=== PATIENT | male | born 1950 | race African-American/Black ===

== ENCOUNTER 2020-09-11 13:51 | Inpatient (IN) | payer MEDICARE ==
[~2020-09-11] VITALS: Ht 175.3 cm; Wt 77.4 kg
[2020-09-11] MEDS ORDERED: MORPHINE SULFATE 10 MG/ML VIAL. IV ONE (17:45)
[2020-09-11] MEDS ORDERED: IV NORMAL SALINE 1000ML BAG 1,000 ML IV ONE (17:45)
[2020-09-11 17:52] LABS: BASO # 0.1 x10^3/uL (0.0-0.2); BASO % 1 % (0-3); EOS % 0 % (0-3); HEMATOCRIT 29.8 % (39.0-53.0); HEMOGLOBIN 9.4 g/dL (13.0-17.5); LYMPH # 1.5 x10^3/uL (1.0-4.8); LYMPH % 16 % (24-48); MEAN CORPUSCULAR HEMOGLOBIN 24 pg (25-35); MEAN CORPUSCULAR HGB CONC 32 g/dL (31-37); MEAN CORPUSCULAR VOLUME 76 fL (79-100); MONO # 0.4 x10^3/uL (0.0-1.1); MONO % 4 % (0-9); NEUT # 7.2 x10^3/uL (1.8-7.7); NEUT % 78 % (31-73); PLATELET COUNT 435 x10^3/uL (140-400); RED BLOOD COUNT 3.93 x10^6/uL (4.30-5.70); RED CELL DISTRIBUTION WIDTH 16.1 % (11.5-14.5); WHITE BLOOD COUNT 9.2 x10^3/uL (4.0-11.0)
--- NOTE | 2020-09-11 18:28 | ED.ADGEN ---
Past Medical History Past Medical History: Diabetes-Type II Past Surgical History: Other Additional Past Surgical Histo: leg sx Smoking Status: Former Smoker Alcohol Use: Occasionally General Adult EDM: Chief Complaint: ABDOMINAL PAIN HPI: HPI: Patient 69-year-old male presents to the emergency room complaining of diffuse abdominal pain that has been ongoing for the last 5 months. He describes it as a gnawing pain that has progressively gotten worse. He states that he cannot eat or drink much. He intermittently has diarrhea and constipation. He has nausea without vomiting. He has lost over 30 pounds in the last 5 months. He states that the pain has become unbearable which is why he is coming to the emergency room today. He denies any cough, shortness of breath, URI symptoms, fevers, chills, sweats. Review of Systems: Review of Systems: Complete ROS is negative unless otherwise documented in HPI Constitutional: Denies fever or chills but has had weight loss Eyes: Denies change in visual acuity HENT: Denies sore throat Respiratory: Denies cough or shortness of breath Cardiovascular: Denies chest pain or edema GI: Complains of abdominal pain with fullness : Denies dysuria Musculoskeletal: Denies back pain or joint pain Integument: Denies rash Neurologic: Denies headache or focal weakness Psychiatric: Denies depression or anxiety Current Medications: Current Medications Medications (Trade) Dose Ordered Sig/Syeda Start Time Stop Time Status Last Admin Dose Admin Info (CONTRAST GIVEN -- Rx MONITORING) 1 each PRN DAILY PRN 09/11/20 19:00 09/13/20 18:59 Iohexol (Omnipaque 240 Mg/ml) 30 ml 1X ONCE 09/11/20 19:00 09/11/20 19:01 DC Morphine Sulfate (Morphine Sulfate) 2 mg PRN Q2HR PRN 09/11/20 20:15 09/12/20 20:14 Ondansetron HCl (Zofran) 4 mg PRN Q8HRS PRN 09/11/20 20:15 09/12/20 20:14 Sodium Chloride 1,000 ml @ 1,000 mls/hr 1X ONCE 09/11/20 17:45 09/11/20 18:44 DC 09/11/20 17:47 1,000 MLS/HR Allergies: Allergies: Allergies Coded Allergies Type Severity Reaction Last Updated Verified No Known Drug Allergies 09/11/20 No Physical Exam: PE: General: Awake, alert, NAD. Well Nourished, well hydrated. Cooperative HEENT: Atraumatic, EOMI, PERRL, airway patent, moist oral mucosa Neck: Supple, trachea midline Respiratory: CTA bilaterally, normal effort, no wheezing/crackles CV: RRR, no murmur, cap refill <2 GI: Soft, nondistended, nontender, no masses MSK: No obvious deformities Skin: Warm, dry, intact Neuro: A&O x3, speech NL, sensory and motor grossly intact, no focal deficits Psych: Normal affect, normal mood, not suicidal or homicidal Current Patient Data: Labs: Laboratory Tests Test 09/11/20 17:45 09/11/20 18:24 White Blood Count 9.2 x10^3/uL (4.0-11.0) Red Blood Count 3.93 x10^6/uL (4.30-5.70) L Hemoglobin 9.4 g/dL (13.0-17.5) L Hematocrit 29.8 % (39.0-53.0) L Mean Corpuscular Volume 76 fL (79-100) L Mean Corpuscular Hemoglobin 24 pg (25-35) L Mean Corpuscular Hemoglobin Concent 32 g/dL (31-37) Red Cell Distribution Width 16.1 % (11.5-14.5) H Platelet Count 435 x10^3/uL (140-400) H Neutrophils (%) (Auto) 78 % (31-73) H Lymphocytes (%) (Auto) 16 % (24-48) L Monocytes (%) (Auto) 4 % (0-9) Eosinophils (%) (Auto) 0 % (0-3) Basophils (%) (Auto) 1 % (0-3) Neutrophils # (Auto) 7.2 x10^3/uL (1.8-7.7) Lymphocytes # (Auto) 1.5 x10^3/uL (1.0-4.8) Monocytes # (Auto) 0.4 x10^3/uL (0.0-1.1) Eosinophils # (Auto) 0.0 x10^3/uL (0.0-0.7) Basophils # (Auto) 0.1 x10^3/uL (0.0-0.2) Sodium Level 141 mmol/L (136-145) Potassium Level 4.7 mmol/L (3.5-5.1) Chloride Level 106 mmol/L (98-107) Carbon Dioxide Level 27 mmol/L (21-32) Anion Gap 8 (6-14) Blood Urea Nitrogen 23 mg/dL (8-26) Creatinine 2.2 mg/dL (0.7-1.3) H Estimated GFR (Cockcroft-Gault) 36.1 BUN/Creatinine Ratio 10 (6-20) Glucose Level 234 mg/dL (70-99) H Calcium Level 8.2 mg/dL (8.5-10.1) L Total Bilirubin 0.3 mg/dL (0.2-1.0) Aspartate Amino Transferase (AST) 34 U/L (15-37) Alanine Aminotransferase (ALT) 15 U/L (16-63) L Alkaline Phosphatase 104 U/L (46-116) Total Protein 5.6 g/dL (6.4-8.2) L Albumin 2.1 g/dL (3.4-5.0) L Albumin/Globulin Ratio 0.6 (1.0-1.7) L Lipase 62 U/L (73-393) L Laboratory Tests 09/11/20 17:45 Laboratory Tests 09/11/20 18:24 Vital Signs: Vital Signs Date Time Temp Pulse Resp B/P (MAP) Pulse Ox O2 Delivery O2 Flow Rate FiO2 09/11/20 20:00 87 16 110/61 (77) 98 Room Air 09/11/20 15:50 98.6 98.6 EKG: EKG: [] Heart Score: Risk Factors: Risk Factors: DM, Current or recent (<one month) smoker, HTN, HLP, family history of CAD, obesity. Risk Scores: Score 0 - 3: 2.5% MACE over next 6 weeks - Discharge Home Score 4 - 6: 20.3% MACE over next 6 weeks - Admit for Clinical Observation Score 7 - 10: 72.7% MACE over next 6 weeks - Early Invasive Strategies Radiology/Procedures: Radiology/Procedures: [][facility] [address] [place] [address] IMAGING REPORT Signed PATIENT: REMI ROLLINS Michael ACCOUNT: [id number] : 1950 LOCATION: ER AGE: 69 SEX: M EXAM STATUS: REG ER ORD. PHYSICIAN: KARYN MAURICIO MD REASON: abdominal pain, elderly, drink @1750 scan at 1850, omni 240 30 ml po PROCEDURE: CT ABD PEL W/ORAL CONTRST ONLY Exam: CT of abdomen and pelvis with contrast INDICATION: Abdominal pain, TECHNIQUE: Sequential axial images through the abdomen and pelvis obtained without IV contrast. Sagittal and coronal reformatted images were reconstructed from the axial data and reviewed. Comparisons: None FINDINGS: Heart size is normal. No pericardial effusion. There are numerous pulmonary nodules in the lungs, largest is a spiculated nodule right middle lobe which measures 1.2 cm. Evaluation of solid organs limited secondary to noncontrast technique. There are numerous vague hypoattenuating masses noted throughout the liver, for example in the right anterior hepatic lobe measuring approximately 3.3 cm series 3 image 27. Spleen, pancreas, gallbladder and adrenals are unremarkable. No perinephric inflammation or hydronephrosis. No renal or ureteral calculi are identified. Bladder is decompressed not well evaluated. Prostate is not enlarged. Diverticulosis noted in the sigmoid colon without evidence of acute diverticulitis. There is masslike appearance at the hepatic flexure of the colon. The cecum is mildly dilated. There is adjacent fat stranding. Small amount of free fluid. No free intra-abdominal air. Abdominal aorta has a normal course and caliber. No enlarged intra-abdominal lymph nodes are identified. Numerous sclerotic lesions are noted in the pelvis. IMPRESSION: 1. Findings concerning for malignancy at the hepatic flexure of the colon. The more proximal ascending colon is dilated with adjacent fat stranding which may relate to colitis. Mass may also be causing obstruction at this site. 2. Numerous vague hypoattenuating masses in the liver concerning for metastatic disease. 3. Numerous pulmonary nodules again concerning for metastatic disease. Exposure: One or more of the following in the visualized dose reduction techniques were utilized for this examination: 1. Automated exposure control 2. Adjustment of the MA and/or KV according to patient size 3. Use of iterative of reconstructive technique Electronically signed by: Aleah Berrios MD (09/11/2020 7:27 PM) [facility] DICTATED and SIGNED BY: ALEAH BERRIOS MD DATE: 09/11/20 [id number] 0 Course & Med Decision Making: Course & Med Decision Making Pertinent Labs and Imaging studies reviewed. (See chart for details) Patient is a 69 year-old male who presents to the Emergency Room complaining of abdominal pain and weight loss. On exam, has diffuse mild tenderness. Due to patients history, age, and exam work up will need to be done to evaluate for intra-abdominal pathology. Work up ordered includes CBC, CMP, lipase, UA, CT abdomen and pelvis. Patient's pain is not epigastric and a cardiac evaluation does not be needed for atypical pain. Ddx includes gastritis, colitis, malignancy. Patient is discussed with oncoming physician who will assume care. Patient initially seen by Dr. Mauricio and care endorsed to me. Patient had weigh t loss and unfortunately CT is concerning for colon cancer. Patient also has a plus obstructing mass in the colon. Discussed case with Dr. Vallejo will admit. I will place consult with GI, surgery as well as heme-onc. Discussed with patient the results and need for admission. Dragon Disclaimer: Dragon Disclaimer: This electronic medical record was generated, in whole or in part, using a voice recognition dictation system. Departure Departure Impression: Primary Impression: Abdominal pain Additional Impression: Cancer of ascending colon metastatic to intra-abdominal lymph node Disposition: 09 ADMITTED INPT THIS HOSP Admitting Physician: NICA (DENISE) Condition: STABLE Referrals: JUAN BLAKE DO (PCP) Problem Qualifiers KARYN MAURICIO MD Sep 11, 2020 18:28 JOAQUÍN NICOLE MD Sep 11, 2020 19:46
[2020-09-11 18:36] LABS: CALCIUM 8.2 mg/dL (8.5-10.1); CREATININE 2.2 mg/dL (0.7-1.3); GFR 36.1; POTASSIUM 4.7 mmol/L (3.5-5.1)
[2020-09-11 18:41] LABS: ALBUMIN 2.1 g/dL (3.4-5.0); ALBUMIN/GLOBULIN RATIO 0.6 (1.0-1.7); TOTAL BILIRUBIN 0.3 mg/dL (0.2-1.0); TOTAL PROTEIN 5.6 g/dL (6.4-8.2)
[2020-09-11] MEDS ORDERED: IOHEXOL 240 MG/ML 50ML VIAL. PO ONE (19:00)
[2020-09-11] MEDS ORDERED: CONTRAST GIVEN. MC PRN (19:00)
--- NOTE | 2020-09-11 19:30 | RAD ---
Exam: CT of abdomen and pelvis with contrast INDICATION: Abdominal pain, TECHNIQUE: Sequential axial images through the abdomen and pelvis obtained without IV contrast. Sagit edgar and coronal reformatted images were reconstructed from the axial data and reviewed. Comparisons: None FINDINGS: Heart size is normal. No pericardial effusion. There are numerous pulmonary nodules in the lungs, lar gest is a spiculated nodule right middle lobe which measures 1.2 cm. Evaluation of solid organs limited secondary to noncontrast technique. There are numerous vague hypoattenuating masses noted throughout the liver, for example in the right anterior hepatic lobe measuring approximately 3.3 cm series 3 image 27. Spleen, pancreas, gallbladder and adrenals are unremarkable. No perinephric inflammation or hydronephrosis. No renal or ureteral calculi are identified. Bladder is decompressed not well evaluated. Prostate is not enlarged. Diverticulosis noted in the sigmoid colon without evidence of acute diverticulitis. There is masslike appearance at the hepatic flexure of the colon. The cecum is mildly dilated. There is adjacent fat s tranding. Small amount of free fluid. No free intra-abdominal air. Abdominal aorta has a normal course and caliber. No enlarged intra-abdominal lymph nodes are identified. Numerous sclerotic lesions are noted in the pelvis. IMPRESSION: 1. Findings concerning for malignancy at the hepatic flexure of the colon. The more proximal ascendi ng colon is dilated with adjacent fat stranding which may relate to colitis. Mass may also be causing obstruction at this site. 2. Numerous vague hypoattenuating masses in the liver concerning for metastatic disease. 3. Numerous pulmonary nodules again concerning for metastatic disease. Exposure: One or more of the following in the visualized dose reduction techniques were utilized for this examination: 1. Automated exposure control 2. Adjustment of the MA and/or KV according to patient size 3. Use of iterative of reconstructive technique Electronically signed by: Aleah Munson MD (09/11/2020 7:27 PM) [facility]
[2020-09-11] MEDS ORDERED: MORPHINE SULFATE 2 MG/ML VIAL. IV PRN (20:15)
[2020-09-11] MEDS ORDERED: ONDANSETRON PF 4 MG/2 ML VIAL. IV PRN (20:15)
[2020-09-11 21:30] VITALS: BP 129/74
--- NOTE | 2020-09-11 22:00 | NUR ---
ADMIT NOTE The patient, REMI ROLLINS, 69 y/o, M admitted by JAZMÍN WALKER MD, was given written information regarding hospital policies, unit procedures and contact persons. Patient orientated to room, plan of care discussed, and admit packet reviewed. Patient's belongings checked and allergies/home medications verified. Patient now in bed, bed in lowest/locked position, and call light within reach; no other needs voiced at this time.
[2020-09-11] MEDS ORDERED: GLIP5TAB10 PO (22:19)
[2020-09-11] MEDS ORDERED: LISI-517 PO (22:19)
[2020-09-11 23:34] VITALS: BP 118/64
[2020-09-12 03:00] VITALS: BP 110/59
[2020-09-12 07:00] VITALS: BP 112/60
--- NOTE | 2020-09-12 07:12 | PDOC1 ---
History and Physical Date of Admission Date of Admission DATE: 09/12/20 TIME: 06:49 Identification/Chief Complaint Chief Complaint Abdominal pain Source Source: Chart review, Patient History of Present Illness History of Present Illness Patient is 69-year-old male with past medical history DM2, who presents to the ER with complaints of worsening diffuse abdominal pain for the past 5 months. He reports aching/gnawing pain, 8/10. He has associated decreased appetite, intermittent constipation, and intermittent diarrhea. He notes roughly 30 pound unintentional weight loss over this time. He denies any specific aggravating or alleviating symptoms. He did have an appointment earlier this month for CT abdomen that he missed, and was rescheduled for September. He came to the ED due to worsening of his symptoms. CT abdomen pelvis obtained on admission showed findings concerning for malignancy of the colon. Will admit patient for further medical management. Past Medical History Past Medical History DM2 Past Surgical History Past Surgical History: Other (Leg surgery) Social History Smoke: Quit ALCOHOL: occassional Drugs: None Current Problem List Problem List Problems Medical Problems: (1) Abdominal pain Status: Acute (2) Cancer of ascending colon metastatic to intra-abdominal lymph node Status: Acute Current Medications Current Medications Current Medications Sodium Chloride 1,000 ml @ 1,000 mls/hr 1X ONCE IV Last administered on 09/11/20at 17:47; Start 09/11/20 at 17:45; Stop 09/11/20 at 18:44; Status DC Morphine Sulfate (Morphine Sulfate) 5 mg 1X ONCE IV Last administered on 09/11/20at 17:48; Start 09/11/20 at 17:45; Stop 09/11/20 at 17:46; Status DC Iohexol (Omnipaque 240 Mg/ml) 30 ml 1X ONCE PO Last administered on 09/11/20at 17:50; Start 09/11/20 at 19:00; Stop 09/11/20 at 19:01; Status DC Info (CONTRAST GIVEN -- Rx MONITORING) 1 each PRN DAILY PRN MC SEE COMMENTS; Start 09/11/20 at 19:00; Stop 09/13/20 at 18:59 Ondansetron HCl (Zofran) 4 mg PRN Q8HRS PRN IV NAUSEA/VOMITING; Start 09/11/20 at 20:15; Stop 12/27/20 at 20:14 Morphine Sulfate (Morphine Sulfate) 2 mg PRN Q2HR PRN IV PAIN Last administered on 09/11/20at 22:03; Start 09/11/20 at 20:15; Stop 09/12/20 at 20:14 Active Scripts Active Reported Glipizide 5 Mg Tablet 1 Tab PO BID Lisinopril 5 Mg Tablet 5 Mg PO BID Allergies Allergies: Coded Allergies: No Known Drug Allergies (Unverified , 09/11/20) ROS Review of System GENERAL: No history of weight change, weakness or fevers. SKIN: No bruising, hair changes or rashes. EYES: No blurred, double or loss of vision. NOSE AND THROAT: No history of nosebleeds, hoarseness or sore throat. HEART: Denies chest pain, denies palpitations. LUNGS: Denies cough, hemoptysis, wheezing or shortness of breath. GASTROINTESTINAL: Abdominal pain, diarrhea, constipation, decreased appetite GENITOURINARY: Denies dysuria, frequency, urgency, hematuria. NEUROLOGIC: Denies history of numbness, tingling, tremor or weakness. PSYCHIATRIC: Denies anxiety, denies depression. ENDOCRINE: No history of heat or cold intolerance, polyuria or polydipsia. EXTREMITIES: Denies muscle weakness, joint pain, pain on walking or stiffness. Physical Exam Physical Exam General: Alert, Oriented X3, Cooperative, mild distress HEENT: PERRLA, EOMI Lungs: Clear to auscultation, Normal air movement Heart: RRR, no murmurs Cardiovascular: S1, S2 Abdomen: Normal bowel sounds, Soft, No tenderness Extremities: No clubbing, No cyanosis Skin: No rashes, No significant lesion Neuro: Normal speech, Normal tone, Sensation intact Psych/Mental Status: Mental status NL, Mood NL Vitals Vitals Vital Signs Date Time Temp Pulse Resp B/P (MAP) Pulse Ox O2 Delivery O2 Flow Rate FiO2 09/12/20 03:00 99.0 90 18 110/59 (76) 100 Room Air 99.0 Labs Labs Laboratory Tests Test 09/11/20 17:45 09/11/20 18:24 White Blood Count 9.2 x10^3/uL (4.0-11.0) Red Blood Count 3.93 x10^6/uL (4.30-5.70) Hemoglobin 9.4 g/dL (13.0-17.5) Hematocrit 29.8 % (39.0-53.0) Mean Corpuscular Volume 76 fL (79-100) Mean Corpuscular Hemoglobin 24 pg (25-35) Mean Corpuscular Hemoglobin Concent 32 g/dL (31-37) Red Cell Distribution Width 16.1 % (11.5-14.5) Platelet Count 435 x10^3/uL (140-400) Neutrophils (%) (Auto) 78 % (31-73) Lymphocytes (%) (Auto) 16 % (24-48) Monocytes (%) (Auto) 4 % (0-9) Eosinophils (%) (Auto) 0 % (0-3) Basophils (%) (Auto) 1 % (0-3) Neutrophils # (Auto) 7.2 x10^3/uL (1.8-7.7) Lymphocytes # (Auto) 1.5 x10^3/uL (1.0-4.8) Monocytes # (Auto) 0.4 x10^3/uL (0.0-1.1) Eosinophils # (Auto) 0.0 x10^3/uL (0.0-0.7) Basophils # (Auto) 0.1 x10^3/uL (0.0-0.2) Sodium Level 141 mmol/L (136-145) Potassium Level 4.7 mmol/L (3.5-5.1) Chloride Level 106 mmol/L (98-107) Carbon Dioxide Level 27 mmol/L (21-32) Anion Gap 8 (6-14) Blood Urea Nitrogen 23 mg/dL (8-26) Creatinine 2.2 mg/dL (0.7-1.3) Estimated GFR (Cockcroft-Gault) 36.1 BUN/Creatinine Ratio 10 (6-20) Glucose Level 234 mg/dL (70-99) Calcium Level 8.2 mg/dL (8.5-10.1) Total Bilirubin 0.3 mg/dL (0.2-1.0) Aspartate Amino Transf (AST/SGOT) 34 U/L (15-37) Alanine Aminotransferase (ALT/SGPT) 15 U/L (16-63) Alkaline Phosphatase 104 U/L (46-116) Total Protein 5.6 g/dL (6.4-8.2) Albumin 2.1 g/dL (3.4-5.0) Albumin/Globulin Ratio 0.6 (1.0-1.7) Lipase 62 U/L (73-393) Laboratory Tests Test 09/11/20 17:45 09/11/20 18:24 White Blood Count 9.2 x10^3/uL (4.0-11.0) Red Blood Count 3.93 x10^6/uL (4.30-5.70) Hemoglobin 9.4 g/dL (13.0-17.5) Hematocrit 29.8 % (39.0-53.0) Mean Corpuscular Volume 76 fL (79-100) Mean Corpuscular Hemoglobin 24 pg (25-35) Mean Corpuscular Hemoglobin Concent 32 g/dL (31-37) Red Cell Distribution Width 16.1 % (11.5-14.5) Platelet Count 435 x10^3/uL (140-400) Neutrophils (%) (Auto) 78 % (31-73) Lymphocytes (%) (Auto) 16 % (24-48) Monocytes (%) (Auto) 4 % (0-9) Eosinophils (%) (Auto) 0 % (0-3) Basophils (%) (Auto) 1 % (0-3) Neutrophils # (Auto) 7.2 x10^3/uL (1.8-7.7) Lymphocytes # (Auto) 1.5 x10^3/uL (1.0-4.8) Monocytes # (Auto) 0.4 x10^3/uL (0.0-1.1) Eosinophils # (Auto) 0.0 x10^3/uL (0.0-0.7) Basophils # (Auto) 0.1 x10^3/uL (0.0-0.2) Sodium Level 141 mmol/L (136-145) Potassium Level 4.7 mmol/L (3.5-5.1) Chloride Level 106 mmol/L (98-107) Carbon Dioxide Level 27 mmol/L (21-32) Anion Gap 8 (6-14) Blood Urea Nitrogen 23 mg/dL (8-26) Creatinine 2.2 mg/dL (0.7-1.3) Estimated GFR (Cockcroft-Gault) 36.1 BUN/Creatinine Ratio 10 (6-20) Glucose Level 234 mg/dL (70-99) Calcium Level 8.2 mg/dL (8.5-10.1) Total Bilirubin 0.3 mg/dL (0.2-1.0) Aspartate Amino Transf (AST/SGOT) 34 U/L (15-37) Alanine Aminotransferase (ALT/SGPT) 15 U/L (16-63) Alkaline Phosphatase 104 U/L (46-116) Total Protein 5.6 g/dL (6.4-8.2) Albumin 2.1 g/dL (3.4-5.0) Albumin/Globulin Ratio 0.6 (1.0-1.7) Lipase 62 U/L (73-393) Images Images Signed PATIENT: REMI ROLLINS ACCOUNT: [id number] : 1950 LOCATION: ER AGE: 69 SEX: M EXAM STATUS: REG ER ORD. PHYSICIAN: KARYN MAURICIO MD REASON: abdominal pain, elderly, drink @1750 scan at 1850, omni 240 30 ml po PROCEDURE: CT ABD PEL W/ORAL CONTRST ONLY Exam: CT of abdomen and pelvis with contrast INDICATION: Abdominal pain, TECHNIQUE: Sequential axial images through the abdomen and pelvis obtained without IV contrast. Sagittal and coronal reformatted images were reconstructed from the axial data and reviewed. Comparisons: None FINDINGS: Heart size is normal. No pericardial effusion. There are numerous pulmonary no dules in the lungs, largest is a spiculated nodule right middle lobe which measures 1.2 cm. Evaluation of solid organs limited secondary to noncontrast technique. There are numerous vague hypoattenuating masses noted throughout the liver, for example in the right anterior hepatic lobe measuring approximately 3.3 cm series 3 image 27. Spleen, pancreas, gallbladder and adrenals are unremarkable. No perinephric inflammation or hydronephrosis. No renal or ureteral calculi are identified. Bladder is decompressed not well evaluated. Prostate is not enlarged. Diverticulosis noted in the sigmoid colon without evidence of acute diverti culitis. There is masslike appearance at the hepatic flexure of the colon. The cecum is mildly dilated. There is adjacent fat stranding. Small amount of free fluid. No free intra-abdominal air. Abdominal aorta has a normal course and caliber. No enlarged intra-abdominal lymph nodes are identified. Numerous sclerotic lesions are noted in the pelvis. IMPRESSION: 1. Findings concerning for malignancy at the hepatic flexure of the colon. The more proximal ascending colon is dilated with adjacent fat stranding which may relate to colitis. Mass may also be causing obstruction at this site. 2. Numerous vague hypoattenuating masses in the liver concerning for metastatic disease. 3. Numerous pulmonary nodules again concerning for metastatic disease. VTE Prophylaxis Ordered VTE Prophylaxis Devices: No VTE Pharmacological Prophylaxi: Yes Assessment/Plan Assessment/Plan Colon cancer Anemia NITESH Vasomotor nephropathy DM2 with hyperglycemia Severe malnutrition Plan: CT abdomen/pelvis findings concerning for malignancy at the hepatic flexure of the colon Will admit patient and consult general surgery, and GI Consult placed to Hematology/Oncology Pain management, antiemetics Basal insulin, MDSS insulin Anemia likely secondary to GI malignancy Unsure of baseline kidney function; IV fluids FEN - ADA diet PPX - Lovenox FULL CODE Dispo - inpatient for above Patient does not name a surrogate decision-maker at this time Justifications for Admission Other Justification CARLINE GONZALEZ MD Sep 12, 2020 07:11
[2020-09-12] MEDS ORDERED: ZOLPIDEM 5 MG TABLET. PO PRN (07:15)
[2020-09-12] MEDS ORDERED: MAGNESIUM HYDROXIDE 2,400 MG/30 ML ORAL.SUSP. PO PRN (07:15)
[2020-09-12] MEDS ORDERED: CALCIUM CARBONATE 500 MG TAB.CHEW PO PRN (07:15)
[2020-09-12] MEDS ORDERED: traMADol 50 MG TABLET PO PRN (07:15)
[2020-09-12] MEDS ORDERED: BISACODYL 10 MG SUPP.RECT. PR PRN (07:15)
[2020-09-12] MEDS ORDERED: ACETAMINOPHEN 325 MG TABLET. PO PRN (07:15)
[2020-09-12] MEDS ORDERED: ONDANSETRON PF 4 MG/2 ML VIAL. IVP PRN (07:15)
[2020-09-12] MEDS ORDERED: IBUPROFEN 400 MG TABLET. PO PRN (07:15)
[2020-09-12] MEDS ORDERED: MAG HYDROX/ALUMINUM HYD/SIMETH 30 ML ORAL.SUSP PO PRN (07:15)
[2020-09-12] MEDS ORDERED: fentaNYL PF VIAL 100 MCG/2 ML VIAL IVP PRN (07:15)
[2020-09-12] MEDS ORDERED: DEXTROSE 50% 25 GM / 50ML DISP.SYRIN. IV PRN (07:15)
[2020-09-12] MEDS ORDERED: HYDROcodone/APAP 5/325MG 1 TAB TABLET PO PRN (07:15)
[2020-09-12] MEDS: ENOXAPARIN 40 MG/0.4 ML SYRINGE. SQ SCH (08:57)
[2020-09-12] MEDS: INSULIN LISPRO 300 UNITS/3 ML VIAL. SQ SCH ×3 (09:01→16:42)
--- NOTE | 2020-09-12 10:19 | PDOC2 ---
CONSULT Date of Consult Date of Consult DATE: 09/12/20 TIME: 10:16 History of Present Illness Reason for Visit: The patient is a 69 year old male who was admitted due to abdominal pain. He has been having worsening pain for the last 5 months. He saw his PCP a month ago and had plans for a CT scan earlier in August, but missed the appointment. The pain became unbearable prompting him to report to the ER. The pain is located in the mid abdomen and is worse after eating. He states he has lost 50 lbs over the last several months. He denies noticing blood in the stool. Past Medical History Past Medical History Diabetes, hypertension Past Surgical History Past Surgical History R leg fracture repair Past Surgical History: Other (Leg surgery) Social History Quit ALCOHOL: occassional Drugs: None Current Problem List Problem List Problems Medical Problems: (1) Abdominal pain Status: Acute (2) Cancer of ascending colon metastatic to intra-abdominal lymph node Status: Acute Current Medications Current Medications Current Medications Sodium Chloride 1,000 ml @ 1,000 mls/hr 1X ONCE IV Last administered on 09/11/20at 17:47; Start 09/11/20 at 17:45; Stop 09/11/20 at 18:44; Status DC Morphine Sulfate (Morphine Sulfate) 5 mg 1X ONCE IV Last administered on 09/11/20at 17:48; Start 09/11/20 at 17:45; Stop 09/11/20 at 17:46; Status DC Iohexol (Omnipaque 240 Mg/ml) 30 ml 1X ONCE PO Last administered on 09/11/20at 17:50; Start 09/11/20 at 19:00; Stop 09/11/20 at 19:01; Status DC Info (CONTRAST GIVEN -- Rx MONITORING) 1 each PRN DAILY PRN MC SEE COMMENTS; Start 09/11/20 at 19:00; Stop 09/13/20 at 18:59 Ondansetron HCl (Zofran) 4 mg PRN Q8HRS PRN IV NAUSEA/VOMITING; Start 09/11/20 at 20:15; Stop 09/12/20 at 20:14 Morphine Sulfate (Morphine Sulfate) 2 mg PRN Q2HR PRN IV PAIN Last administered on 09/11/20at 22:03; Start 09/11/20 at 20:15; Stop 09/12/20 at 20:14 Insulin Glargine (Lantus Syringe) 10 unit QHS SQ ; Start 09/12/20 at 21:00 Insulin Human Lispro (HumaLOG) 0-9 UNITS TIDWMEALS SQ Last administered on 09/12/20at 09:01; Start 09/12/20 at 08:00 Dextrose (Dextrose 50%-Water Syringe) 12.5 gm PRN Q15MIN PRN IV SEE COMMENTS; Start 09/12/20 at 07:15 Tramadol HCl (Ultram) 50 mg PRN Q6HRS PRN PO PAIN MILD 2ND CHOICE; Start 09/12/20 at 07:15 Fentanyl Citrate (Fentanyl 2ml Vial) 50 mcg PRN Q2HR PRN IVP PAIN SEVERE; Start 09/12/20 at 07:15 Ondansetron HCl (Zofran) 4 mg PRN Q6HRS PRN IVP NAUSEA/VOMITING; Start 09/12/20 at 07:15 Al Hydroxide/Mg Hydroxide (Mylanta Plus Xs) 30 ml PRN Q3HRS PRN PO HEARTBURN / GAS; Start 09/12/20 at 07:15 Calcium Carbonate/ Glycine (Tums) 500 mg PRN Q3HRS PRN PO UPSET STOMACH; Start 09/12/20 at 07:15 Zolpidem Tartrate (Ambien) 5 mg PRN QHS PRN PO INSOMNIA, MAY REPEAT IN 1HR; Start 09/12/20 at 07:15 Acetaminophen/ Hydrocodone Bitart (Lortab 5/325) 1 tab PRN Q4HRS PRN PO MILD PAIN 1-3 1ST CHOICE; Start 09/12/20 at 07:15 Acetaminophen/ Hydrocodone Bitart (Lortab 5/325) 2 tab PRN Q4HRS PRN PO MODERATE PAIN, SEVERE PAIN; Start 09/12/20 at 07:15 Acetaminophen (Tylenol) 650 mg PRN Q6HRS PRN PO Headaches, Temp > 101.5F; Start 09/12/20 at 07:15 Ibuprofen (Motrin) 400 mg PRN Q6HRS PRN PO INFLAMMATION; Start 09/12/20 at 07:15 Magnesium Hydroxide (Milk Of Magnesia) 2,400 mg PRN Q12HR PRN PO CONSTIPATION; Start 09/12/20 at 07:15 Bisacodyl (Dulcolax Supp) 10 mg PRN DAILY PRN [place] CONSTIPATION; Start 09/12/20 at 07:15 Enoxaparin Sodium (Lovenox 40mg Syringe) 40 mg Q24H SQ Last administered on 09/12/20at 08:57; Start 09/12/20 at 09:00 Active Scripts Active Reported Glipizide 5 Mg Tablet 1 Tab PO BID Lisinopril 5 Mg Tablet 5 Mg PO BID Allergies Allergies: Coded Allergies: No Known Drug Allergies (Unverified , 09/11/20) ROS General: YES: Other (weight loss) PSYCHOLOGICAL ROS: No: Anxiety, Behavioral Disorder, Concentration difficultie, Decreased libido, Depression, Disorientation, Hallucinations, Hostility, Irritablity, Memory difficulties, Mood Swings, Obsessive thoughts, Physical abuse, Sexual abuse, Sleep disturbances, Suicidal ideation, Other Eyes: No Blurry vision, No Decreased vision, No Double vision, No Dry eyes, No Excessive tearing, No Eye Pain, No Itchy Eyes, No Loss of vision, No Photophobia, No Scotomata, No Uses contacts, No Uses glasses, No Other HEENT: No: Heacaches, Visual Changes, Hearing change, Nasal congestion, Nasal discharge, Oral lesions, Sinus pain, Sore Throat, Epistaxis, Sneezing, Snoring, Tinnitus, Vertigo, Vocal changes, Other Hematological and Lymphatic: No: Bleeding Problems, Blood Clots, Blood Transfusions, Brusing, Night Sweats, Pallor, Swollen Lymph Nodes, Other ENDOCRINE: No: Breast Changes, Galactorrhea, Hair Pattern Changes, Hot Flashes, Malaise/lethargy, Mood Swings, Palpitations, Polydipsia/polyuria, Skin Changes, Temperature Intolerance, Unexpected Weight Changes, Other Cardiovascular: No Chest Pain, No Palpitations, No Orthopnea, No Paroxysmal Noc. Dyspnea, No Edema, No Lt Headedness, No Other Gastrointestinal: Yes Abdominal Pain Genitourinary: No Dysuria, No Frequency, No Incontinence, No Hematuria, No Retention, No Discharge, No Urgency, No Pain, No Flank Pain, No Other, No , No , No , No , No , No , No Musculoskeletal: No Gait Disturbance, No Joint Pain, No Joint Stiffness, No Joint Swelling, No Muscle Pain, No Muscular Weakness, No Pain In:, No Swelling In:, No Other Skin: No Dry Skin, No Eczema, No Hair Changes, No Lumps, No Mole Changes, No Mottling, No Nail Changes, No Pruritus, No Rash, No Skin Lesion Changes, No Other, No Acne Physical Exam General: Alert, Oriented X3, Cooperative HEENT: Atraumatic Lungs: Clear to auscultation Abdomen: Soft (mildly tender with palpation, no guarding or peritoneal signs) Extremities: No clubbing, No cyanosis Skin: No rashes Neuro: Normal speech Psych/Mental Status: Mental status NL MUSCULOSKELETAL: No joint tenderness, No deformity Vitals VITALS Vital Signs Date Time Temp Pulse Resp B/P (MAP) Pulse Ox O2 Delivery O2 Flow Rate FiO2 09/12/20 07:00 98.3 81 18 112/60 (77) 100 Room Air 98.3 Labs Labs Laboratory Tests Test 09/11/20 17:45 09/11/20 18:24 09/12/20 08:50 White Blood Count 9.2 x10^3/uL (4.0-11.0) Red Blood Count 3.93 x10^6/uL (4.30-5.70) Hemoglobin 9.4 g/dL (13.0-17.5) Hematocrit 29.8 % (39.0-53.0) Mean Corpuscular Volume 76 fL (79-100) Mean Corpuscular Hemoglobin 24 pg (25-35) Mean Corpuscular Hemoglobin Concent 32 g/dL (31-37) Red Cell Distribution Width 16.1 % (11.5-14.5) Platelet Count 435 x10^3/uL (140-400) Neutrophils (%) (Auto) 78 % (31-73) Lymphocytes (%) (Auto) 16 % (24-48) Monocytes (%) (Auto) 4 % (0-9) Eosinophils (%) (Auto) 0 % (0-3) Basophils (%) (Auto) 1 % (0-3) Neutrophils # (Auto) 7.2 x10^3/uL (1.8-7.7) Lymphocytes # (Auto) 1.5 x10^3/uL (1.0-4.8) Monocytes # (Auto) 0.4 x10^3/uL (0.0-1.1) Eosinophils # (Auto) 0.0 x10^3/uL (0.0-0.7) Basophils # (Auto) 0.1 x10^3/uL (0.0-0.2) Sodium Level 141 mmol/L (136-145) Potassium Level 4.7 mmol/L (3.5-5.1) Chloride Level 106 mmol/L (98-107) Carbon Dioxide Level 27 mmol/L (21-32) Anion Gap 8 (6-14) Blood Urea Nitrogen 23 mg/dL (8-26) Creatinine 2.2 mg/dL (0.7-1.3) Estimated GFR (Cockcroft-Gault) 36.1 BUN/Creatinine Ratio 10 (6-20) Glucose Level 234 mg/dL (70-99) Calcium Level 8.2 mg/dL (8.5-10.1) Total Bilirubin 0.3 mg/dL (0.2-1.0) Aspartate Amino Transf (AST/SGOT) 34 U/L (15-37) Alanine Aminotransferase (ALT/SGPT) 15 U/L (16-63) Alkaline Phosphatase 104 U/L (46-116) Total Protein 5.6 g/dL (6.4-8.2) Albumin 2.1 g/dL (3.4-5.0) Albumin/Globulin Ratio 0.6 (1.0-1.7) Lipase 62 U/L (73-393) Glucose (Fingerstick) 168 mg/dL (70-99) Laboratory Tests Test 09/11/20 17:45 09/11/20 18:24 09/12/20 08:50 White Blood Count 9.2 x10^3/uL (4.0-11.0) Red Blood Count 3.93 x10^6/uL (4.30-5.70) Hemoglobin 9.4 g/dL (13.0-17.5) Hematocrit 29.8 % (39.0-53.0) Mean Corpuscular Volume 76 fL (79-100) Mean Corpuscular Hemoglobin 24 pg (25-35) Mean Corpuscular Hemoglobin Concent 32 g/dL (31-37) Red Cell Distribution Width 16.1 % (11.5-14.5) Platelet Count 435 x10^3/uL (140-400) Neutrophils (%) (Auto) 78 % (31-73) Lymphocytes (%) (Auto) 16 % (24-48) Monocytes (%) (Auto) 4 % (0-9) Eosinophils (%) (Auto) 0 % (0-3) Basophils (%) (Auto) 1 % (0-3) Neutrophils # (Auto) 7.2 x10^3/uL (1.8-7.7) Lymphocytes # (Auto) 1.5 x10^3/uL (1.0-4.8) Monocytes # (Auto) 0.4 x10^3/uL (0.0-1.1) Eosinophils # (Auto) 0.0 x10^3/uL (0.0-0.7) Basophils # (Auto) 0.1 x10^3/uL (0.0-0.2) Sodium Level 141 mmol/L (136-145) Potassium Level 4.7 mmol/L (3.5-5.1) Chloride Level 106 mmol/L (98-107) Carbon Dioxide Level 27 mmol/L (21-32) Anion Gap 8 (6-14) Blood Urea Nitrogen 23 mg/dL (8-26) Creatinine 2.2 mg/dL (0.7-1.3) Estimated GFR (Cockcroft-Gault) 36.1 BUN/Creatinine Ratio 10 (6-20) Glucose Level 234 mg/dL (70-99) Calcium Level 8.2 mg/dL (8.5-10.1) Total Bilirubin 0.3 mg/dL (0.2-1.0) Aspartate Amino Transf (AST/SGOT) 34 U/L (15-37) Alanine Aminotransferase (ALT/SGPT) 15 U/L (16-63) Alkaline Phosphatase 104 U/L (46-116) Total Protein 5.6 g/dL (6.4-8.2) Albumin 2.1 g/dL (3.4-5.0) Albumin/Globulin Ratio 0.6 (1.0-1.7) Lipase 62 U/L (73-393) Glucose (Fingerstick) 168 mg/dL (70-99) Images Images CT abdomen/pelvis IMPRESSION: 1. Findings concerning for malignancy at the hepatic flexure of the colon. The more proximal ascending colon is dilated with adjacent fat stranding which may relate to colitis. Mass may also be causing obstruction at this site. 2. Numerous vague hypoattenuating masses in the liver concerning for metastatic disease. 3. Numerous pulmonary nodules again concerning for metastatic disease. Assessment/Plan Assessment/Plan Abdominal pain, weight loss, anemia; CT worrisome for colon tumor with liver/pulmonary mets. GI consulted, expect colonoscopy with biopsy soon, Oncology consulted as well. We will follow. JOAQUÍN ZAMBRANO MD Sep 12, 2020 10:19
[2020-09-12 11:00] VITALS: BP 109/63
--- NOTE | 2020-09-12 12:54 | PDOC2 ---
GI CONSULT Date of Service: DATE: 09/12/20 TIME: 12:43 Reason For Consult: Anemia/abnormal CT HPI: HPI: 69 y/o male with 5-month h/o abdominal pain "all over", maybe worse mid-abdomen. No N, V. Presented to ER where CT done revealing likely hepatic flexure mass obstructing (at least partially) ascending colon and possible liver lesions. We were asked to see. Has noted generally softer, narrower stools. No overt blood in stool nor melena. Eating may worsen his symptoms, so eating much less and meaningful weight loss. No prior endoscopy. Denies heartburn, dysphagia, PUD, GB, liver or pancreatic history. No tobacco use. Rare alcohol. Also noted with microcytic anemia c/w iron deficiency. PMH: PMH: DM2, HTN. No surgeries. Social History: Smoke: No ALCOHOL: rare Drugs: None ROS: GEN: Denies fevers, chills, sweats HEENT: Denies blurred vision, sore throat CV: Denies chest pain RESP: Denies shortness of air, cough GI: Per HPI : Denies hematuria, dysuria ENDO: Weight loss NEURO: Denies confusion, dizziness MSK: Denies weakness, joint pain/swelling SKIN: Denies jaundice, pruritus Vitals: Vitals: Vital Signs Date Time Temp Pulse Resp B/P (MAP) Pulse Ox O2 Delivery O2 Flow Rate FiO2 09/12/20 11:00 98.1 86 19 109/63 (78) 100 Room Air 98.1 Labs: Labs: Laboratory Tests Test 09/11/20 17:45 09/11/20 18:24 09/12/20 08:50 09/12/20 11:17 White Blood Count 9.2 x10^3/uL (4.0-11.0) Red Blood Count 3.93 x10^6/uL (4.30-5.70) Hemoglobin 9.4 g/dL (13.0-17.5) Hematocrit 29.8 % (39.0-53.0) Mean Corpuscular Volume 76 fL (79-100) Mean Corpuscular Hemoglobin 24 pg (25-35) Mean Corpuscular Hemoglobin Concent 32 g/dL (31-37) Red Cell Distribution Width 16.1 % (11.5-14.5) Platelet Count 435 x10^3/uL (140-400) Neutrophils (%) (Auto) 78 % (31-73) Lymphocytes (%) (Auto) 16 % (24-48) Monocytes (%) (Auto) 4 % (0-9) Eosinophils (%) (Auto) 0 % (0-3) Basophils (%) (Auto) 1 % (0-3) Neutrophils # (Auto) 7.2 x10^3/uL (1.8-7.7) Lymphocytes # (Auto) 1.5 x10^3/uL (1.0-4.8) Monocytes # (Auto) 0.4 x10^3/uL (0.0-1.1) Eosinophils # (Auto) 0.0 x10^3/uL (0.0-0.7) Basophils # (Auto) 0.1 x10^3/uL (0.0-0.2) Sodium Level 141 mmol/L (136-145) Potassium Level 4.7 mmol/L (3.5-5.1) Chloride Level 106 mmol/L (98-107) Carbon Dioxide Level 27 mmol/L (21-32) Anion Gap 8 (6-14) Blood Urea Nitrogen 23 mg/dL (8-26) Creatinine 2.2 mg/dL (0.7-1.3) Estimated GFR (Cockcroft-Gault) 36.1 BUN/Creatinine Ratio 10 (6-20) Glucose Level 234 mg/dL (70-99) Calcium Level 8.2 mg/dL (8.5-10.1) Total Bilirubin 0.3 mg/dL (0.2-1.0) Aspartate Amino Transf (AST/SGOT) 34 U/L (15-37) Alanine Aminotransferase (ALT/SGPT) 15 U/L (16-63) Alkaline Phosphatase 104 U/L (46-116) Total Protein 5.6 g/dL (6.4-8.2) Albumin 2.1 g/dL (3.4-5.0) Albumin/Globulin Ratio 0.6 (1.0-1.7) Lipase 62 U/L (73-393) Glucose (Fingerstick) 168 mg/dL (70-99) 128 mg/dL (70-99) LFT's normal. Allergies: Coded Allergies: No Known Drug Allergies (Unverified , 09/11/20) Medications: Current Medications Medications (Trade) Dose Ordered Sig/Syeda Route PRN Reason Start Time Stop Time Status Last Admin Dose Admin Sodium Chloride 1,000 ml @ 1,000 mls/hr 1X ONCE IV 09/11/20 17:45 09/11/20 18:44 DC 09/11/20 17:47 Morphine Sulfate (Morphine Sulfate) 5 mg 1X ONCE IV 09/11/20 17:45 09/11/20 17:46 DC 09/11/20 17:48 Iohexol (Omnipaque 240 Mg/ml) 30 ml 1X ONCE PO 09/11/20 19:00 09/11/20 19:01 DC 09/11/20 17:50 Morphine Sulfate (Morphine Sulfate) 2 mg PRN Q2HR PRN IV PAIN 09/11/20 20:15 09/12/20 20:14 09/11/20 22:03 Insulin Human Lispro (HumaLOG) 0-9 UNITS TIDWMEALS SQ 09/12/20 08:00 09/12/20 09:01 Enoxaparin Sodium (Lovenox 40mg Syringe) 40 mg Q24H SQ 09/12/20 09:00 09/12/20 08:57 Imaging: Imaging: On CT: IMPRESSION: 1. Findings concerning for malignancy at the hepatic flexure of the colon. The more proximal ascending colon is dilated with adjacent fat stranding which may relate to colitis. Mass may also be causing obstruction at this site. 2. Numerous vague hypoattenuating masses in the liver concerning for metastatic disease. 3. Numerous pulmonary nodules again concerning for metastatic disease. PE: GEN: NAD HEENT: Atraumatic, PERRLA LUNGS: CTAB HEART: RRR, no murmurs ABD: NABS, S/ND/vaguely tender, no masses EXTREMITY: No edema SKIN: No rashes, no jaundice NEURO/PSYCH: A & O 3 A/P: A/P: IMP: Presentation, imaging c/w tumor at hepatic flexure, perhaps with liver mets, likely partially obstructing. Likely adenoCa. REC: Since may be obstructed to a degree, SLOW prep. Colonoscopy pending response to prep. Check iron studies, CEA if not done. --other pending. Thanks. ANDREW MORA MD Sep 12, 2020 12:54
[2020-09-12] MEDS ORDERED: MAGNESIUM HYDROXIDE 2,400 MG/30 ML ORAL.SUSP. PO ONE (13:00)
--- NOTE | 2020-09-12 13:08 | PDOC ---
FOLLOW UP Oncology Note: Patient is a 69 year old male who has been admitted with weakness and abdominal pain. Lab evaluation has shown microcytic anemia and elevated creatinine(?NITESH/CKD). CT imaging has shown a colonic mass with multiple liver lesions. Pulmonary nodules were also noted on CT. Assessment: Suspected metastatic colon cancer Microcytic anemia, suspect iron deficiency anemia NITESH/CKD Recommendations: -Recommend IR consult for CT guided bx of pulmonary or hepatic metastatic disease -Will request CT chest to evaluate pulmonary nodules -Check iron studies, B12 -Check baseline CEA -Will likely require port placement given likely diagnosis of colon cancer -Full consult to follow. Please call [phone] with any questions. ANGELIKA COTE MD Sep 12, 2020 13:08
[2020-09-12 15:00] VITALS: BP 122/66
[2020-09-12 19:00] VITALS: BP 104/62
[2020-09-12] MEDS: HYDROcodone/APAP 5/325MG 1 TAB TABLET PO PRN (20:07)
[2020-09-12] MEDS: INSULIN GLARGINE SYRINGE. SQ SCH (20:07)
[2020-09-12 23:15] VITALS: BP 114/62
--- NOTE | 2020-09-13 00:31 | RAD ---
PQRS Compliance Statement: One or more of the following individualized dose reduction techniques were utilized for this examinat ion: 1. Automated exposure control 2. Adjustment of the mA and/or kV according to patient size 3. Use of iterative reconstruction technique CT THORAX WO 09/12/2020 3:10 PM Indication: Colon cancer staging COMPARISON: None available. TECHNIQUE: Multiple axial CT images of the chest were obtained with intravenous contrast. Coronal and sagittal reformats are provided. FINDINGS: Thyroid gland is normal in appearance. Partly calcified right paratracheal lymph node identified serjio uring 6 mm. Right hilar lymph node measures 11 mm (series 3, image 35). Evaluation of hilar lymphaden opathy is limited by lack of intravenous contrast. Heart size within normal limits. There is no peric ardial effusion. Thoracic aorta is normal in course and caliber. There is a lipoma along the anterior right chest wall measuring 6.2 x 1.6 (series 3, image 38). There are scattered solid noncalcified pulmonary nodules throughout the lungs suspicious for pulmonar y metastatic disease. In the right lower lobe there is a 10 mm solid noncalcified pulmonary nodule (s eries 3, image 41). In the right lower lobe there is a 12 mm solid noncalcified pulmonary masses 47). In the superior segment right lower lobe there is a spiculated mass measuring 2.1 x 1.2 cm (series 3 , image 32). Bandlike opacity in the left lingula may represent subsegmental atelectasis or scarring. There are additional areas of bandlike thickening. Tree-in-bud nodular airspace disease in the left upper lobe and lingula which may represent pneumonitis of infectious/inflammatory etiology. Subpleura l solid noncalcified pulmonary nodule in the left upper lobe measures 9 mm (series 3, image 17). No p leural effusions, pulmonary vascular congestion. Multifocal hypoattenuating lesions within the hepatic parenchyma favor hepatic metastatic disease, in completely characterized on this examination. Small volume abdominal ascites. Limited evaluation of t he upper abdomen (contrast. No lytic lesions are identified involving the thorax. Sclerotic density i s identified involving the central T3 vertebral level measuring 9 mm, indeterminate. IMPRESSION: 1. Multifocal solid noncalcified pulmonary nodules within the lung parenchyma suspicious for pulmonar y metastatic disease. 2. Bandlike thickening with tree-in-bud nodular airspace disease identified in the left upper lobe an d lingula which may represent a bronchiolitis of infectious/inflammatory etiology. 3 month follow-up chest CT could be of benefit to ensure resolution. 3. Right hilar lymph node is borderline enlarged, suspicious for rachel metastatic disease. Further ch aracterization with PET/CT could be of benefit. 4. Multifocal hypoattenuating lesions within the hepatic parenchyma. Hepatic metastatic disease. Smal l volume abdominal ascites. 5. 9 mm indeterminate sclerotic density involving T3 vertebral level. No destructive osseous componen t is identified. Electronically signed by: Maria Ines Rich MD (09/13/2020 12:28 AM) [facility]
[2020-09-13 03:00] VITALS: BP 128/63
[2020-09-13 07:00] VITALS: BP 120/66
[2020-09-13] MEDS: INSULIN LISPRO 300 UNITS/3 ML VIAL. SQ SCH ×3 (08:00→17:00)
[2020-09-13] MEDS: ENOXAPARIN 40 MG/0.4 ML SYRINGE. SQ SCH (09:00)
--- NOTE | 2020-09-13 09:34 | PDOC ---
Date of Service: DATE: 09/13/20 TIME: : Subjective: Subjective: No stools since 09/09. Abdomen feels uneasy but pain has improved since admission. Tolerating clears. Passing flatus. Says he's waiting to have a colonoscopy. Objective: Vital Signs: Vital Signs Date Time Temp Pulse Resp B/P (MAP) Pulse Ox O2 Delivery O2 Flow Rate FiO2 09/13/20 07:00 98.2 74 16 120/66 (84) 96 Room Air 98.2 Labs: Laboratory Tests Test 09/12/20 11:17 09/12/20 14:00 09/12/20 16:29 09/12/20 20:05 Glucose (Fingerstick) 128 mg/dL 96 mg/dL 72 mg/dL Iron Level 7 ug/dL Total Iron Binding Capacity 150 ug/dL Iron Saturation 5 % Ferritin 63 ng/mL Test 09/13/20 07:11 Glucose (Fingerstick) 74 mg/dL PE: GEN: NAD LUNGS: CTAB HEART: RRR ABD: quiet BS - more to left, soft, non-tender NEURO/PSYCH: A & O 3 A/P: Abd pain - improved PUJA/ACD, ?NITESH/CKD Abnormal CT - concern for malignancy at hepatic flexure, ?liver mets -- D/w Dr. Villagomez - will attempt prep for colonoscopy tomorrow. D/w pt and nurse - stop prep if any pain, n/v. R/o COVID per protocol. CEA pending. Justicifation of Admission Dx: Justifications for Admission: Justification of Admission Dx: Yes JEISON CONNOR Sep 13, 2020 09:34
--- NOTE | 2020-09-13 10:12 | PDOC ---
[facility] 09/13/20 1012: SURGICAL PROGRESS NOTE DATE: 09/13/20 TIME: 10:10 Subjective taking some clears some nausea Vital Signs Vital Signs Date Time Temp Pulse Resp B/P (MAP) Pulse Ox O2 Delivery O2 Flow Rate FiO2 09/13/20 07:00 98.2 74 16 120/66 (84) 96 Room Air 98.2 I&O Intake and Output 09/13/20 07:00 Intake Total 940 ml Balance 940 ml Intake Oral 940 ml # Voids 5 General: Alert, Oriented X3, Cooperative Abdomen: Soft, No tenderness Labs Laboratory Tests Test 09/11/20 17:45 09/11/20 18:24 09/12/20 08:50 09/12/20 11:17 White Blood Count 9.2 x10^3/uL (4.0-11.0) Red Blood Count 3.93 x10^6/uL (4.30-5.70) Hemoglobin 9.4 g/dL (13.0-17.5) Hematocrit 29.8 % (39.0-53.0) Mean Corpuscular Volume 76 fL (79-100) Mean Corpuscular Hemoglobin 24 pg (25-35) Mean Corpuscular Hemoglobin Concent 32 g/dL (31-37) Red Cell Distribution Width 16.1 % (11.5-14.5) Platelet Count 435 x10^3/uL (140-400) Neutrophils (%) (Auto) 78 % (31-73) Lymphocytes (%) (Auto) 16 % (24-48) Monocytes (%) (Auto) 4 % (0-9) Eosinophils (%) (Auto) 0 % (0-3) Basophils (%) (Auto) 1 % (0-3) Neutrophils # (Auto) 7.2 x10^3/uL (1.8-7.7) Lymphocytes # (Auto) 1.5 x10^3/uL (1.0-4.8) Monocytes # (Auto) 0.4 x10^3/uL (0.0-1.1) Eosinophils # (Auto) 0.0 x10^3/uL (0.0-0.7) Basophils # (Auto) 0.1 x10^3/uL (0.0-0.2) Sodium Level 141 mmol/L (136-145) Potassium Level 4.7 mmol/L (3.5-5.1) Chloride Level 106 mmol/L (98-107) Carbon Dioxide Level 27 mmol/L (21-32) Anion Gap 8 (6-14) Blood Urea Nitrogen 23 mg/dL (8-26) Creatinine 2.2 mg/dL (0.7-1.3) Estimated GFR (Cockcroft-Gault) 36.1 BUN/Creatinine Ratio 10 (6-20) Glucose Level 234 mg/dL (70-99) Calcium Level 8.2 mg/dL (8.5-10.1) Total Bilirubin 0.3 mg/dL (0.2-1.0) Aspartate Amino Transf (AST/SGOT) 34 U/L (15-37) Alanine Aminotransferase (ALT/SGPT) 15 U/L (16-63) Alkaline Phosphatase 104 U/L (46-116) Total Protein 5.6 g/dL (6.4-8.2) Albumin 2.1 g/dL (3.4-5.0) Albumin/Globulin Ratio 0.6 (1.0-1.7) Lipase 62 U/L (73-393) Glucose (Fingerstick) 168 mg/dL (70-99) 128 mg/dL (70-99) Test 09/12/20 14:00 09/12/20 16:29 09/12/20 20:05 09/13/20 07:11 Iron Level 7 ug/dL (65-175) Total Iron Binding Capacity 150 ug/dL (250-450) Iron Saturation 5 % (15-34) Ferritin 63 ng/mL (26-388) Glucose (Fingerstick) 96 mg/dL (70-99) 72 mg/dL (70-99) 74 mg/dL (70-99) Laboratory Tests Test 09/12/20 11:17 09/12/20 14:00 09/12/20 16:29 09/12/20 20:05 Glucose (Fingerstick) 128 mg/dL (70-99) 96 mg/dL (70-99) 72 mg/dL (70-99) Iron Level 7 ug/dL (65-175) Total Iron Binding Capacity 150 ug/dL (250-450) Iron Saturation 5 % (15-34) Ferritin 63 ng/mL (26-388) Test 09/13/20 07:11 Glucose (Fingerstick) 74 mg/dL (70-99) Problem List Problems Medical Problems: (1) Abdominal pain Status: Acute (2) Cancer of ascending colon metastatic to intra-abdominal lymph node Status: Acute Assessment/Plan plans for colonoscopy tomorrow will follow Justicifation of Admission Dx: Justifications for Admission: Justification of Admission Dx: Yes JOAQUÍN ZAMBRANO MD 09/13/20 1359: SURGICAL PROGRESS NOTE Assessment/Plan Agree with above [facility] Sep 13, 2020 10:12 JOAQUÍN ZAMBRANO MD Sep 13, 2020 13:59
[2020-09-13] MEDS ORDERED: PEG 3350/NA SULF,BICARB,CL/KCL 4,000 ML SOLUTION. PO ONE (11:00)
--- NOTE | 2020-09-13 11:05 | PDOC ---
[employer] PROGRESS NOTE Date of Service DOS: DATE: 09/13/20 TIME: 11:04 Chief Complaint Chief Complaint Colon cancer Anemia NITESH Vasomotor nephropathy DM2 with hyperglycemia Severe malnutrition History of Present Illness History of Present Illness Patient is 69-year-old male with past medical history DM2, who presents to the ER with complaints of worsening diffuse abdominal pain for the past 5 months. He reports aching/gnawing pain, 8/10. He has associated decreased appetite, intermittent constipation, and intermittent diarrhea. He notes roughly 30 pound unintentional weight loss over this time. He denies any specific aggravating or alleviating symptoms. He did have an appointment earlier this month for CT abdomen that he missed, and was rescheduled for September. He came to the ED due to worsening of his symptoms. CT abdomen pelvis obtained on admission showed findings concerning for malignancy of the colon. Will admit patient for further medical management. 09/13 Patient seen and examined Discussed with RN Discussed with case management Patient is comfortable and was resting when we seen him Vitals/I&O Vitals/I&O: Vital Signs Date Time Temp Pulse Resp B/P (MAP) Pulse Ox O2 Delivery O2 Flow Rate FiO2 09/13/20 07:00 98.2 74 16 120/66 (84) 96 Room Air 98.2 I & O 09/12/20 09/12/20 09/13/20 15:00 23:00 07:00 Intake Total 200 ml 740 ml Balance 200 ml 740 ml Physical Exam General: Alert, Oriented X3, Cooperative Heart: Regular rate, No murmurs Lungs: Clear Abdomen: Soft, No tenderness Extremities: No clubbing, No cyanosis Skin: No rashes, No breakdown Labs Labs: Laboratory Tests Test 09/12/20 11:17 09/12/20 14:00 09/12/20 16:29 09/12/20 20:05 Glucose (Fingerstick) 128 mg/dL (70-99) 96 mg/dL (70-99) 72 mg/dL (70-99) Iron Level 7 ug/dL (65-175) Total Iron Binding Capacity 150 ug/dL (250-450) Iron Saturation 5 % (15-34) Ferritin 63 ng/mL (26-388) Test 09/13/20 07:11 Glucose (Fingerstick) 74 mg/dL (70-99) Review of Systems Review of Systems: Denies rashes or itching Denies headache, numbness or changes in vision Assessment and Plan Assessmemt and Plan Problems Medical Problems: (1) Abdominal pain Status: Acute (2) Cancer of ascending colon metastatic to intra-abdominal lymph node Status: Acute Assessment: Colon cancer Anemia NITESH Vasomotor nephropathy DM2 with hyperglycemia Severe malnutrition Plan: Colonoscopy at 1:00 PM tomorrow NPO after midnight Start procalamine 75 cc/hr Full code Home meds DVT prophylaxis Trend labs Comment Review of Relevant I have reviewed the following items neil (where applicable) has been applied. Medications: Current Medications Medications (Trade) Dose Ordered Sig/Syeda Route PRN Reason Start Time Stop Time Status Last Admin Dose Admin Magnesium Hydroxide (Milk Of Magnesia) 2,400 mg 1X ONCE PO 09/12/20 13:00 09/12/20 13:01 DC 09/12/20 13:03 Justifications for Admission Other Justification GI malignancy, anemia JOON LEBRON K III DO Sep 13, 2020 11:05
[2020-09-13 11:17] VITALS: BP 116/68
--- NOTE | 2020-09-13 13:06 | NUR ---
SW following. Discussed with RN, pt from home alone (reports having no friends or family), room air, clear liquid diet, ad cintia. Pt scheduled for colonoscopy tomorrow (09/14/2020). SW will continue to follow.
--- NOTE | 2020-09-13 13:11 | PDOC2 ---
CONSULT Date of Consult Date of Consult DATE: 09/13/20 TIME: 13:04 Reason for Consult Reason for Consult: Suspected metastatic colon cancer Referring Physician Referring Physician: Dr. Guerrero Identification/Chief Complaint Chief Complaint Abdominal pain Source Source: Chart review, Patient History of Present Illness Reason for Visit: Juan Daniel Harris is a 69-year-old -Citizen Of [place] male who has been admitted to the hospital for further evaluation and management of abdominal pain. The patient reports worsening pain in the lower abdomen for the past 3 to 4 months. He reported associated decreased appetite and constipation as well as a 30 pound weight loss for the past 5 months he was seen in [facility] emergency room on 09/05. CT imaging was obtained of the abdomen and showed hepatic flexure mass in the colon as well as multiple hypodense nodules in the liver and pulmonary nodules indicative of metastatic colonic malignancy. He has been seen by GI service and colonoscopy is planned for today. Oncology consultation has been sought due to suspected metastatic colon cancer. Patient reports no additional concerns at this time. Past Surgical History Past Surgical History: Other (Leg surgery) Social History No ALCOHOL: rare Drugs: None Current Problem List Problem List Problems Medical Problems: (1) Abdominal pain Status: Acute (2) Cancer of ascending colon metastatic to intra-abdominal lymph node Status: Acute Current Medications Current Medications Current Medications Sodium Chloride 1,000 ml @ 1,000 mls/hr 1X ONCE IV Last administered on 09/11/20at 17:47; Start 09/11/20 at 17:45; Stop 09/11/20 at 18:44; Status DC Morphine Sulfate (Morphine Sulfate) 5 mg 1X ONCE IV Last administered on 09/11/20at 17:48; Start 09/11/20 at 17:45; Stop 09/11/20 at 17:46; Status DC Iohexol (Omnipaque 240 Mg/ml) 30 ml 1X ONCE PO Last administered on 09/11/20at 17:50; Start 09/11/20 at 19:00; Stop 09/11/20 at 19:01; Status DC Info (CONTRAST GIVEN -- Rx MONITORING) 1 each PRN DAILY PRN MC SEE COMMENTS; Start 09/11/20 at 19:00; Stop 09/13/20 at 18:59 Ondansetron HCl (Zofran) 4 mg PRN Q8HRS PRN IV NAUSEA/VOMITING; Start 09/11/20 at 20:15; Stop 09/12/20 at 15:38; Status DC Morphine Sulfate (Morphine Sulfate) 2 mg PRN Q2HR PRN IV PAIN Last administered on 09/11/20at 22:03; Start 09/11/20 at 20:15; Stop 09/12/20 at 20:14; Status DC Insulin Glargine (Lantus Syringe) 10 unit QHS SQ ; Start 09/12/20 at 21:00 Insulin Human Lispro (HumaLOG) 0-9 UNITS TIDWMEALS SQ Last administered on 09/12/20at 09:01; Start 09/12/20 at 08:00 Dextrose (Dextrose 50%-Water Syringe) 12.5 gm PRN Q15MIN PRN IV SEE COMMENTS; Start 09/12/20 at 07:15 Tramadol HCl (Ultram) 50 mg PRN Q6HRS PRN PO PAIN MILD 2ND CHOICE; Start 09/12/20 at 07:15 Fentanyl Citrate (Fentanyl 2ml Vial) 50 mcg PRN Q2HR PRN IVP PAIN SEVERE; Start 09/12/20 at 07:15 Ondansetron HCl (Zofran) 4 mg PRN Q6HRS PRN IVP NAUSEA/VOMITING; Start 09/12/20 at 07:15 Al Hydroxide/Mg Hydroxide (Mylanta Plus Xs) 30 ml PRN Q3HRS PRN PO HEARTBURN / GAS; Start 09/12/20 at 07:15 Calcium Carbonate/ Glycine (Tums) 500 mg PRN Q3HRS PRN PO UPSET STOMACH; Start 09/12/20 at 07:15 Zolpidem Tartrate (Ambien) 5 mg PRN QHS PRN PO INSOMNIA, MAY REPEAT IN 1HR; Start 09/12/20 at 07:15 Acetaminophen/ Hydrocodone Bitart (Lortab 5/325) 1 tab PRN Q4HRS PRN PO MILD PAIN 1-3 1ST CHOICE; Start 09/12/20 at 07:15 Acetaminophen/ Hydrocodone Bitart (Lortab 5/325) 2 tab PRN Q4HRS PRN PO MODERATE PAIN, SEVERE PAIN Last administered on 09/12/20at 20:07; Start 09/12/20 at 07:15 Acetaminophen (Tylenol) 650 mg PRN Q6HRS PRN PO Headaches, Temp > 101.5F; Start 09/12/20 at 07:15 Ibuprofen (Motrin) 400 mg PRN Q6HRS PRN PO INFLAMMATION; Start 09/12/20 at 07:15 Magnesium Hydroxide (Milk Of Magnesia) 2,400 mg PRN Q12HR PRN PO CONSTIPATION; Start 09/12/20 at 07:15 Bisacodyl (Dulcolax Supp) 10 mg PRN DAILY PRN RI CONSTIPATION; Start 09/12/20 at 07:15 Enoxaparin Sodium (Lovenox 40mg Syringe) 40 mg Q24H SQ Last administered on 09/12/20at 08:57; Start 09/12/20 at 09:00 Magnesium Hydroxide (Milk Of Magnesia) 2,400 mg 1X ONCE PO Last administered on 09/12/20at 13:03; Start 09/12/20 at 13:00; Stop 09/12/20 at 13:01; Status DC Sodium Cl/Sod Bicarb/Potass Cl/ PEG (Golytely) 4,000 ml 1X ONCE PO ; Start 09/13/20 at 11:00; Stop 09/13/20 at 11:01; Status DC Amino Acids/ Glycerin/ Electrolytes 1,000 ml @ 75 mls/hr [id number] IV ; Start 09/13/20 at 11:15 Active Scripts Active Reported Glipizide 5 Mg Tablet 1 Tab PO BID Lisinopril 5 Mg Tablet 5 Mg PO BID Allergies Allergies: Coded Allergies: No Known Drug Allergies (Unverified , 09/11/20) ROS General: YES: Fatigue, Malaise PSYCHOLOGICAL ROS: No: Hallucinations, Hostility Eyes: No Eye Pain, No Itchy Eyes HEENT: No: Oral lesions, Sinus pain ALLERGY AND IMMUNOLOGY: No: Nasal Congestion, Post Nasal Drip Hematological and Lymphatic: No: Brusing, Night Sweats ENDOCRINE: YES: Malaise/lethargy; No: Mood Swings Respiratory: No: Cough, Hemoptysis Cardiovascular: No Chest Pain, No Palpitations Gastrointestinal: Yes Nausea, Yes Abdominal Pain, Yes Diarrhea, Yes Constipation, Yes Hematochezia; No Vomiting Genitourinary: No Dysuria, No Frequency Musculoskeletal: No Gait Disturbance, No Joint Pain Neurological: No Behavorial Changes, No Bowel/Bladder ControlChng Skin: No Dry Skin, No Eczema Physical Exam General: Alert, Oriented X3 HEENT: Atraumatic Lungs: Clear to auscultation Heart: Regular rate, Normal S1 Abdomen: Normal bowel sounds, Soft Extremities: No clubbing Skin: No rashes Neuro: Normal speech Psych/Mental Status: Mental status NL MUSCULOSKELETAL: No swelling Vitals VITALS Vital Signs Date Time Temp Pulse Resp B/P (MAP) Pulse Ox O2 Delivery O2 Flow Rate FiO2 09/13/20 11:17 98.8 75 16 116/68 (84) 100 Room Air 98.8 Labs Labs Laboratory Tests Test 09/11/20 17:45 09/11/20 18:24 09/12/20 08:50 09/12/20 11:17 White Blood Count 9.2 x10^3/uL (4.0-11.0) Red Blood Count 3.93 x10^6/uL (4.30-5.70) Hemoglobin 9.4 g/dL (13.0-17.5) Hematocrit 29.8 % (39.0-53.0) Mean Corpuscular Volume 76 fL (79-100) Mean Corpuscular Hemoglobin 24 pg (25-35) Mean Corpuscular Hemoglobin Concent 32 g/dL (31-37) Red Cell Distribution Width 16.1 % (11.5-14.5) Platelet Count 435 x10^3/uL (140-400) Neutrophils (%) (Auto) 78 % (31-73) Lymphocytes (%) (Auto) 16 % (24-48) Monocytes (%) (Auto) 4 % (0-9) Eosinophils (%) (Auto) 0 % (0-3) Basophils (%) (Auto) 1 % (0-3) Neutrophils # (Auto) 7.2 x10^3/uL (1.8-7.7) Lymphocytes # (Auto) 1.5 x10^3/uL (1.0-4.8) Monocytes # (Auto) 0.4 x10^3/uL (0.0-1.1) Eosinophils # (Auto) 0.0 x10^3/uL (0.0-0.7) Basophils # (Auto) 0.1 x10^3/uL (0.0-0.2) Sodium Level 141 mmol/L (136-145) Potassium Level 4.7 mmol/L (3.5-5.1) Chloride Level 106 mmol/L (98-107) Carbon Dioxide Level 27 mmol/L (21-32) Anion Gap 8 (6-14) Blood Urea Nitrogen 23 mg/dL (8-26) Creatinine 2.2 mg/dL (0.7-1.3) Estimated GFR (Cockcroft-Gault) 36.1 BUN/Creatinine Ratio 10 (6-20) Glucose Level 234 mg/dL (70-99) Calcium Level 8.2 mg/dL (8.5-10.1) Total Bilirubin 0.3 mg/dL (0.2-1.0) Aspartate Amino Transf (AST/SGOT) 34 U/L (15-37) Alanine Aminotransferase (ALT/SGPT) 15 U/L (16-63) Alkaline Phosphatase 104 U/L (46-116) Total Protein 5.6 g/dL (6.4-8.2) Albumin 2.1 g/dL (3.4-5.0) Albumin/Globulin Ratio 0.6 (1.0-1.7) Lipase 62 U/L (73-393) Glucose (Fingerstick) 168 mg/dL (70-99) 128 mg/dL (70-99) Test 09/12/20 14:00 09/12/20 16:29 09/12/20 20:05 09/13/20 07:11 Iron Level 7 ug/dL (65-175) Total Iron Binding Capacity 150 ug/dL (250-450) Iron Saturation 5 % (15-34) Ferritin 63 ng/mL (26-388) Vitamin B12 Level 916 pg/mL (247-911) Glucose (Fingerstick) 96 mg/dL (70-99) 72 mg/dL (70-99) 74 mg/dL (70-99) Test 09/13/20 10:34 09/13/20 11:46 Glucose (Fingerstick) 80 mg/dL (70-99) SARS-CoV-2 Antigen (Rapid) Negative (NEGATIVE) Laboratory Tests Test 09/12/20 14:00 09/12/20 16:29 09/12/20 20:05 09/13/20 07:11 Iron Level 7 ug/dL (65-175) Total Iron Binding Capacity 150 ug/dL (250-450) Iron Saturation 5 % (15-34) Ferritin 63 ng/mL (26-388) Vitamin B12 Level 916 pg/mL (247-911) Glucose (Fingerstick) 96 mg/dL (70-99) 72 mg/dL (70-99) 74 mg/dL (70-99) Test 09/13/20 10:34 09/13/20 11:46 Glucose (Fingerstick) 80 mg/dL (70-99) SARS-CoV-2 Antigen (Rapid) Negative (NEGATIVE) Assessment/Plan Assessment/Plan Assessment: Suspected metastatic colon cancer Iron deficiency anemia Abdominal pain, secondary to colonic malignancy Elevated creatinine-NITESH/CKD Recommendations: -Recommended and requested CT chest. These results were reviewed with the patient today. -Agree with colonoscopy and biopsy. Can plan CT-guided biopsy of pulmonary or liver metastases if colonoscopy biopsy is inconclusive -I discussed the evaluation and management of newly diagnosed metastatic colon cancer with the patient. -We discussed the goal of therapy in this setting is disease control, palliation of symptoms and prolonging life. We discussed that any therapy is unlikely to be curative in the setting -Plan on obtaining BRAF, JALEN, and MSI testing to plan systemic therapy -Follow-up in 1 week in oncology clinic to start chemotherapy. -Rest per Dr. Cesar Cote MD Medical Oncology/Hematology Ph: [phone] ANGELIKA COTE MD Sep 13, 2020 13:11
[2020-09-13 14:44] VITALS: BP 143/78
--- NOTE | 2020-09-13 16:58 | NUR ---
Patient has a low blood sugar of 56 but patient is alert and oriented at this time so two apple juices was given and patient is having clear liquid dinner. Will continue monitor and recheck patient blood sugar.
[2020-09-13] MEDS: AMINO AC 3%/ELECTROLYTE/GLYCER 1,000 ML IV SCH (18:58)
[2020-09-13 19:00] VITALS: BP 143/80
[2020-09-13] MEDS: HYDROcodone/APAP 5/325MG 1 TAB TABLET PO PRN (19:49)
[2020-09-13] MEDS: INSULIN GLARGINE SYRINGE. SQ SCH (19:50)
[2020-09-13 22:08] LABS: HEMOGLOBIN A1C 7.9 % (4.8-5.6)
[2020-09-13 23:00] VITALS: BP 143/81
--- NOTE | 2020-09-14 | NUR ---
Patient unable to finish GoLYTELY prep. Patient reports clear stools with approximately 2 liters of solution consumed. Patient now NPO.
[2020-09-14] MEDS: AMINO AC 3%/ELECTROLYTE/GLYCER 1,000 ML IV SCH ×2 (00:35→08:09)
[2020-09-14 03:00] VITALS: BP 127/69
[2020-09-14 07:00] VITALS: BP 139/68
[2020-09-14] MEDS: INSULIN LISPRO 300 UNITS/3 ML VIAL. SQ SCH ×3 (07:59→17:00)
[2020-09-14] MEDS: ENOXAPARIN 40 MG/0.4 ML SYRINGE. SQ SCH (08:09)
[2020-09-14 08:15] LABS: BASO % 0 % (0-3); EOS # 0.1 x10^3/uL (0.0-0.7); EOS % 2 % (0-3); HEMATOCRIT 26.5 % (39.0-53.0); HEMOGLOBIN 8.3 g/dL (13.0-17.5); LYMPH # 1.7 x10^3/uL (1.0-4.8); LYMPH % 29 % (24-48); MEAN CORPUSCULAR HEMOGLOBIN 24 pg (25-35); MEAN CORPUSCULAR HGB CONC 31 g/dL (31-37); MEAN CORPUSCULAR VOLUME 76 fL (79-100); MONO # 0.4 x10^3/uL (0.0-1.1); MONO % 8 % (0-9); NEUT # 3.7 x10^3/uL (1.8-7.7); NEUT % 61 % (31-73); PLATELET COUNT 299 x10^3/uL (140-400)
[2020-09-14 08:28] LABS: CALCIUM 7.9 mg/dL (8.5-10.1); CREATININE 1.4 mg/dL (0.7-1.3); GFR 60.8; POTASSIUM 4.4 mmol/L (3.5-5.1)
--- NOTE | 2020-09-14 09:27 | NUR ---
SW following. Discussed with RN, pt from home alone, room air, NPO, ad cintia, rapid COVID-19 negative. Pt having a colonoscopy today at 1300. RN unsure of whether pt will be getting a port placed as well. SW will continue to follow.
--- NOTE | 2020-09-14 09:52 | PDOC ---
[employer] PROGRESS NOTE Date of Service DOS: DATE: 09/14/20 TIME: 09:47 Chief Complaint Chief Complaint Colon cancer Anemia NITESH Vasomotor nephropathy DM2 with hyperglycemia Severe malnutrition History of Present Illness History of Present Illness Patient is 69-year-old male with past medical history DM2, who presents to the ER with complaints of worsening diffuse abdominal pain for the past 5 months. He reports aching/gnawing pain, 8/10. He has associated decreased appetite, intermittent constipation, and intermittent diarrhea. He notes roughly 30 pound unintentional weight loss over this time. He denies any specific aggravating or alleviating symptoms. He did have an appointment earlier this month for CT abdomen that he missed, and was rescheduled for September. He came to the ED due to worsening of his symptoms. CT abdomen pelvis obtained on admission showed findings concerning for malignancy of the colon. Will admit patient for further medical management. 09/13 Patient seen and examined Discussed with RN Discussed with case management Patient is comfortable and was resting when we seen him 09/14 Patient seen and examined Chart reviewed Discussed with RN Discussed with case management Patient is comfortable Vitals/I&O Vitals/I&O: Vital Signs Date Time Temp Pulse Resp B/P (MAP) Pulse Ox O2 Delivery O2 Flow Rate FiO2 09/14/20 07:00 98.7 72 18 139/68 (91) 100 Room Air 98.7 I & O 09/13/20 09/13/20 09/14/20 15:00 23:00 07:00 Intake Total 200 ml 900 ml Balance 200 ml 900 ml Physical Exam General: Alert, Oriented X3 Heart: Regular rate, Normal S1 Lungs: Clear Abdomen: Normal bowel sounds, Soft Extremities: No clubbing, No cyanosis Skin: No rashes, Other (no itching) Labs Labs: Laboratory Tests Test 09/13/20 10:34 09/13/20 11:46 09/13/20 16:46 09/13/20 17:56 Glucose (Fingerstick) 80 mg/dL (70-99) 56 mg/dL (70-99) 132 mg/dL (70-99) SARS-CoV-2 Antigen (Rapid) Negative (NEGATIVE) Test 09/13/20 19:48 09/14/20 07:10 09/14/20 07:23 Glucose (Fingerstick) 138 mg/dL (70-99) 105 mg/dL (70-99) White Blood Count 6.0 x10^3/uL (4.0-11.0) Red Blood Count 3.50 x10^6/uL (4.30-5.70) Hemoglobin 8.3 g/dL (13.0-17.5) Hematocrit 26.5 % (39.0-53.0) Mean Corpuscular Volume 76 fL (79-100) Mean Corpuscular Hemoglobin 24 pg (25-35) Mean Corpuscular Hemoglobin Concent 31 g/dL (31-37) Red Cell Distribution Width 16.0 % (11.5-14.5) Platelet Count 299 x10^3/uL (140-400) Neutrophils (%) (Auto) 61 % (31-73) Lymphocytes (%) (Auto) 29 % (24-48) Monocytes (%) (Auto) 8 % (0-9) Eosinophils (%) (Auto) 2 % (0-3) Basophils (%) (Auto) 0 % (0-3) Neutrophils # (Auto) 3.7 x10^3/uL (1.8-7.7) Lymphocytes # (Auto) 1.7 x10^3/uL (1.0-4.8) Monocytes # (Auto) 0.4 x10^3/uL (0.0-1.1) Eosinophils # (Auto) 0.1 x10^3/uL (0.0-0.7) Basophils # (Auto) 0.0 x10^3/uL (0.0-0.2) Sodium Level 142 mmol/L (136-145) Potassium Level 4.4 mmol/L (3.5-5.1) Chloride Level 107 mmol/L (98-107) Carbon Dioxide Level 29 mmol/L (21-32) Anion Gap 6 (6-14) Blood Urea Nitrogen 19 mg/dL (8-26) Creatinine 1.4 mg/dL (0.7-1.3) Estimated GFR (Cockcroft-Gault) 60.8 Glucose Level 101 mg/dL (70-99) Calcium Level 7.9 mg/dL (8.5-10.1) Review of Systems Review of Systems: Denies rashes or itching Denies headache,changes in vision, or numbness. Assessment and Plan Assessmemt and Plan Problems Medical Problems: (1) Abdominal pain Status: Acute (2) Cancer of ascending colon metastatic to intra-abdominal lymph node Status: Acute Assessment: Colon cancer Anemia NITESH Vasomotor nephropathy DM2 with hyperglycemia Severe malnutrition Plan: Colonoscopy today DVT prophylaxis Full code Home meds Trend labs PT/OT Comment Review of Relevant I have reviewed the following items neil (where applicable) has been applied. Medications: Current Medications Medications (Trade) Dose Ordered Sig/Syeda Route PRN Reason Start Time Stop Time Status Last Admin Dose Admin Sodium Cl/Sod Bicarb/Potass Cl/ PEG (Golytely) 4,000 ml 1X ONCE PO 09/13/20 11:00 09/13/20 11:01 DC 09/13/20 14:49 Amino Acids/ Glycerin/ Electrolytes 1,000 ml @ 75 mls/hr [id number] IV 09/13/20 11:15 09/14/20 08:09 Justifications for Admission Other Justification GI malignancy, anemia CASTLE,NIAL K III DO Sep 14, 2020 09:52
[2020-09-14 11:00] VITALS: BP 173/62
[2020-09-14] MEDS ORDERED: PROPOFOL 10 MG/ML (20ML) VIAL. IV ONE (12:26)
[2020-09-14] MEDS: IV RINGERS,LACTATED 1000ML 1,000 ML IV SCH (12:36)
--- NOTE | 2020-09-14 13:12 | PDOC4 ---
PROCEDURE Procedure Colonoscopy with biopsies Indication: Imaging suggesting hepatic flexure tumor/PUJA Meds: per anesthesia Findings: ZULMA normal. --'Scope advanced to ~hepatic flexure. Obstructing tumor at this point; could not pass. Biopsied. Placed tattoo in proximal transverse, incorporating couple of polyps distal to tumor. Mucosa otherwise normal. Diverticulosis from sigmoid to transverse. 3 mm rectal polyp, biopsied off. Internal hemorrhoids on retroflex. Emmanuelle. well. 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 Diverticulosis. Colon polyps. Internal hemorrhoids. REC: Await path. Stay at clears for now. Await other pending data. ANDREW MORA MD Sep 14, 2020 13:11
--- NOTE | 2020-09-14 14:24 | PDOC ---
BÁRBARA COLEY DERRICK BOAT LEVERMAN 09/14/20 1424: SURGICAL PROGRESS NOTE DATE: 09/14/20 TIME: 14:23 Subjective not back from scope yet note reviewed--obstructing mass will review with Dr Mon Vital Signs Vital Signs Date Time Temp Pulse Resp B/P (MAP) Pulse Ox O2 Delivery O2 Flow Rate FiO2 09/14/20 13:50 97.8 77 20 169/81 99 Room Air 97.8 09/14/20 13:05 2 I&O Intake and Output 09/14/20 07:00 Intake Total 1100 ml Balance 1100 ml Intake Oral 1100 ml # Voids 4 # Bowel Movements 5 Labs Laboratory Tests Test 09/12/20 16:29 09/12/20 20:05 09/13/20 07:11 09/13/20 07:15 Glucose (Fingerstick) 96 mg/dL (70-99) 72 mg/dL (70-99) 74 mg/dL (70-99) Hemoglobin A1c 7.9 % (4.8-5.6) Test 09/13/20 10:34 09/13/20 11:46 09/13/20 16:46 09/13/20 17:56 Glucose (Fingerstick) 80 mg/dL (70-99) 56 mg/dL (70-99) 132 mg/dL (70-99) SARS-CoV-2 Antigen (Rapid) Negative (NEGATIVE) Test 09/13/20 19:48 09/14/20 07:10 09/14/20 07:23 09/14/20 10:36 Glucose (Fingerstick) 138 mg/dL (70-99) 105 mg/dL (70-99) 97 mg/dL (70-99) White Blood Count 6.0 x10^3/uL (4.0-11.0) Red Blood Count 3.50 x10^6/uL (4.30-5.70) Hemoglobin 8.3 g/dL (13.0-17.5) Hematocrit 26.5 % (39.0-53.0) Mean Corpuscular Volume 76 fL (79-100) Mean Corpuscular Hemoglobin 24 pg (25-35) Mean Corpuscular Hemoglobin Concent 31 g/dL (31-37) Red Cell Distribution Width 16.0 % (11.5-14.5) Platelet Count 299 x10^3/uL (140-400) Neutrophils (%) (Auto) 61 % (31-73) Lymphocytes (%) (Auto) 29 % (24-48) Monocytes (%) (Auto) 8 % (0-9) Eosinophils (%) (Auto) 2 % (0-3) Basophils (%) (Auto) 0 % (0-3) Neutrophils # (Auto) 3.7 x10^3/uL (1.8-7.7) Lymphocytes # (Auto) 1.7 x10^3/uL (1.0-4.8) Monocytes # (Auto) 0.4 x10^3/uL (0.0-1.1) Eosinophils # (Auto) 0.1 x10^3/uL (0.0-0.7) Basophils # (Auto) 0.0 x10^3/uL (0.0-0.2) Sodium Level 142 mmol/L (136-145) Potassium Level 4.4 mmol/L (3.5-5.1) Chloride Level 107 mmol/L (98-107) Carbon Dioxide Level 29 mmol/L (21-32) Anion Gap 6 (6-14) Blood Urea Nitrogen 19 mg/dL (8-26) Creatinine 1.4 mg/dL (0.7-1.3) Estimated GFR (Cockcroft-Gault) 60.8 Glucose Level 101 mg/dL (70-99) Calcium Level 7.9 mg/dL (8.5-10.1) Laboratory Tests Test 09/13/20 16:46 09/13/20 17:56 09/13/20 19:48 09/14/20 07:10 Glucose (Fingerstick) 56 mg/dL (70-99) 132 mg/dL (70-99) 138 mg/dL (70-99) White Blood Count 6.0 x10^3/uL (4.0-11.0) Red Blood Count 3.50 x10^6/uL (4.30-5.70) Hemoglobin 8.3 g/dL (13.0-17.5) Hematocrit 26.5 % (39.0-53.0) Mean Corpuscular Volume 76 fL (79-100) Mean Corpuscular Hemoglobin 24 pg (25-35) Mean Corpuscular Hemoglobin Concent 31 g/dL (31-37) Red Cell Distribution Width 16.0 % (11.5-14.5) Platelet Count 299 x10^3/uL (140-400) Neutrophils (%) (Auto) 61 % (31-73) Lymphocytes (%) (Auto) 29 % (24-48) Monocytes (%) (Auto) 8 % (0-9) Eosinophils (%) (Auto) 2 % (0-3) Basophils (%) (Auto) 0 % (0-3) Neutrophils # (Auto) 3.7 x10^3/uL (1.8-7.7) Lymphocytes # (Auto) 1.7 x10^3/uL (1.0-4.8) Monocytes # (Auto) 0.4 x10^3/uL (0.0-1.1) Eosinophils # (Auto) 0.1 x10^3/uL (0.0-0.7) Basophils # (Auto) 0.0 x10^3/uL (0.0-0.2) Sodium Level 142 mmol/L (136-145) Potassium Level 4.4 mmol/L (3.5-5.1) Chloride Level 107 mmol/L (98-107) Carbon Dioxide Level 29 mmol/L (21-32) Anion Gap 6 (6-14) Blood Urea Nitrogen 19 mg/dL (8-26) Creatinine 1.4 mg/dL (0.7-1.3) Estimated GFR (Cockcroft-Gault) 60.8 Glucose Level 101 mg/dL (70-99) Calcium Level 7.9 mg/dL (8.5-10.1) Test 09/14/20 07:23 09/14/20 10:36 Glucose (Fingerstick) 105 mg/dL (70-99) 97 mg/dL (70-99) Problem List Problems Medical Problems: (1) Abdominal pain Status: Acute (2) Cancer of ascending colon metastatic to intra-abdominal lymph node Status: Acute Justicifation of Admission Dx: Justifications for Admission: Justification of Admission Dx: Yes JOAQUÍN MON MD 09/15/20 1455: SURGICAL PROGRESS NOTE Assessment/Plan Agree with above BÁRBARA COLEY DERRICK BOAT LEVERMAN Sep 14, 2020 14:24 JOAQUÍN MON MD Sep 15, 2020 14:55
[2020-09-14 15:00] VITALS: BP 154/89
[2020-09-14] MEDS: HYDROcodone/APAP 5/325MG 1 TAB TABLET PO PRN (18:29)
[2020-09-14 19:20] VITALS: BP 147/75
[2020-09-14] MEDS: INSULIN GLARGINE SYRINGE. SQ SCH (21:00)
[2020-09-14 23:05] VITALS: BP 122/64
[2020-09-15] MEDS: IV RINGERS,LACTATED 1000ML 1,000 ML IV SCH ×2 (02:20→12:12)
[2020-09-15 03:06] VITALS: BP 132/70
[2020-09-15] MEDS: AMINO AC 3%/ELECTROLYTE/GLYCER 1,000 ML IV SCH ×2 (03:07→15:53)
[2020-09-15 07:00] VITALS: BP 139/69
[2020-09-15] MEDS: ENOXAPARIN 40 MG/0.4 ML SYRINGE. SQ SCH ×2 (07:12→08:10)
[2020-09-15] MEDS: INSULIN LISPRO 300 UNITS/3 ML VIAL. SQ SCH ×3 (07:31→16:13)
[2020-09-15 08:15] LABS: BASO % 1 % (0-3); EOS # 0.2 x10^3/uL (0.0-0.7); EOS % 3 % (0-3); HEMATOCRIT 25.9 % (39.0-53.0); HEMOGLOBIN 8.1 g/dL (13.0-17.5); LYMPH # 1.4 x10^3/uL (1.0-4.8); LYMPH % 24 % (24-48); MEAN CORPUSCULAR HEMOGLOBIN 24 pg (25-35); MEAN CORPUSCULAR HGB CONC 31 g/dL (31-37); MEAN CORPUSCULAR VOLUME 76 fL (79-100); MONO # 0.4 x10^3/uL (0.0-1.1); MONO % 6 % (0-9); NEUT % 66 % (31-73); PLATELET COUNT 286 x10^3/uL (140-400); RED BLOOD COUNT 3.41 x10^6/uL (4.30-5.70); RED CELL DISTRIBUTION WIDTH 15.8 % (11.5-14.5)
[2020-09-15 08:25] LABS: CALCIUM 7.7 mg/dL (8.5-10.1); CREATININE 1.2 mg/dL (0.7-1.3); GFR 72.6; POTASSIUM 4.8 mmol/L (3.5-5.1)
--- NOTE | 2020-09-15 08:44 | PDOC ---
[employer] PROGRESS NOTE Date of Service DOS: DATE: 09/15/20 TIME: 08:41 Chief Complaint Chief Complaint Colon cancer Anemia NITESH Vasomotor nephropathy DM2 with hyperglycemia Severe malnutrition History of Present Illness History of Present Illness Patient is 69-year-old male with past medical history DM2, who presents to the ER with complaints of worsening diffuse abdominal pain for the past 5 months. He reports aching/gnawing pain, 8/10. He has associated decreased appetite, intermittent constipation, and intermittent diarrhea. He notes roughly 30 pound unintentional weight loss over this time. He denies any specific aggravating or alleviating symptoms. He did have an appointment earlier this month for CT abdomen that he missed, and was rescheduled for September. He came to the ED due to worsening of his symptoms. CT abdomen pelvis obtained on admission showed findings concerning for malignancy of the colon. Will admit patient for further medical management. 09/13 Patient seen and examined Discussed with RN Discussed with case management Patient is comfortable and was resting when we seen him 09/14 Patient seen and examined Chart reviewed Discussed with RN Discussed with case management Patient is comfortable 09/15 Patient seen and examined Chart reviewed Discussed with RN Discussed with case management Patient is comfortable Vitals/I&O Vitals/I&O: Vital Signs Date Time Temp Pulse Resp B/P (MAP) Pulse Ox O2 Delivery O2 Flow Rate FiO2 09/15/20 07:00 98.3 68 19 139/69 (92) 98 Room Air 98.3 09/14/20 13:05 2 I & O 09/14/20 09/14/20 09/15/20 15:00 23:00 07:00 Intake Total 500 ml 60 ml 480 ml Balance 500 ml 60 ml 480 ml Physical Exam General: Alert, Oriented X3 Heart: Regular rate, Normal S1 Lungs: Clear Abdomen: Normal bowel sounds, Soft Extremities: No clubbing, No cyanosis Skin: No rashes, Other (no itching) Labs Labs: Laboratory Tests Test 09/14/20 10:36 09/14/20 17:13 09/14/20 20:59 09/15/20 07:00 Glucose (Fingerstick) 97 mg/dL (70-99) 114 mg/dL (70-99) 269 mg/dL (70-99) White Blood Count 6.0 x10^3/uL (4.0-11.0) Red Blood Count 3.41 x10^6/uL (4.30-5.70) Hemoglobin 8.1 g/dL (13.0-17.5) Hematocrit 25.9 % (39.0-53.0) Mean Corpuscular Volume 76 fL (79-100) Mean Corpuscular Hemoglobin 24 pg (25-35) Mean Corpuscular Hemoglobin Concent 31 g/dL (31-37) Red Cell Distribution Width 15.8 % (11.5-14.5) Platelet Count 286 x10^3/uL (140-400) Neutrophils (%) (Auto) 66 % (31-73) Lymphocytes (%) (Auto) 24 % (24-48) Monocytes (%) (Auto) 6 % (0-9) Eosinophils (%) (Auto) 3 % (0-3) Basophils (%) (Auto) 1 % (0-3) Neutrophils # (Auto) 4.0 x10^3/uL (1.8-7.7) Lymphocytes # (Auto) 1.4 x10^3/uL (1.0-4.8) Monocytes # (Auto) 0.4 x10^3/uL (0.0-1.1) Eosinophils # (Auto) 0.2 x10^3/uL (0.0-0.7) Basophils # (Auto) 0.0 x10^3/uL (0.0-0.2) Sodium Level 140 mmol/L (136-145) Potassium Level 4.8 mmol/L (3.5-5.1) Chloride Level 106 mmol/L (98-107) Carbon Dioxide Level 25 mmol/L (21-32) Anion Gap 9 (6-14) Blood Urea Nitrogen 18 mg/dL (8-26) Creatinine 1.2 mg/dL (0.7-1.3) Estimated GFR (Cockcroft-Gault) 72.6 Glucose Level 153 mg/dL (70-99) Calcium Level 7.7 mg/dL (8.5-10.1) Test 09/15/20 07:17 Glucose (Fingerstick) 148 mg/dL (70-99) Review of Systems Review of Systems: Denies headache, changes in vision or numbness Denies itching or rashes Assessment and Plan Assessmemt and Plan Problems Medical Problems: (1) Abdominal pain Status: Acute (2) Cancer of ascending colon metastatic to intra-abdominal lymph node Status: Acute Assessment: Colon cancer Anemia NITESH Vasomotor nephropathy DM2 with hyperglycemia Severe malnutrition Plan: Awaiting biopsy report Continue ppn Full code DVT prophylaxis Home meds Trend labs Comment Review of Relevant I have reviewed the following items neil (where applicable) has been applied. Medications: Current Medications Medications (Trade) Dose Ordered Sig/Syeda Route PRN Reason Start Time Stop Time Status Last Admin Dose Admin Ringer's Solution 1,000 ml @ 75 mls/hr [id number] IV 09/14/20 13:00 09/14/20 12:36 Justifications for Admission Other Justification GI malignancy, anemia CASTLE,NIAL K III DO Sep 15, 2020 08:44
--- NOTE | 2020-09-15 09:48 | NUR ---
SW following. Discussed with RN, pt from home alone, room air, clear liquid diet, PPN. Awaiting biopsy results - RN determining whether pt is needing a port placed for chemo or not. SW will continue to follow.
--- NOTE | 2020-09-15 10:57 | PDOC ---
Date of Service: DATE: 09/15/20 TIME: 10:54 Subjective: Subjective: Feels the same. Doesn't know which doctors he's seen and which he hasn't. Taking clears. Says more than that will cause pain. Objective: Vital Signs: Vital Signs Date Time Temp Pulse Resp B/P (MAP) Pulse Ox O2 Delivery O2 Flow Rate FiO2 09/15/20 08:00 Room Air 09/15/20 07:00 98.3 68 19 139/69 (92) 98 98.3 09/14/20 13:05 2 Labs: Laboratory Tests Test 09/14/20 17:13 09/14/20 20:59 09/15/20 07:00 09/15/20 07:17 Glucose (Fingerstick) 114 mg/dL 269 mg/dL 148 mg/dL White Blood Count 6.0 x10^3/uL Red Blood Count 3.41 x10^6/uL Hemoglobin 8.1 g/dL Hematocrit 25.9 % Mean Corpuscular Volume 76 fL Mean Corpuscular Hemoglobin 24 pg Mean Corpuscular Hemoglobin Concent 31 g/dL Red Cell Distribution Width 15.8 % Platelet Count 286 x10^3/uL Neutrophils (%) (Auto) 66 % Lymphocytes (%) (Auto) 24 % Monocytes (%) (Auto) 6 % Eosinophils (%) (Auto) 3 % Basophils (%) (Auto) 1 % Neutrophils # (Auto) 4.0 x10^3/uL Lymphocytes # (Auto) 1.4 x10^3/uL Monocytes # (Auto) 0.4 x10^3/uL Eosinophils # (Auto) 0.2 x10^3/uL Basophils # (Auto) 0.0 x10^3/uL Sodium Level 140 mmol/L Potassium Level 4.8 mmol/L Chloride Level 106 mmol/L Carbon Dioxide Level 25 mmol/L Anion Gap 9 Blood Urea Nitrogen 18 mg/dL Creatinine 1.2 mg/dL Estimated GFR (Cockcroft-Gault) 72.6 Glucose Level 153 mg/dL Calcium Level 7.7 mg/dL Imaging: Colonoscopy with biopsies Indication: Imaging suggesting hepatic flexure tumor/PUJA Findings: ZULMA normal. --'Scope advanced to ~hepatic flexure. Obstructing tumor at this point; could not pass. Biopsied. Placed tattoo in proximal transverse, incorporating couple of polyps distal to tumor. Mucosa otherwise normal. Diverticulosis from sigmoid to transverse. 3 mm rectal polyp, biopsied off. Internal hemorrhoids on retroflex. 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 Diverticulosis. Colon polyps. Internal hemorrhoids. REC: Await path. Stay at clears for now. Await other pending data. PE: GEN: NAD - sitting on edge of bed LUNGS: CTAB HEART: RRR ABD: soft NEURO/PSYCH: A & O 3, quiet A/P: Hepatic flexure tumor - obstructing, path pending PUJA/ACD -- Continue per oncology and surgery. Justicifation of Admission Dx: Justifications for Admission: Justification of Admission Dx: Yes JEISON CONNOR Sep 15, 2020 10:57
[2020-09-15 11:00] VITALS: BP 148/72
--- NOTE | 2020-09-15 14:57 | PDOC ---
PROGRESS NOTES Date of Service DATE: 09/15/20 TIME: 14:55 Subjective Subjective doing "ok" Objective Objective Vital Signs Date Time Temp Pulse Resp B/P (MAP) Pulse Ox O2 Delivery O2 Flow Rate FiO2 09/15/20 11:00 98.4 78 18 148/72 (97) 97 Room Air 98.4 09/14/20 13:05 2 Intake and Output 09/15/20 07:00 Intake Total 1040 ml Balance 1040 ml Intake Oral 540 ml IV Total 500 ml # Voids 3 Physical Exam Abdomen: Soft (nontender at this time) Heart: Regular rate Extremities: No clubbing, No cyanosis General: Alert, Oriented X3 Lungs: Clear to auscultation Neuro: Normal speech Assessment Assessment Problems Medical Problems: (1) Abdominal pain Status: Acute (2) Cancer of ascending colon metastatic to intra-abdominal lymph node Status: Acute Plan Plan of Care Discussed with Oncology; recommend palliative R colectomy given impending obstruction; will then need adjuvant chemotherapy. Details/risks of surgery discussed with the patient. He understands and would like to proceed. Comment Review of Relevant I have reviewed the following items neil (where applicable) has been applied. Labs Laboratory Tests Test 09/13/20 16:46 09/13/20 17:56 09/13/20 19:48 09/14/20 07:10 Glucose (Fingerstick) 56 mg/dL (70-99) 132 mg/dL (70-99) 138 mg/dL (70-99) White Blood Count 6.0 x10^3/uL (4.0-11.0) Red Blood Count 3.50 x10^6/uL (4.30-5.70) Hemoglobin 8.3 g/dL (13.0-17.5) Hematocrit 26.5 % (39.0-53.0) Mean Corpuscular Volume 76 fL (79-100) Mean Corpuscular Hemoglobin 24 pg (25-35) Mean Corpuscular Hemoglobin Concent 31 g/dL (31-37) Red Cell Distribution Width 16.0 % (11.5-14.5) Platelet Count 299 x10^3/uL (140-400) Neutrophils (%) (Auto) 61 % (31-73) Lymphocytes (%) (Auto) 29 % (24-48) Monocytes (%) (Auto) 8 % (0-9) Eosinophils (%) (Auto) 2 % (0-3) Basophils (%) (Auto) 0 % (0-3) Neutrophils # (Auto) 3.7 x10^3/uL (1.8-7.7) Lymphocytes # (Auto) 1.7 x10^3/uL (1.0-4.8) Monocytes # (Auto) 0.4 x10^3/uL (0.0-1.1) Eosinophils # (Auto) 0.1 x10^3/uL (0.0-0.7) Basophils # (Auto) 0.0 x10^3/uL (0.0-0.2) Sodium Level 142 mmol/L (136-145) Potassium Level 4.4 mmol/L (3.5-5.1) Chloride Level 107 mmol/L (98-107) Carbon Dioxide Level 29 mmol/L (21-32) Anion Gap 6 (6-14) Blood Urea Nitrogen 19 mg/dL (8-26) Creatinine 1.4 mg/dL (0.7-1.3) Estimated GFR (Cockcroft-Gault) 60.8 Glucose Level 101 mg/dL (70-99) Calcium Level 7.9 mg/dL (8.5-10.1) Test 09/14/20 07:23 09/14/20 10:36 09/14/20 17:13 09/14/20 20:59 Glucose (Fingerstick) 105 mg/dL (70-99) 97 mg/dL (70-99) 114 mg/dL (70-99) 269 mg/dL (70-99) Test 09/15/20 07:00 09/15/20 07:17 09/15/20 11:08 White Blood Count 6.0 x10^3/uL (4.0-11.0) Red Blood Count 3.41 x10^6/uL (4.30-5.70) Hemoglobin 8.1 g/dL (13.0-17.5) Hematocrit 25.9 % (39.0-53.0) Mean Corpuscular Volume 76 fL (79-100) Mean Corpuscular Hemoglobin 24 pg (25-35) Mean Corpuscular Hemoglobin Concent 31 g/dL (31-37) Red Cell Distribution Width 15.8 % (11.5-14.5) Platelet Count 286 x10^3/uL (140-400) Neutrophils (%) (Auto) 66 % (31-73) Lymphocytes (%) (Auto) 24 % (24-48) Monocytes (%) (Auto) 6 % (0-9) Eosinophils (%) (Auto) 3 % (0-3) Basophils (%) (Auto) 1 % (0-3) Neutrophils # (Auto) 4.0 x10^3/uL (1.8-7.7) Lymphocytes # (Auto) 1.4 x10^3/uL (1.0-4.8) Monocytes # (Auto) 0.4 x10^3/uL (0.0-1.1) Eosinophils # (Auto) 0.2 x10^3/uL (0.0-0.7) Basophils # (Auto) 0.0 x10^3/uL (0.0-0.2) Sodium Level 140 mmol/L (136-145) Potassium Level 4.8 mmol/L (3.5-5.1) Chloride Level 106 mmol/L (98-107) Carbon Dioxide Level 25 mmol/L (21-32) Anion Gap 9 (6-14) Blood Urea Nitrogen 18 mg/dL (8-26) Creatinine 1.2 mg/dL (0.7-1.3) Estimated GFR (Cockcroft-Gault) 72.6 Glucose Level 153 mg/dL (70-99) Calcium Level 7.7 mg/dL (8.5-10.1) Glucose (Fingerstick) 148 mg/dL (70-99) 279 mg/dL (70-99) Laboratory Tests Test 09/14/20 17:13 09/14/20 20:59 09/15/20 07:00 09/15/20 07:17 Glucose (Fingerstick) 114 mg/dL (70-99) 269 mg/dL (70-99) 148 mg/dL (70-99) White Blood Count 6.0 x10^3/uL (4.0-11.0) Red Blood Count 3.41 x10^6/uL (4.30-5.70) Hemoglobin 8.1 g/dL (13.0-17.5) Hematocrit 25.9 % (39.0-53.0) Mean Corpuscular Volume 76 fL (79-100) Mean Corpuscular Hemoglobin 24 pg (25-35) Mean Corpuscular Hemoglobin Concent 31 g/dL (31-37) Red Cell Distribution Width 15.8 % (11.5-14.5) Platelet Count 286 x10^3/uL (140-400) Neutrophils (%) (Auto) 66 % (31-73) Lymphocytes (%) (Auto) 24 % (24-48) Monocytes (%) (Auto) 6 % (0-9) Eosinophils (%) (Auto) 3 % (0-3) Basophils (%) (Auto) 1 % (0-3) Neutrophils # (Auto) 4.0 x10^3/uL (1.8-7.7) Lymphocytes # (Auto) 1.4 x10^3/uL (1.0-4.8) Monocytes # (Auto) 0.4 x10^3/uL (0.0-1.1) Eosinophils # (Auto) 0.2 x10^3/uL (0.0-0.7) Basophils # (Auto) 0.0 x10^3/uL (0.0-0.2) Sodium Level 140 mmol/L (136-145) Potassium Level 4.8 mmol/L (3.5-5.1) Chloride Level 106 mmol/L (98-107) Carbon Dioxide Level 25 mmol/L (21-32) Anion Gap 9 (6-14) Blood Urea Nitrogen 18 mg/dL (8-26) Creatinine 1.2 mg/dL (0.7-1.3) Estimated GFR (Cockcroft-Gault) 72.6 Glucose Level 153 mg/dL (70-99) Calcium Level 7.7 mg/dL (8.5-10.1) Test 09/15/20 11:08 Glucose (Fingerstick) 279 mg/dL (70-99) Medications Current Medications Sodium Chloride 1,000 ml @ 1,000 mls/hr 1X ONCE IV Last administered on 09/11/20at 17:47; Start 09/11/20 at 17:45; Stop 09/11/20 at 18:44; Status DC Morphine Sulfate (Morphine Sulfate) 5 mg 1X ONCE IV Last administered on 09/11/20at 17:48; Start 09/11/20 at 17:45; Stop 09/11/20 at 17:46; Status DC Iohexol (Omnipaque 240 Mg/ml) 30 ml 1X ONCE PO Last administered on 09/11/20at 17:50; Start 09/11/20 at 19:00; Stop 09/11/20 at 19:01; Status DC Info (CONTRAST GIVEN -- Rx MONITORING) 1 each PRN DAILY PRN MC SEE COMMENTS; Start 09/11/20 at 19:00; Stop 09/13/20 at 18:59; Status DC Ondansetron HCl (Zofran) 4 mg PRN Q8HRS PRN IV NAUSEA/VOMITING; Start 09/11/20 at 20:15; Stop 09/12/20 at 15:38; Status DC Morphine Sulfate (Morphine Sulfate) 2 mg PRN Q2HR PRN IV PAIN Last administered on 09/11/20at 22:03; Start 09/11/20 at 20:15; Stop 09/12/20 at 20:14; Status DC Insulin Glargine (Lantus Syringe) 10 unit QHS SQ ; Start 09/12/20 at 21:00 Insulin Human Lispro (HumaLOG) 0-9 UNITS TIDWMEALS SQ Last administered on 09/15/20at 11:41; Start 09/12/20 at 08:00 Dextrose (Dextrose 50%-Water Syringe) 12.5 gm PRN Q15MIN PRN IV SEE COMMENTS; Start 09/12/20 at 07:15 Tramadol HCl (Ultram) 50 mg PRN Q6HRS PRN PO PAIN MILD 2ND CHOICE; Start 09/12/20 at 07:15 Fentanyl Citrate (Fentanyl 2ml Vial) 50 mcg PRN Q2HR PRN IVP PAIN SEVERE; Start 09/12/20 at 07:15 Ondansetron HCl (Zofran) 4 mg PRN Q6HRS PRN IVP NAUSEA/VOMITING; Start 09/12/20 at 07:15 Al Hydroxide/Mg Hydroxide (Mylanta Plus Xs) 30 ml PRN Q3HRS PRN PO HEARTBURN / GAS; Start 09/12/20 at 07:15 Calcium Carbonate/ Glycine (Tums) 500 mg PRN Q3HRS PRN PO UPSET STOMACH; Start 09/12/20 at 07:15 Zolpidem Tartrate (Ambien) 5 mg PRN QHS PRN PO INSOMNIA, MAY REPEAT IN 1HR; Start 09/12/20 at 07:15 Acetaminophen/ Hydrocodone Bitart (Lortab 5/325) 1 tab PRN Q4HRS PRN PO MILD PAIN 1-3 1ST CHOICE; Start 09/12/20 at 07:15 Acetaminophen/ Hydrocodone Bitart (Lortab 5/325) 2 tab PRN Q4HRS PRN PO MODERATE PAIN, SEVERE PAIN Last administered on 09/14/20at 18:29; Start 09/12/20 at 07:15 Acetaminophen (Tylenol) 650 mg PRN Q6HRS PRN PO Headaches, Temp > 101.5F; Start 09/12/20 at 07:15 Ibuprofen (Motrin) 400 mg PRN Q6HRS PRN PO INFLAMMATION; Start 09/12/20 at 07:15 Magnesium Hydroxide (Milk Of Magnesia) 2,400 mg PRN Q12HR PRN PO CONSTIPATION; Start 09/12/20 at 07:15 Bisacodyl (Dulcolax Supp) 10 mg PRN DAILY PRN [place] CONSTIPATION; Start 09/12/20 at 07:15 Enoxaparin Sodium (Lovenox 40mg Syringe) 40 mg Q24H SQ Last administered on 09/15/20at 08:10; Start 09/12/20 at 09:00 Magnesium Hydroxide (Milk Of Magnesia) 2,400 mg 1X ONCE PO Last administered on 09/12/20at 13:03; Start 09/12/20 at 13:00; Stop 09/12/20 at 13:01; Status DC Sodium Cl/Sod Bicarb/Potass Cl/ PEG (Golytely) 4,000 ml 1X ONCE PO Last administered on 09/13/20at 14:49; Start 09/13/20 at 11:00; Stop 09/13/20 at 11:01; Status DC Amino Acids/ Glycerin/ Electrolytes 1,000 ml @ 75 mls/hr [id number] IV Last administered on 09/15/20at 03:07; Start 09/13/20 at 11:15 Ringer's Solution 1,000 ml @ 75 mls/hr [id number] IV Last administered on 09/14/20at 12:36; Start 09/14/20 at 13:00 Propofol (Diprivan) 200 mg STK-MED ONCE IV ; Start 09/14/20 at 12:26; Stop 09/14/20 at 12:26; Status DC Fentanyl Citrate (Fentanyl 2ml Vial) 25 mcg PRN Q5MIN PRN IV MILD PAIN 1-3; Start 09/16/20 at 07:00; Stop 09/17/20 at 06:59 Fentanyl Citrate (Fentanyl 2ml Vial) 50 mcg PRN Q5MIN PRN IV MODERATE TO SEVERE PAIN; Start 09/16/20 at 07:00; Stop 09/17/20 at 06:59 Morphine Sulfate (Morphine Sulfate) 1 mg PRN Q10MIN PRN IV SEVERE PAIN 7-10; Start 09/16/20 at 07:00; Stop 09/17/20 at 06:59 Ringer's Solution 1,000 ml @ 30 mls/hr Q24H IV ; Start 09/16/20 at 07:00; Stop 09/16/20 at 18:59 Hydromorphone HCl (Dilaudid) 0.5 mg PRN Q10MIN PRN IV SEV PAIN, Second choice; Start 09/16/20 at 07:00; Stop 09/17/20 at 06:59 Prochlorperazine Edisylate (Compazine) 5 mg PACU PRN PRN IV NAUSEA, MRX1; Start 09/16/20 at 07:00; Stop 09/17/20 at 06:59 Active Scripts Active Reported Glipizide 5 Mg Tablet 1 Tab PO BID Lisinopril 5 Mg Tablet 5 Mg PO BID Vitals/I & O Vital Sign - Last 24 Hours 09/14/20 09/14/20 09/14/20 09/14/20 15:00 18:29 19:20 19:30 Temp 98.5 98.8 98.5 98.8 Pulse 82 82 Resp 16 16 18 B/P (MAP) 154/89 (110) 147/75 (99) Pulse Ox 100 99 O2 Delivery Room Air Room Air Room Air Room Air 09/14/20 09/14/20 09/15/20 09/15/20 19:40 23:05 03:06 07:00 Temp 98.7 98.6 98.3 98.7 98.6 98.3 Pulse 73 75 68 Resp 18 18 19 B/P (MAP) 122/64 (83) 132/70 (90) 139/69 (92) Pulse Ox 97 92 98 O2 Delivery Room Air Room Air Room Air Room Air 09/15/20 09/15/20 08:00 11:00 Temp 98.4 98.4 Pulse 78 Resp 18 B/P (MAP) 148/72 (97) Pulse Ox 97 O2 Delivery Room Air Room Air Intake and Output 09/14/20 09/14/20 09/15/20 15:00 23:00 07:00 Intake Total 500 ml 60 ml 480 ml Balance 500 ml 60 ml 480 ml Justifications for Admission Other Justification GI malignancy, anemia Nutrition Consultation Dietary Evaluation: Recommendations by RD: Dietary education by RD, Increase Calorie Intake, Protein supplementation, PPN/TPN Comments: sending ensure clear while on clear liquid diet REC ADA diet when able to advance with glucerna supplements Continue PPN until pt tolerates >50% of meals Expected Outcomes/Goals: to meet >75% est nutr needs via po intake Interpretation of weight loss: >10% in 6 months Malnutrition Findings: Food and Nutrition Intake (Sev: <50% est energy req 5days Body Fat Depletion (Non Severe: Mild Depletion Weight Status: Appropriate JOAQUÍN ZAMBRANO MD Sep 15, 2020 14:57
--- NOTE | 2020-09-15 14:59 | PDOC ---
PROGRESS NOTES Date of Service DATE: 09/15/20 TIME: 14:56 Subjective Subjective Received EGD showing colonic mass with impending obstruction. Discussed with Dr. Mon regarding timing of surgery related to initiation of systemic therapy. No additional interval events Objective Objective Vital Signs Date Time Temp Pulse Resp B/P (MAP) Pulse Ox O2 Delivery O2 Flow Rate FiO2 09/15/20 11:00 98.4 78 18 148/72 (97) 97 Room Air 98.4 09/14/20 13:05 2 Intake and Output 09/15/20 07:00 Intake Total 1040 ml Balance 1040 ml Intake Oral 540 ml IV Total 500 ml # Voids 3 Physical Exam Abdomen: Normal bowel sounds, Soft Heart: Regular rate, Normal S1, Normal S2 Extremities: No clubbing, No cyanosis General: Alert, Oriented X3 HEENT: Atraumatic, PERRLA Lungs: Clear to auscultation MUSCULOSKELETAL: No swelling Neck: Supple Neuro: Normal speech Psych/Mental Status: Mental status NL Skin: No rashes Assessment Assessment Suspected metastatic colon cancer Iron deficiency anemia Abdominal pain, secondary to colonic malignancy Elevated creatinine-NITESH/CKD Plan Plan of Care -Reviewed results of CT of the chest, abdomen and pelvis with the patient. These show a right colonic mass with multifocal liver and pulmonary metastasis -Reviewed results of colonoscopy report. Awaiting pathology. Plan on obtaining BRAF, JALEN, and MSI testing to plan systemic therapy -Discussed with Dr. Mon. Given impending obstruction from colonic mass, would favor palliative resection prior to initiation of systemic therapy -We will plan on seeing outpatient next week and starting chemotherapy 3 to 4 weeks after surgery -I previously discussed with the patient the goal of therapy in this setting is disease control, palliation of symptoms and prolonging life. We discussed that any therapy is unlikely to be curative in the setting -Rest per Dr. Cesar Velazquez MD Medical Oncology/Hematology Ph: [phone] Comment Review of Relevant I have reviewed the following items neil (where applicable) has been applied. Labs Laboratory Tests Test 09/13/20 16:46 09/13/20 17:56 09/13/20 19:48 09/14/20 07:10 Glucose (Fingerstick) 56 mg/dL (70-99) 132 mg/dL (70-99) 138 mg/dL (70-99) White Blood Count 6.0 x10^3/uL (4.0-11.0) Red Blood Count 3.50 x10^6/uL (4.30-5.70) Hemoglobin 8.3 g/dL (13.0-17.5) Hematocrit 26.5 % (39.0-53.0) Mean Corpuscular Volume 76 fL (79-100) Mean Corpuscular Hemoglobin 24 pg (25-35) Mean Corpuscular Hemoglobin Concent 31 g/dL (31-37) Red Cell Distribution Width 16.0 % (11.5-14.5) Platelet Count 299 x10^3/uL (140-400) Neutrophils (%) (Auto) 61 % (31-73) Lymphocytes (%) (Auto) 29 % (24-48) Monocytes (%) (Auto) 8 % (0-9) Eosinophils (%) (Auto) 2 % (0-3) Basophils (%) (Auto) 0 % (0-3) Neutrophils # (Auto) 3.7 x10^3/uL (1.8-7.7) Lymphocytes # (Auto) 1.7 x10^3/uL (1.0-4.8) Monocytes # (Auto) 0.4 x10^3/uL (0.0-1.1) Eosinophils # (Auto) 0.1 x10^3/uL (0.0-0.7) Basophils # (Auto) 0.0 x10^3/uL (0.0-0.2) Sodium Level 142 mmol/L (136-145) Potassium Level 4.4 mmol/L (3.5-5.1) Chloride Level 107 mmol/L (98-107) Carbon Dioxide Level 29 mmol/L (21-32) Anion Gap 6 (6-14) Blood Urea Nitrogen 19 mg/dL (8-26) Creatinine 1.4 mg/dL (0.7-1.3) Estimated GFR (Cockcroft-Gault) 60.8 Glucose Level 101 mg/dL (70-99) Calcium Level 7.9 mg/dL (8.5-10.1) Test 09/14/20 07:23 09/14/20 10:36 09/14/20 17:13 09/14/20 20:59 Glucose (Fingerstick) 105 mg/dL (70-99) 97 mg/dL (70-99) 114 mg/dL (70-99) 269 mg/dL (70-99) Test 09/15/20 07:00 09/15/20 07:17 09/15/20 11:08 White Blood Count 6.0 x10^3/uL (4.0-11.0) Red Blood Count 3.41 x10^6/uL (4.30-5.70) Hemoglobin 8.1 g/dL (13.0-17.5) Hematocrit 25.9 % (39.0-53.0) Mean Corpuscular Volume 76 fL (79-100) Mean Corpuscular Hemoglobin 24 pg (25-35) Mean Corpuscular Hemoglobin Concent 31 g/dL (31-37) Red Cell Distribution Width 15.8 % (11.5-14.5) Platelet Count 286 x10^3/uL (140-400) Neutrophils (%) (Auto) 66 % (31-73) Lymphocytes (%) (Auto) 24 % (24-48) Monocytes (%) (Auto) 6 % (0-9) Eosinophils (%) (Auto) 3 % (0-3) Basophils (%) (Auto) 1 % (0-3) Neutrophils # (Auto) 4.0 x10^3/uL (1.8-7.7) Lymphocytes # (Auto) 1.4 x10^3/uL (1.0-4.8) Monocytes # (Auto) 0.4 x10^3/uL (0.0-1.1) Eosinophils # (Auto) 0.2 x10^3/uL (0.0-0.7) Basophils # (Auto) 0.0 x10^3/uL (0.0-0.2) Sodium Level 140 mmol/L (136-145) Potassium Level 4.8 mmol/L (3.5-5.1) Chloride Level 106 mmol/L (98-107) Carbon Dioxide Level 25 mmol/L (21-32) Anion Gap 9 (6-14) Blood Urea Nitrogen 18 mg/dL (8-26) Creatinine 1.2 mg/dL (0.7-1.3) Estimated GFR (Cockcroft-Gault) 72.6 Glucose Level 153 mg/dL (70-99) Calcium Level 7.7 mg/dL (8.5-10.1) Glucose (Fingerstick) 148 mg/dL (70-99) 279 mg/dL (70-99) Laboratory Tests Test 09/14/20 17:13 09/14/20 20:59 09/15/20 07:00 09/15/20 07:17 Glucose (Fingerstick) 114 mg/dL (70-99) 269 mg/dL (70-99) 148 mg/dL (70-99) White Blood Count 6.0 x10^3/uL (4.0-11.0) Red Blood Count 3.41 x10^6/uL (4.30-5.70) Hemoglobin 8.1 g/dL (13.0-17.5) Hematocrit 25.9 % (39.0-53.0) Mean Corpuscular Volume 76 fL (79-100) Mean Corpuscular Hemoglobin 24 pg (25-35) Mean Corpuscular Hemoglobin Concent 31 g/dL (31-37) Red Cell Distribution Width 15.8 % (11.5-14.5) Platelet Count 286 x10^3/uL (140-400) Neutrophils (%) (Auto) 66 % (31-73) Lymphocytes (%) (Auto) 24 % (24-48) Monocytes (%) (Auto) 6 % (0-9) Eosinophils (%) (Auto) 3 % (0-3) Basophils (%) (Auto) 1 % (0-3) Neutrophils # (Auto) 4.0 x10^3/uL (1.8-7.7) Lymphocytes # (Auto) 1.4 x10^3/uL (1.0-4.8) Monocytes # (Auto) 0.4 x10^3/uL (0.0-1.1) Eosinophils # (Auto) 0.2 x10^3/uL (0.0-0.7) Basophils # (Auto) 0.0 x10^3/uL (0.0-0.2) Sodium Level 140 mmol/L (136-145) Potassium Level 4.8 mmol/L (3.5-5.1) Chloride Level 106 mmol/L (98-107) Carbon Dioxide Level 25 mmol/L (21-32) Anion Gap 9 (6-14) Blood Urea Nitrogen 18 mg/dL (8-26) Creatinine 1.2 mg/dL (0.7-1.3) Estimated GFR (Cockcroft-Gault) 72.6 Glucose Level 153 mg/dL (70-99) Calcium Level 7.7 mg/dL (8.5-10.1) Test 09/15/20 11:08 Glucose (Fingerstick) 279 mg/dL (70-99) Medications Current Medications Sodium Chloride 1,000 ml @ 1,000 mls/hr 1X ONCE IV Last administered on 09/11/20at 17:47; Start 09/11/20 at 17:45; Stop 09/11/20 at 18:44; Status DC Morphine Sulfate (Morphine Sulfate) 5 mg 1X ONCE IV Last administered on at 17:48; Start 09/11/20 at 17:45; Stop 09/11/20 at 17:46; Status DC Iohexol (Omnipaque 240 Mg/ml) 30 ml 1X ONCE PO Last administered on 09/11/20at 17:50; Start 09/11/20 at 19:00; Stop 09/11/20 at 19:01; Status DC Info (CONTRAST GIVEN -- Rx MONITORING) 1 each PRN DAILY PRN MC SEE COMMENTS; Start 09/11/20 at 19:00; Stop 09/13/20 at 18:59; Status DC Ondansetron HCl (Zofran) 4 mg PRN Q8HRS PRN IV NAUSEA/VOMITING; Start 09/11/20 at 20:15; Stop 09/12/20 at 15:38; Status DC Morphine Sulfate (Morphine Sulfate) 2 mg PRN Q2HR PRN IV PAIN Last administered on 09/11/20at 22:03; Start 09/11/20 at 20:15; Stop 09/12/20 at 20:14; Status DC Insulin Glargine (Lantus Syringe) 10 unit QHS SQ ; Start 09/12/20 at 21:00 Insulin Human Lispro (HumaLOG) 0-9 UNITS TIDWMEALS SQ Last administered on 09/15/20at 11:41; Start 09/12/20 at 08:00 Dextrose (Dextrose 50%-Water Syringe) 12.5 gm PRN Q15MIN PRN IV SEE COMMENTS; Start 09/12/20 at 07:15 Tramadol HCl (Ultram) 50 mg PRN Q6HRS PRN PO PAIN MILD 2ND CHOICE; Start 09/12/20 at 07:15 Fentanyl Citrate (Fentanyl 2ml Vial) 50 mcg PRN Q2HR PRN IVP PAIN SEVERE; Start 09/12/20 at 07:15 Ondansetron HCl (Zofran) 4 mg PRN Q6HRS PRN IVP NAUSEA/VOMITING; Start 09/12/20 at 07:15 Al Hydroxide/Mg Hydroxide (Mylanta Plus Xs) 30 ml PRN Q3HRS PRN PO HEARTBURN / GAS; Start 09/12/20 at 07:15 Calcium Carbonate/ Glycine (Tums) 500 mg PRN Q3HRS PRN PO UPSET STOMACH; Start 09/12/20 at 07:15 Zolpidem Tartrate (Ambien) 5 mg PRN QHS PRN PO INSOMNIA, MAY REPEAT IN 1HR; Start 09/12/20 at 07:15 Acetaminophen/ Hydrocodone Bitart (Lortab 5/325) 1 tab PRN Q4HRS PRN PO MILD PAIN 1-3 1ST CHOICE; Start 09/12/20 at 07:15 Acetaminophen/ Hydrocodone Bitart (Lortab 5/325) 2 tab PRN Q4HRS PRN PO MODERATE PAIN, SEVERE PAIN Last administered on 09/14/20at 18:29; Start 09/12/20 at 07:15 Acetaminophen (Tylenol) 650 mg PRN Q6HRS PRN PO Headaches, Temp > 101.5F; Star t 09/12/20 at 07:15 Ibuprofen (Motrin) 400 mg PRN Q6HRS PRN PO INFLAMMATION; Start 09/12/20 at 07:15 Magnesium Hydroxide (Milk Of Magnesia) 2,400 mg PRN Q12HR PRN PO CONSTIPATION; Start 09/12/20 at 07:15 Bisacodyl (Dulcolax Supp) 10 mg PRN DAILY PRN SC CONSTIPATION; Start 09/12/20 at 07:15 Enoxaparin Sodium (Lovenox 40mg Syringe) 40 mg Q24H SQ Last administered on 09/15/20at 08:10; Start 09/12/20 at 09:00 Magnesium Hydroxide (Milk Of Magnesia) 2,400 mg 1X ONCE PO Last administered on 09/12/20at 13:03; Start 09/12/20 at 13:00; Stop 09/12/20 at 13:01; Status DC Sodium Cl/Sod Bicarb/Potass Cl/ PEG (Golytely) 4,000 ml 1X ONCE PO Last administered on 09/13/20at 14:49; Start 09/13/20 at 11:00; Stop 09/13/20 at 11:01; Status DC Amino Acids/ Glycerin/ Electrolytes 1,000 ml @ 75 mls/hr [id number] IV Last administered on 09/15/20at 03:07; Start 09/13/20 at 11:15 Ringer's Solution 1,000 ml @ 75 mls/hr [id number] IV Last administered on 09/14/20at 12:36; Start 09/14/20 at 13:00 Propofol (Diprivan) 200 mg STK-MED ONCE IV ; Start 09/14/20 at 12:26; Stop 09/14/20 at 12:26; Status DC Fentanyl Citrate (Fentanyl 2ml Vial) 25 mcg PRN Q5MIN PRN IV MILD PAIN 1-3; Start 09/16/20 at 07:00; Stop 09/17/20 at 06:59 Fentanyl Citrate (Fentanyl 2ml Vial) 50 mcg PRN Q5MIN PRN IV MODERATE TO SEVERE PAIN; Start 09/16/20 at 07:00; Stop 09/17/20 at 06:59 Morphine Sulfate (Morphine Sulfate) 1 mg PRN Q10MIN PRN IV SEVERE PAIN 7-10; Start 09/16/20 at 07:00; Stop 09/17/20 at 06:59 Ringer's Solution 1,000 ml @ 30 mls/hr Q24H IV ; Start 09/16/20 at 07:00; Stop 09/16/20 at 18:59 Hydromorphone HCl (Dilaudid) 0.5 mg PRN Q10MIN PRN IV SEV PAIN, Second choice; Start 09/16/20 at 07:00; Stop 09/17/20 at 06:59 Prochlorperazine Edisylate (Compazine) 5 mg PACU PRN PRN IV NAUSEA, MRX1; Start 09/16/20 at 07:00; Stop 09/17/20 at 06:59 Active Scripts Active Reported Glipizide 5 Mg Tablet 1 Tab PO BID Lisinopril 5 Mg Tablet 5 Mg PO BID Vitals/I & O Vital Sign - Last 24 Hours 09/14/20 09/14/20 09/14/20 09/14/20 15:00 18:29 19:20 19:30 Temp 98.5 98.8 98.5 98.8 Pulse 82 82 Resp 16 16 18 B/P (MAP) 154/89 (110) 147/75 (99) Pulse Ox 100 99 O2 Delivery Room Air Room Air Room Air Room Air 09/14/20 09/14/20 09/15/20 09/15/20 19:40 23:05 03:06 07:00 Temp 98.7 98.6 98.3 98.7 98.6 98.3 Pulse 73 75 68 Resp 18 18 19 B/P (MAP) 122/64 (83) 132/70 (90) 139/69 (92) Pulse Ox 97 92 98 O2 Delivery Room Air Room Air Room Air Room Air 09/15/20 09/15/20 08:00 11:00 Temp 98.4 98.4 Pulse 78 Resp 18 B/P (MAP) 148/72 (97) Pulse Ox 97 O2 Delivery Room Air Room Air Intake and Output 09/14/20 09/14/20 09/15/20 15:00 23:00 07:00 Intake Total 500 ml 60 ml 480 ml Balance 500 ml 60 ml 480 ml Justifications for Admission Other Justification GI malignancy, anemia Nutrition Consultation Dietary Evaluation: Recommendations by RD: Dietary education by RD, Increase Calorie Intake, Prote in supplementation, PPN/TPN Comments: sending ensure clear while on clear liquid diet REC ADA diet when able to advance with glucerna supplements Continue PPN until pt tolerates >50% of meals Expected Outcomes/Goals: to meet >75% est nutr needs via po intake Interpretation of weight loss: >10% in 6 months Malnutrition Findings: Food and Nutrition Intake (Sev: <50% est energy req 5days Body Fat Depletion (Non Severe: Mild Depletion Weight Status: Appropriate ANGELIKA VELAZQUEZ MD Sep 15, 2020 14:59
[2020-09-15 15:00] VITALS: BP 136/68
[2020-09-15 19:22] VITALS: BP 156/83
[2020-09-15] MEDS: HYDROcodone/APAP 5/325MG 1 TAB TABLET PO PRN (20:16)
[2020-09-15] MEDS: INSULIN GLARGINE SYRINGE. SQ SCH (21:00)
[2020-09-15 22:55] VITALS: BP 141/76
[2020-09-16] VITALS (12 sets, daily range): BP systolic 104–134; BP diastolic 63–76
[2020-09-16] MEDS ORDERED: INSULIN LISPRO 100 UNIT/ML 3ML VIAL for OP,RR ONLY. SQ PRN (03:30)
[2020-09-16] MEDS ORDERED: HYDROmorphone 2 MG/ML VIAL IV PRN ×2 (03:30→07:00)
[2020-09-16] MEDS ORDERED: fentaNYL PF VIAL 100 MCG/2 ML VIAL IV PRN ×4 (03:30→07:00)
[2020-09-16] MEDS ORDERED: IV RINGERS,LACTATED 1000ML 1,000 ML IV SCH ×2 (03:30→07:00)
[2020-09-16] MEDS ORDERED: MORPHINE SULFATE 2 MG/ML VIAL. IV PRN ×2 (03:30→07:00)
[2020-09-16] MEDS: IV RINGERS,LACTATED 1000ML 1,000 ML IV SCH ×2 (05:00→18:20)
[2020-09-16] MEDS: AMINO AC 3%/ELECTROLYTE/GLYCER 1,000 ML IV SCH ×2 (05:32→19:49)
[2020-09-16] MEDS ORDERED: DEXAMETHASONE SOD PHOS 4 MG/ML VIAL ONE (06:36)
[2020-09-16] MEDS ORDERED: LIDOCAINE 2% PF 5 ML VIAL. ONE (06:36)
[2020-09-16] MEDS ORDERED: PROPOFOL 10 MG/ML (20ML) VIAL. IV ONE (06:36)
[2020-09-16] MEDS ORDERED: ONDANSETRON PF 4 MG/2 ML VIAL. ONE (06:36)
[2020-09-16] MEDS ORDERED: ROCURONIUM 50 MG/5 ML VIAL. ONE ×2 (06:37→08:44)
[2020-09-16] MEDS ORDERED: fentaNYL PF VIAL 100 MCG/2 ML VIAL ONE (06:38)
[2020-09-16] MEDS ORDERED: PROCHLORPERAZINE 10 MG/2 ML VIAL. IV PRN (07:00)
[2020-09-16] MEDS: INSULIN LISPRO 300 UNITS/3 ML VIAL. SQ SCH ×3 (08:00→16:40)
[2020-09-16 08:10] LABS: BASO % 1 % (0-3); EOS # 0.2 x10^3/uL (0.0-0.7); EOS % 3 % (0-3); HEMOGLOBIN 8.8 g/dL (13.0-17.5); LYMPH # 1.9 x10^3/uL (1.0-4.8); LYMPH % 32 % (24-48); MEAN CORPUSCULAR HEMOGLOBIN 24 pg (25-35); MEAN CORPUSCULAR HGB CONC 31 g/dL (31-37); MEAN CORPUSCULAR VOLUME 76 fL (79-100); MONO # 0.3 x10^3/uL (0.0-1.1); MONO % 6 % (0-9); NEUT # 3.5 x10^3/uL (1.8-7.7); NEUT % 59 % (31-73); PLATELET COUNT 338 x10^3/uL (140-400); RED BLOOD COUNT 3.69 x10^6/uL (4.30-5.70); RED CELL DISTRIBUTION WIDTH 15.6 % (11.5-14.5)
[2020-09-16] MEDS ORDERED: MIDAZOLAM HCL/PF 2 MG/2 ML VIAL. ONE (08:12)
[2020-09-16 08:24] LABS: CALCIUM 8.2 mg/dL (8.5-10.1); CREATININE 1.4 mg/dL (0.7-1.3); GFR 60.8; POTASSIUM 4.4 mmol/L (3.5-5.1)
[2020-09-16] MEDS ORDERED: PHENYLEPHRINE 10 MG/ML VIAL. ONE (08:42)
[2020-09-16] MEDS ORDERED: PHENYLEPHRINE in 0.9% NACL PF 1 MG/10 ML SYRINGE. IV ONE (08:42)
[2020-09-16] MEDS ORDERED: NEOSTIGMINE METHYLSULFATE 5 MG/5 ML SYRINGE. ONE (09:11)
[2020-09-16] MEDS ORDERED: GLYCOPYRROLATE 1 MG/5 ML VIAL. ONE (09:11)
--- NOTE | 2020-09-16 10:07 | NUR ---
SW following. Discussed with RN, pt from home alone, room air, NPO. Pt having surgery this morning. SW will continue to follow.
--- NOTE | 2020-09-16 10:09 | PDOC ---
Date of Service: DATE: 09/16/20 TIME: 10:08 Objective: Vital Signs: Vital Signs Date Time Temp Pulse Resp B/P (MAP) Pulse Ox O2 Delivery O2 Flow Rate FiO2 09/16/20 06:57 98.2 80 18 164/81 97 Room Air 98.2 Labs: Laboratory Tests Test 09/15/20 11:08 09/15/20 16:07 09/15/20 20:18 09/16/20 06:45 Glucose (Fingerstick) 279 mg/dL 140 mg/dL 120 mg/dL White Blood Count 6.0 x10^3/uL Red Blood Count 3.69 x10^6/uL Hemoglobin 8.8 g/dL Hematocrit 28.0 % Mean Corpuscular Volume 76 fL Mean Corpuscular Hemoglobin 24 pg Mean Corpuscular Hemoglobin Concent 31 g/dL Red Cell Distribution Width 15.6 % Platelet Count 338 x10^3/uL Neutrophils (%) (Auto) 59 % Lymphocytes (%) (Auto) 32 % Monocytes (%) (Auto) 6 % Eosinophils (%) (Auto) 3 % Basophils (%) (Auto) 1 % Neutrophils # (Auto) 3.5 x10^3/uL Lymphocytes # (Auto) 1.9 x10^3/uL Monocytes # (Auto) 0.3 x10^3/uL Eosinophils # (Auto) 0.2 x10^3/uL Basophils # (Auto) 0.0 x10^3/uL Sodium Level 142 mmol/L Potassium Level 4.4 mmol/L Chloride Level 107 mmol/L Carbon Dioxide Level 27 mmol/L Anion Gap 8 Blood Urea Nitrogen 18 mg/dL Creatinine 1.4 mg/dL Estimated GFR (Cockcroft-Gault) 60.8 Glucose Level 146 mg/dL Calcium Level 8.2 mg/dL Test 09/16/20 07:11 Glucose (Fingerstick) 130 mg/dL PE: out of room A/P: Hepatic flexure tumor - obstructing, path pending -- In OR, will follow. Justicifation of Admission Dx: Justifications for Admission: Justification of Admission Dx: Yes JEISON CONNOR Sep 16, 2020 10:09
[2020-09-16] MEDS ORDERED: SEVOFLURANE 61 TO 120 MINUTES. IH ONE (10:22)
[2020-09-16] MEDS ORDERED: BUPIVACAINE MPF 0.5% 30 ML VIAL. ONE (10:42)
[2020-09-16] MEDS ORDERED: 0.9 % SODIUM CHLORIDE 20 ML VIAL. IJ ONE (10:42)
--- NOTE | 2020-09-16 10:49 | PDOC4 ---
Operative Note Operative Note Operative Note: Preoperative Diagnosis: Colon cancer at hepatic flexure Postoperative Diagnosis: Same Procedure: Right colectomy Surgeon: Elieser Agricultural Agent: Sulaiman WECLH Anesthesia: General EBL: 50 mL Specimen: Right colon to pathology Drains: Pierpont drain to subcutaneous incision Complications: None Indication: The patient is a 69-year-old gentleman who presented with abdominal pain. His evaluation has revealed a large tumor at the hepatic flexure consistent with a malignancy. He also appears to have widespread pulmonary and hepatic metastasis. Due to impending obstruction we recommend palliative resection of the tumor. The risks of surgery were discussed which include bleeding, infection, anastomotic leak, pain, visceral injury, anesthesia risk, potential need for additional surgery procedure. He understands and would like to proceed. Description: The patient was taken to the operating room and placed supine on the operating table. General anesthesia was performed. The abdomen was prepped with ChloraPrep and draped in a standard surgical manner. A vertical midline incision was made with a scalpel. Cautery dissection was carried through the fascia and peritoneum. The Omni retractor was used for the remainder of the case to facilitate exposure. The patient had approximately 750 cc of clear ascitic fluid which was suctioned. As expected there was a large tumor palpable in the hepatic flexure. The liver did demonstrate bilateral metastasis as noted on his prior evaluation. We began with a right colon resection. The lateral peritoneal attachments were divided freeing up the right colon. The attachments at the hepatic flexure were also mobilized. The bowel was then divided at the distal ileum with a VITA 75 stapling device. Similarly the mid transverse colon was divided with the VITA 75 stapler. The mesentery of the right colon was then dissected. Blood vessels were ligated with 2-0 Vicryl and divided. The LigaS ure device assisted with mesenteric dissection. The right colon was then excised and sent to pathology. Gross pathologic evaluation confirmed the large tumor in addition to several other polypoid mucosal lesions. A stapled [id number], functional end-to-end anastomosis was then developed. The stapler was introduced into both limbs of the bowel in the antimesenteric portion. The stapler was deployed creating the anastomosis. The common enterotomy was oversewn with 3-0 PDS. All of the staple lines were reinforced with 3-0 Vicryl in the seromuscular layer. The abdominal cavity was irrigated with saline which was suctioned. Hemostasis was good and no other abnormalities were identified. The fascia was reapproximated with 1 PDS. 1/4 inch Hugo drain was left in the subcutaneous space which exited inferiorly. The subcutaneous tissue was closed with 3-0 Vicryl and skin approximated with 4-0 Monocryl. A sterile dressing was then applied. The patient tolerated the procedure well and was sent to the recovery room in stable condition. At the end of the case all counts were correct. JOAQUÍN ZAMBRANO MD Sep 16, 2020 10:49
[2020-09-16] MEDS: NORMAL SALINE 36.7 ML, fentaNYL PF VIAL 250 MCG, BUPIVACAINE MPF 0.75% 8.3 ML in EPIDUR... EPID PRN ×3 (11:18→21:14)
[2020-09-16] MEDS ORDERED: IV RINGERS,LACTATED 1000ML 1,000 ML IV ONE (12:30)
--- NOTE | 2020-09-16 14:07 | PATHOLOGY ---
[facility] Accession Number: [id number] . 01 Material submitted: . PART A: hepatic flexure - HEPATIC FLEXURE MASS BIOPSY PART B: rectum - RECTAL POLYP . 01 Clinical history: . ABNORMAL GI IMAGING, ABD PAIN, COLON CA . 02 Diagnosis: A. Colon biopsies, hepatic flexure mass: - Colorectal adenocarcinoma, poorly differentiated. See comment. . B. Colorectal biopsies, rectal polyp: - Hyperplastic polyp. (JPM:luis felipe; 09/16/2020) S 09/16/2020 0911 Local . 02 Comment: Sections of the hepatic flexure mass biopsy reveal a malignant epithelial neoplasm. The tumor cells are largely present in solid nests which irregularly infiltrate an inflamed reactive stroma. The tumor does show focal glandular differentiation. The tumor cells possess enlarged rounded to ovoid nuclei containing prominent nucleoli. Mitotic figures are readily demonstrated. There is a single segment of tubular adenoma present. The morphologic findings are supportive of the diagnosis of a poorly differentiated colorectal adenocarcinoma. . Sections of the rectal biopsy reveal a hyperplastic polyp. There are no adenomatous changes or evidence of malignancy. . The case is also examined by Dr. Bhakta, who concurs with the diagnosis. The results are reported to Dr. Mon on 09/16/2020 at 10:30 AM. (JPM:luis felipe; 09/16/2020) . 02 Electronically signed: . Krishna King MD, Pathologist NPI- [id number] . 01 Gross description: . A. Received in formalin labeled "HarrisJuan Daniel hepatic flexure mass biopsy" are multiple naidu-brown soft tissue fragments measuring in aggregate 1.1 x 0.5 x 0.3 cm. The specimen is submitted entirely in A1. . B. Received in formalin labeled "Juan Daniel Harris, rectal polyp" are 2 naidu-brown soft tissue fragments measuring 0.3 x 0.3 x 0.2 cm and 0.3 x 0.2 x 0.2 cm. The specimen is submitted entirely in B1. ([facility]; 09/15/2020) GZA/GZA 09/15/2020 1124 Local . 02 Pathologist provided ICD-10: C18.4, K62.1 . 02 CPT . 596965, 139603 Specimen Comment: A courtesy copy of this report has been sent to [phone], [phone] Specimen Comment: [id number], Specimen Comment: Report sent to ,DR BLAKE / DR WALKER Specimen Comment: A duplicate report has been generated due to demographic updates. Performed at: [facility] [address] [id number] MD Darin Valencia MD Phone: [phone] Performed at: 02 [facility] [address] [place], [place] [id number] MD Kirshna King MD Phone: [phone]
[2020-09-16] MEDS: INSULIN GLARGINE SYRINGE. SQ SCH (19:54)
[2020-09-17] MEDS: NORMAL SALINE 36.7 ML, fentaNYL PF VIAL 250 MCG, BUPIVACAINE MPF 0.75% 8.3 ML in EPIDUR... EPID PRN ×5 (02:17→23:37)
[2020-09-17 03:28] VITALS: BP 112/61
[2020-09-17 07:00] VITALS: BP 102/57
[2020-09-17] MEDS: INSULIN LISPRO 300 UNITS/3 ML VIAL. SQ SCH ×3 (08:00→17:00)
[2020-09-17 08:14] LABS: BASO % 1 % (0-3); EOS % 0 % (0-3); HEMATOCRIT 28.2 % (39.0-53.0); HEMOGLOBIN 8.8 g/dL (13.0-17.5); LYMPH % 22 % (24-48); MEAN CORPUSCULAR HEMOGLOBIN 24 pg (25-35); MEAN CORPUSCULAR HGB CONC 31 g/dL (31-37); MEAN CORPUSCULAR VOLUME 76 fL (79-100); MONO # 0.6 x10^3/uL (0.0-1.1); MONO % 7 % (0-9); NEUT # 6.6 x10^3/uL (1.8-7.7); NEUT % 71 % (31-73); PLATELET COUNT 283 x10^3/uL (140-400); WHITE BLOOD COUNT 9.3 x10^3/uL (4.0-11.0)
[2020-09-17] MEDS: AMINO AC 3%/ELECTROLYTE/GLYCER 1,000 ML IV SCH ×2 (08:27→21:09)
[2020-09-17] MEDS: IV RINGERS,LACTATED 1000ML 1,000 ML IV SCH ×2 (08:28→21:00)
[2020-09-17 08:48] LABS: CALCIUM 7.9 mg/dL (8.5-10.1); CREATININE 1.4 mg/dL (0.7-1.3); GFR 60.8; POTASSIUM 4.7 mmol/L (3.5-5.1)
--- NOTE | 2020-09-17 08:55 | PDOC ---
[facility] PROGRESS NOTE Date of Service DOS: DATE: 09/17/20 TIME: 08:53 Chief Complaint Chief Complaint Colon cancer Anemia NITESH Vasomotor nephropathy DM2 with hyperglycemia Severe malnutrition History of Present Illness History of Present Illness Patient is 69-year-old male with past medical history DM2, who presents to the ER with complaints of worsening diffuse abdominal pain for the past 5 months. He reports aching/gnawing pain, 8/10. He has associated decreased appetite, intermittent constipation, and intermittent diarrhea. He notes roughly 30 pound unintentional weight loss over this time. He denies any specific aggravating or alleviating symptoms. He did have an appointment earlier this month for CT abdomen that he missed, and was rescheduled for September. He came to the ED due to worsening of his symptoms. CT abdomen pelvis obtained on admission showed findings concerning for malignancy of the colon. Will admit patient for further medical management. 09/13 Patient seen and examined Discussed with RN Discussed with case management Patient is comfortable and was resting when we seen him 09/14 Patient seen and examined Chart reviewed Discussed with RN Discussed with case management Patient is comfortable 09/15 Patient seen and examined Chart reviewed Discussed with RN Discussed with case management Patient is comfortable 09/17 Patient seen and examined Chart reviewed Discussed with RN Discussed with case management Patient is comfortable and was resting when we seen him Vitals/I&O Vitals/I&O: Vital Signs Date Time Temp Pulse Resp B/P (MAP) Pulse Ox O2 Delivery O2 Flow Rate FiO2 09/17/20 07:00 98.4 77 16 102/57 (72) 100 Nasal Cannula 3.0 98.4 I & O 09/16/20 09/16/20 09/17/20 15:00 23:00 07:00 Intake Total 2050 ml 1590 ml 96.0 ml Output Total 700 ml 800 ml Balance 1350 ml 1590 ml -704.0 ml Physical Exam General: Alert, Oriented X3 Heart: Regular rate, Normal S1, Normal S2 Lungs: Clear Abdomen: Normal bowel sounds, Soft, No hepatosplenomegaly Extremities: No clubbing, No cyanosis Skin: No rashes, Other (no itching) Labs Labs: Laboratory Tests Test 09/16/20 11:26 09/16/20 16:20 09/16/20 19:54 09/16/20 20:25 Glucose (Fingerstick) 190 mg/dL (70-99) 187 mg/dL (70-99) 156 mg/dL (70-99) 187 mg/dL (70-99) Test 09/17/20 06:55 09/17/20 08:20 White Blood Count 9.3 x10^3/uL (4.0-11.0) Red Blood Count 3.70 x10^6/uL (4.30-5.70) Hemoglobin 8.8 g/dL (13.0-17.5) Hematocrit 28.2 % (39.0-53.0) Mean Corpuscular Volume 76 fL (79-100) Mean Corpuscular Hemoglobin 24 pg (25-35) Mean Corpuscular Hemoglobin Concent 31 g/dL (31-37) Red Cell Distribution Width 16.0 % (11.5-14.5) Platelet Count 283 x10^3/uL (140-400) Neutrophils (%) (Auto) 71 % (31-73) Lymphocytes (%) (Auto) 22 % (24-48) Monocytes (%) (Auto) 7 % (0-9) Eosinophils (%) (Auto) 0 % (0-3) Basophils (%) (Auto) 1 % (0-3) Neutrophils # (Auto) 6.6 x10^3/uL (1.8-7.7) Lymphocytes # (Auto) 2.0 x10^3/uL (1.0-4.8) Monocytes # (Auto) 0.6 x10^3/uL (0.0-1.1) Eosinophils # (Auto) 0.0 x10^3/uL (0.0-0.7) Basophils # (Auto) 0.0 x10^3/uL (0.0-0.2) Glucose (Fingerstick) 119 mg/dL (70-99) Review of Systems Review of Systems: Denies headache, changes in vision, or numbness Denies itching or rashes Assessment and Plan Assessmemt and Plan Problems Medical Problems: (1) Abdominal pain Status: Acute (2) Cancer of ascending colon metastatic to intra-abdominal lymph node Status: Acute Assessment: Colon cancer Anemia NITESH Vasomotor nephropathy DM2 with hyperglycemia Severe malnutrition Plan: Continue ppn Pain meds Full code DVT prophylaxis Home meds Comment Review of Relevant I have reviewed the following items neil (where applicable) has been applied. Medications: Current Medications Medications (Trade) Dose Ordered Sig/Syeda Route PRN Reason Start Time Stop Time Status Last Admin Dose Admin Sodium Chloride 36.7 ml/Fentanyl Citrate 250 mcg/ Bupivacaine HCl 8.3 ml/Epidural Dosage Infused (Pha) 50 ml @ 0 mls/hr CONT PRN EPID SEE PROTOCOL TABLE 09/16/20 09:15 09/17/20 06:02 Ringer's Solution 1,000 ml @ 75 mls/hr 1X ONCE IV 09/16/20 12:30 09/17/20 01:49 DC 09/16/20 12:06 Justifications for Admission Other Justification GI malignancy, anemia JOON LEBRON III DO Sep 17, 2020 08:55
--- NOTE | 2020-09-17 09:04 | PDOC ---
BÁRBARA COLEY [employer] 09/17/20 0904: SURGICAL PROGRESS NOTE DATE: 09/17/20 TIME: 09:02 Subjective pain minimal no nausea no flatus Vital Signs Vital Signs Date Time Temp Pulse Resp B/P (MAP) Pulse Ox O2 Delivery O2 Flow Rate FiO2 09/17/20 07:00 98.4 77 16 102/57 (72) 100 Nasal Cannula 3.0 98.4 I&O Intake and Output 09/17/20 07:00 Intake Total 3736.0 ml Output Total 1500 ml Balance 2236.0 ml Intake Oral 440 ml IV Total 3296.0 ml Output Urine Total 1450 ml Estimated Blood Loss 50 ml # Bowel Movements 1 General: Alert, Oriented X3, Cooperative Abdomen: Soft, Other (ND, dressing dry) Labs Laboratory Tests Test 09/15/20 11:08 09/15/20 16:07 09/15/20 20:18 09/16/20 06:45 Glucose (Fingerstick) 279 mg/dL (70-99) 140 mg/dL (70-99) 120 mg/dL (70-99) White Blood Count 6.0 x10^3/uL (4.0-11.0) Red Blood Count 3.69 x10^6/uL (4.30-5.70) Hemoglobin 8.8 g/dL (13.0-17.5) Hematocrit 28.0 % (39.0-53.0) Mean Corpuscular Volume 76 fL (79-100) Mean Corpuscular Hemoglobin 24 pg (25-35) Mean Corpuscular Hemoglobin Concent 31 g/dL (31-37) Red Cell Distribution Width 15.6 % (11.5-14.5) Platelet Count 338 x10^3/uL (140-400) Neutrophils (%) (Auto) 59 % (31-73) Lymphocytes (%) (Auto) 32 % (24-48) Monocytes (%) (Auto) 6 % (0-9) Eosinophils (%) (Auto) 3 % (0-3) Basophils (%) (Auto) 1 % (0-3) Neutrophils # (Auto) 3.5 x10^3/uL (1.8-7.7) Lymphocytes # (Auto) 1.9 x10^3/uL (1.0-4.8) Monocytes # (Auto) 0.3 x10^3/uL (0.0-1.1) Eosinophils # (Auto) 0.2 x10^3/uL (0.0-0.7) Basophils # (Auto) 0.0 x10^3/uL (0.0-0.2) Sodium Level 142 mmol/L (136-145) Potassium Level 4.4 mmol/L (3.5-5.1) Chloride Level 107 mmol/L (98-107) Carbon Dioxide Level 27 mmol/L (21-32) Anion Gap 8 (6-14) Blood Urea Nitrogen 18 mg/dL (8-26) Creatinine 1.4 mg/dL (0.7-1.3) Estimated GFR (Cockcroft-Gault) 60.8 Glucose Level 146 mg/dL (70-99) Calcium Level 8.2 mg/dL (8.5-10.1) Test 09/16/20 07:11 09/16/20 11:26 09/16/20 16:20 09/16/20 19:54 Glucose (Fingerstick) 130 mg/dL (70-99) 190 mg/dL (70-99) 187 mg/dL (70-99) 156 mg/dL (70-99) Test 09/16/20 20:25 09/17/20 06:55 09/17/20 08:20 Glucose (Fingerstick) 187 mg/dL (70-99) 119 mg/dL (70-99) White Blood Count 9.3 x10^3/uL (4.0-11.0) Red Blood Count 3.70 x10^6/uL (4.30-5.70) Hemoglobin 8.8 g/dL (13.0-17.5) Hematocrit 28.2 % (39.0-53.0) Mean Corpuscular Volume 76 fL (79-100) Mean Corpuscular Hemoglobin 24 pg (25-35) Mean Corpuscular Hemoglobin Concent 31 g/dL (31-37) Red Cell Distribution Width 16.0 % (11.5-14.5) Platelet Count 283 x10^3/uL (140-400) Neutrophils (%) (Auto) 71 % (31-73) Lymphocytes (%) (Auto) 22 % (24-48) Monocytes (%) (Auto) 7 % (0-9) Eosinophils (%) (Auto) 0 % (0-3) Basophils (%) (Auto) 1 % (0-3) Neutrophils # (Auto) 6.6 x10^3/uL (1.8-7.7) Lymphocytes # (Auto) 2.0 x10^3/uL (1.0-4.8) Monocytes # (Auto) 0.6 x10^3/uL (0.0-1.1) Eosinophils # (Auto) 0.0 x10^3/uL (0.0-0.7) Basophils # (Auto) 0.0 x10^3/uL (0.0-0.2) Sodium Level 139 mmol/L (136-145) Potassium Level 4.7 mmol/L (3.5-5.1) Chloride Level 107 mmol/L (98-107) Carbon Dioxide Level 25 mmol/L (21-32) Anion Gap 7 (6-14) Blood Urea Nitrogen 22 mg/dL (8-26) Creatinine 1.4 mg/dL (0.7-1.3) Estimated GFR (Cockcroft-Gault) 60.8 Glucose Level 129 mg/dL (70-99) Calcium Level 7.9 mg/dL (8.5-10.1) Laboratory Tests Test 09/16/20 11:26 09/16/20 16:20 09/16/20 19:54 09/16/20 20:25 Glucose (Fingerstick) 190 mg/dL (70-99) 187 mg/dL (70-99) 156 mg/dL (70-99) 187 mg/dL (70-99) Test 09/17/20 06:55 09/17/20 08:20 White Blood Count 9.3 x10^3/uL (4.0-11.0) Red Blood Count 3.70 x10^6/uL (4.30-5.70) Hemoglobin 8.8 g/dL (13.0-17.5) Hematocrit 28.2 % (39.0-53.0) Mean Corpuscular Volume 76 fL (79-100) Mean Corpuscular Hemoglobin 24 pg (25-35) Mean Corpuscular Hemoglobin Concent 31 g/dL (31-37) Red Cell Distribution Width 16.0 % (11.5-14.5) Platelet Count 283 x10^3/uL (140-400) Neutrophils (%) (Auto) 71 % (31-73) Lymphocytes (%) (Auto) 22 % (24-48) Monocytes (%) (Auto) 7 % (0-9) Eosinophils (%) (Auto) 0 % (0-3) Basophils (%) (Auto) 1 % (0-3) Neutrophils # (Auto) 6.6 x10^3/uL (1.8-7.7) Lymphocytes # (Auto) 2.0 x10^3/uL (1.0-4.8) Monocytes # (Auto) 0.6 x10^3/uL (0.0-1.1) Eosinophils # (Auto) 0.0 x10^3/uL (0.0-0.7) Basophils # (Auto) 0.0 x10^3/uL (0.0-0.2) Sodium Level 139 mmol/L (136-145) Potassium Level 4.7 mmol/L (3.5-5.1) Chloride Level 107 mmol/L (98-107) Carbon Dioxide Level 25 mmol/L (21-32) Anion Gap 7 (6-14) Blood Urea Nitrogen 22 mg/dL (8-26) Creatinine 1.4 mg/dL (0.7-1.3) Estimated GFR (Cockcroft-Gault) 60.8 Glucose Level 129 mg/dL (70-99) Calcium Level 7.9 mg/dL (8.5-10.1) Glucose (Fingerstick) 119 mg/dL (70-99) Problem List Problems Medical Problems: (1) Abdominal pain Status: Acute (2) Cancer of ascending colon metastatic to intra-abdominal lymph node Status: Acute Assessment/Plan s/p right colon await bowel function Justicifation of Admission Dx: Justifications for Admission: Justification of Admission Dx: Yes JERRI BERGER MD 09/17/20 1114: SURGICAL PROGRESS NOTE Assessment/Plan Agree with Stanley's assessment and plan BÁRBARA COLEY APRN Sep 17, 2020 09:04 JERRI BERGER MD Sep 17, 2020 11:14
[2020-09-17 11:00] VITALS: BP 120/64
[2020-09-17 15:00] VITALS: BP 121/70
[2020-09-17 19:20] VITALS: BP 136/63
[2020-09-17] MEDS: INSULIN GLARGINE SYRINGE. SQ SCH (21:00)
[2020-09-17] MEDS: HYDROcodone/APAP 5/325MG 1 TAB TABLET PO PRN (21:13)
[2020-09-17 22:55] VITALS: BP 106/61
[2020-09-18 03:10] VITALS: BP 113/61
[2020-09-18] MEDS: NORMAL SALINE 36.7 ML, fentaNYL PF VIAL 250 MCG, BUPIVACAINE MPF 0.75% 8.3 ML in EPIDUR... EPID PRN ×4 (04:55→21:04)
[2020-09-18 07:00] VITALS: BP 108/60
[2020-09-18] MEDS: INSULIN LISPRO 300 UNITS/3 ML VIAL. SQ SCH ×3 (08:00→17:00)
[2020-09-18 08:24] LABS: BASO # 0.1 x10^3/uL (0.0-0.2); BASO % 1 % (0-3); EOS # 0.1 x10^3/uL (0.0-0.7); EOS % 1 % (0-3); HEMATOCRIT 28.4 % (39.0-53.0); HEMOGLOBIN 8.9 g/dL (13.0-17.5); LYMPH # 1.8 x10^3/uL (1.0-4.8); LYMPH % 24 % (24-48); MEAN CORPUSCULAR HEMOGLOBIN 24 pg (25-35); MEAN CORPUSCULAR HGB CONC 31 g/dL (31-37); MEAN CORPUSCULAR VOLUME 77 fL (79-100); MONO # 0.5 x10^3/uL (0.0-1.1); MONO % 6 % (0-9); NEUT # 5.1 x10^3/uL (1.8-7.7); NEUT % 68 % (31-73); PLATELET COUNT 263 x10^3/uL (140-400); RED CELL DISTRIBUTION WIDTH 15.4 % (11.5-14.5); WHITE BLOOD COUNT 7.5 x10^3/uL (4.0-11.0)
[2020-09-18] MEDS: IV RINGERS,LACTATED 1000ML 1,000 ML IV SCH (08:25)
[2020-09-18 08:57] LABS: CALCIUM 8.2 mg/dL (8.5-10.1); CREATININE 1.6 mg/dL (0.7-1.3); GFR 52.1; POTASSIUM 5.2 mmol/L (3.5-5.1)
--- NOTE | 2020-09-18 09:39 | PDOC ---
[employer] PROGRESS NOTE Date of Service DOS: DATE: 09/18/20 TIME: 09:37 Chief Complaint Chief Complaint Colon cancer Anemia NITESH Vasomotor nephropathy DM2 with hyperglycemia Severe malnutrition History of Present Illness History of Present Illness Patient is 69-year-old male with past medical history DM2, who presents to the ER with complaints of worsening diffuse abdominal pain for the past 5 months. He reports aching/gnawing pain, 8/10. He has associated decreased appetite, intermittent constipation, and intermittent diarrhea. He notes roughly 30 pound unintentional weight loss over this time. He denies any specific aggravating or alleviating symptoms. He did have an appointment earlier this month for CT abdomen that he missed, and was rescheduled for September. He came to the ED due to worsening of his symptoms. CT abdomen pelvis obtained on admission showed findings concerning for malignancy of the colon. Will admit patient for further medical management. 09/13 Patient seen and examined Discussed with RN Discussed with case management Patient is comfortable and was resting when we seen him 09/14 Patient seen and examined Chart reviewed Discussed with RN Discussed with case management Patient is comfortable 09/15 Patient seen and examined Chart reviewed Discussed with RN Discussed with case management Patient is comfortable 09/17 Patient seen and examined Chart reviewed Discussed with RN Discussed with case management Patient is comfortable and was resting when we seen him 09/18 Patient seen and examined Chart reviewed Discussed with RN Patient states pain is 6/10 in severity Vitals/I&O Vitals/I&O: Vital Signs Date Time Temp Pulse Resp B/P (MAP) Pulse Ox O2 Delivery O2 Flow Rate FiO2 09/18/20 07:38 Nasal Cannula 3.0 09/18/20 07:00 98.2 66 14 108/60 (76) 100 98.2 I & O 09/17/20 09/17/20 09/18/20 15:00 23:00 07:00 Intake Total 0 ml 0 ml 0 ml Output Total 350 ml 450 ml Balance 0 ml -350 ml -450 ml Physical Exam General: Alert, Oriented X3, Cooperative Heart: Regular rate, Normal S1, Normal S2 Lungs: Clear Abdomen: Soft, Other (ND, dressing dry) Extremities: No clubbing, No cyanosis Skin: No rashes, Other (no itching) Labs Labs: Laboratory Tests Test 09/17/20 12:51 09/17/20 17:42 09/17/20 20:49 09/18/20 07:05 Glucose (Fingerstick) 142 mg/dL (70-99) 158 mg/dL (70-99) 149 mg/dL (70-99) White Blood Count 7.5 x10^3/uL (4.0-11.0) Red Blood Count 3.70 x10^6/uL (4.30-5.70) Hemoglobin 8.9 g/dL (13.0-17.5) Hematocrit 28.4 % (39.0-53.0) Mean Corpuscular Volume 77 fL (79-100) Mean Corpuscular Hemoglobin 24 pg (25-35) Mean Corpuscular Hemoglobin Concent 31 g/dL (31-37) Red Cell Distribution Width 15.4 % (11.5-14.5) Platelet Count 263 x10^3/uL (140-400) Neutrophils (%) (Auto) 68 % (31-73) Lymphocytes (%) (Auto) 24 % (24-48) Monocytes (%) (Auto) 6 % (0-9) Eosinophils (%) (Auto) 1 % (0-3) Basophils (%) (Auto) 1 % (0-3) Neutrophils # (Auto) 5.1 x10^3/uL (1.8-7.7) Lymphocytes # (Auto) 1.8 x10^3/uL (1.0-4.8) Monocytes # (Auto) 0.5 x10^3/uL (0.0-1.1) Eosinophils # (Auto) 0.1 x10^3/uL (0.0-0.7) Basophils # (Auto) 0.1 x10^3/uL (0.0-0.2) Sodium Level 137 mmol/L (136-145) Potassium Level 5.2 mmol/L (3.5-5.1) Chloride Level 106 mmol/L (98-107) Carbon Dioxide Level 23 mmol/L (21-32) Anion Gap 8 (6-14) Blood Urea Nitrogen 27 mg/dL (8-26) Creatinine 1.6 mg/dL (0.7-1.3) Estimated GFR (Cockcroft-Gault) 52.1 Glucose Level 144 mg/dL (70-99) Calcium Level 8.2 mg/dL (8.5-10.1) Test 09/18/20 07:18 Glucose (Fingerstick) 145 mg/dL (70-99) Review of Systems Review of Systems: Denies headache, changes in vision, or numbness Denies itching or rashes Assessment and Plan Assessmemt and Plan Problems Medical Problems: (1) Abdominal pain Status: Acute (2) Cancer of ascending colon metastatic to intra-abdominal lymph node Status: Acute Assessment: Colon cancer Anemia NITESH Vasomotor nephropathy DM2 with hyperglycemia Severe malnutrition Plan: Pain meds Trend labs Continue ppn Full code DVT prophylaxis Home meds Comment Review of Relevant I have reviewed the following items neil (where applicable) has been applied. Justifications for Admission Other Justification GI malignancy, anemia JOON LEBRON III DO Sep 18, 2020 09:39
[2020-09-18] MEDS: AMINO AC 3%/ELECTROLYTE/GLYCER 1,000 ML IV SCH ×2 (10:16→23:46)
[2020-09-18 11:00] VITALS: BP 130/62
--- NOTE | 2020-09-18 12:09 | PDOC ---
BÁRBARA COLEY [employer] 09/18/20 1209: SURGICAL PROGRESS NOTE DATE: 09/18/20 TIME: 12:08 Subjective resting pain managed no flatus today Vital Signs Vital Signs Date Time Temp Pulse Resp B/P (MAP) Pulse Ox O2 Delivery O2 Flow Rate FiO2 09/18/20 11:00 98.3 66 14 130/62 (84) 100 Nasal Cannula 3.0 98.3 I&O Intake and Output 09/18/20 07:00 Intake Total 0 ml Output Total 800 ml Balance -800 ml Intake Oral 0 ml Output Urine Total 800 ml General: Alert, Oriented X3, Cooperative Abdomen: Soft, Other (dressing dry, incisional TTP) Labs Laboratory Tests Test 09/16/20 16:20 09/16/20 19:54 09/16/20 20:25 09/17/20 06:55 Glucose (Fingerstick) 187 mg/dL (70-99) 156 mg/dL (70-99) 187 mg/dL (70-99) White Blood Count 9.3 x10^3/uL (4.0-11.0) Red Blood Count 3.70 x10^6/uL (4.30-5.70) Hemoglobin 8.8 g/dL (13.0-17.5) Hematocrit 28.2 % (39.0-53.0) Mean Corpuscular Volume 76 fL (79-100) Mean Corpuscular Hemoglobin 24 pg (25-35) Mean Corpuscular Hemoglobin Concent 31 g/dL (31-37) Red Cell Distribution Width 16.0 % (11.5-14.5) Platelet Count 283 x10^3/uL (140-400) Neutrophils (%) (Auto) 71 % (31-73) Lymphocytes (%) (Auto) 22 % (24-48) Monocytes (%) (Auto) 7 % (0-9) Eosinophils (%) (Auto) 0 % (0-3) Basophils (%) (Auto) 1 % (0-3) Neutrophils # (Auto) 6.6 x10^3/uL (1.8-7.7) Lymphocytes # (Auto) 2.0 x10^3/uL (1.0-4.8) Monocytes # (Auto) 0.6 x10^3/uL (0.0-1.1) Eosinophils # (Auto) 0.0 x10^3/uL (0.0-0.7) Basophils # (Auto) 0.0 x10^3/uL (0.0-0.2) Sodium Level 139 mmol/L (136-145) Potassium Level 4.7 mmol/L (3.5-5.1) Chloride Level 107 mmol/L (98-107) Carbon Dioxide Level 25 mmol/L (21-32) Anion Gap 7 (6-14) Blood Urea Nitrogen 22 mg/dL (8-26) Creatinine 1.4 mg/dL (0.7-1.3) Estimated GFR (Cockcroft-Gault) 60.8 Glucose Level 129 mg/dL (70-99) Calcium Level 7.9 mg/dL (8.5-10.1) Test 09/17/20 08:20 09/17/20 12:51 09/17/20 17:42 09/17/20 20:49 Glucose (Fingerstick) 119 mg/dL (70-99) 142 mg/dL (70-99) 158 mg/dL (70-99) 149 mg/dL (70-99) Test 09/18/20 07:05 09/18/20 07:18 09/18/20 11:23 White Blood Count 7.5 x10^3/uL (4.0-11.0) Red Blood Count 3.70 x10^6/uL (4.30-5.70) Hemoglobin 8.9 g/dL (13.0-17.5) Hematocrit 28.4 % (39.0-53.0) Mean Corpuscular Volume 77 fL (79-100) Mean Corpuscular Hemoglobin 24 pg (25-35) Mean Corpuscular Hemoglobin Concent 31 g/dL (31-37) Red Cell Distribution Width 15.4 % (11.5-14.5) Platelet Count 263 x10^3/uL (140-400) Neutrophils (%) (Auto) 68 % (31-73) Lymphocytes (%) (Auto) 24 % (24-48) Monocytes (%) (Auto) 6 % (0-9) Eosinophils (%) (Auto) 1 % (0-3) Basophils (%) (Auto) 1 % (0-3) Neutrophils # (Auto) 5.1 x10^3/uL (1.8-7.7) Lymphocytes # (Auto) 1.8 x10^3/uL (1.0-4.8) Monocytes # (Auto) 0.5 x10^3/uL (0.0-1.1) Eosinophils # (Auto) 0.1 x10^3/uL (0.0-0.7) Basophils # (Auto) 0.1 x10^3/uL (0.0-0.2) Sodium Level 137 mmol/L (136-145) Potassium Level 5.2 mmol/L (3.5-5.1) Chloride Level 106 mmol/L (98-107) Carbon Dioxide Level 23 mmol/L (21-32) Anion Gap 8 (6-14) Blood Urea Nitrogen 27 mg/dL (8-26) Creatinine 1.6 mg/dL (0.7-1.3) Estimated GFR (Cockcroft-Gault) 52.1 Glucose Level 144 mg/dL (70-99) Calcium Level 8.2 mg/dL (8.5-10.1) Glucose (Fingerstick) 145 mg/dL (70-99) 149 mg/dL (70-99) Laboratory Tests Test 09/17/20 12:51 09/17/20 17:42 09/17/20 20:49 09/18/20 07:05 Glucose (Fingerstick) 142 mg/dL (70-99) 158 mg/dL (70-99) 149 mg/dL (70-99) White Blood Count 7.5 x10^3/uL (4.0-11.0) Red Blood Count 3.70 x10^6/uL (4.30-5.70) Hemoglobin 8.9 g/dL (13.0-17.5) Hematocrit 28.4 % (39.0-53.0) Mean Corpuscular Volume 77 fL (79-100) Mean Corpuscular Hemoglobin 24 pg (25-35) Mean Corpuscular Hemoglobin Concent 31 g/dL (31-37) Red Cell Distribution Width 15.4 % (11.5-14.5) Platelet Count 263 x10^3/uL (140-400) Neutrophils (%) (Auto) 68 % (31-73) Lymphocytes (%) (Auto) 24 % (24-48) Monocytes (%) (Auto) 6 % (0-9) Eosinophils (%) (Auto) 1 % (0-3) Basophils (%) (Auto) 1 % (0-3) Neutrophils # (Auto) 5.1 x10^3/uL (1.8-7.7) Lymphocytes # (Auto) 1.8 x10^3/uL (1.0-4.8) Monocytes # (Auto) 0.5 x10^3/uL (0.0-1.1) Eosinophils # (Auto) 0.1 x10^3/uL (0.0-0.7) Basophils # (Auto) 0.1 x10^3/uL (0.0-0.2) Sodium Level 137 mmol/L (136-145) Potassium Level 5.2 mmol/L (3.5-5.1) Chloride Level 106 mmol/L (98-107) Carbon Dioxide Level 23 mmol/L (21-32) Anion Gap 8 (6-14) Blood Urea Nitrogen 27 mg/dL (8-26) Creatinine 1.6 mg/dL (0.7-1.3) Estimated GFR (Cockcroft-Gault) 52.1 Glucose Level 144 mg/dL (70-99) Calcium Level 8.2 mg/dL (8.5-10.1) Test 09/18/20 07:18 09/18/20 11:23 Glucose (Fingerstick) 145 mg/dL (70-99) 149 mg/dL (70-99) Problem List Problems Medical Problems: (1) Abdominal pain Status: Acute (2) Cancer of ascending colon metastatic to intra-abdominal lymph node Status: Acute Assessment/Plan s/p resection await bowel function Justicifation of Admission Dx: Justifications for Admission: Justification of Admission Dx: Yes JERRI BERGER MD 09/18/20 1408: SURGICAL PROGRESS NOTE Assessment/Plan Patient appears to be progressing awaiting return of bowel function agree with Nikita assessment and plan BÁRBARA COLEY [employer] Sep 18, 2020 12:09 JERRI BERGER MD Sep 18, 2020 14:08
[2020-09-18 15:00] VITALS: BP 140/66
[2020-09-18 19:20] VITALS: BP 121/57
[2020-09-18] MEDS: INSULIN GLARGINE SYRINGE. SQ SCH (21:00)
[2020-09-18 23:07] VITALS: BP 148/70
[2020-09-19] MEDS: NORMAL SALINE 36.7 ML, fentaNYL PF VIAL 250 MCG, BUPIVACAINE MPF 0.75% 8.3 ML in EPIDUR... EPID PRN ×4 (02:00→18:29)
[2020-09-19 03:08] VITALS: BP 151/76
[2020-09-19 07:00] VITALS: BP 132/73
[2020-09-19] MEDS: INSULIN LISPRO 300 UNITS/3 ML VIAL. SQ SCH ×4 (08:00→16:59)
[2020-09-19 08:30] LABS: BASO % 1 % (0-3); EOS # 0.1 x10^3/uL (0.0-0.7); EOS % 1 % (0-3); HEMATOCRIT 27.6 % (39.0-53.0); HEMOGLOBIN 8.8 g/dL (13.0-17.5); LYMPH # 1.4 x10^3/uL (1.0-4.8); LYMPH % 20 % (24-48); MEAN CORPUSCULAR HEMOGLOBIN 24 pg (25-35); MEAN CORPUSCULAR HGB CONC 32 g/dL (31-37); MEAN CORPUSCULAR VOLUME 76 fL (79-100); MONO # 0.5 x10^3/uL (0.0-1.1); MONO % 7 % (0-9); NEUT # 5.2 x10^3/uL (1.8-7.7); NEUT % 72 % (31-73); PLATELET COUNT 295 x10^3/uL (140-400); RED BLOOD COUNT 3.66 x10^6/uL (4.30-5.70); RED CELL DISTRIBUTION WIDTH 15.6 % (11.5-14.5); WHITE BLOOD COUNT 7.2 x10^3/uL (4.0-11.0)
[2020-09-19 08:44] LABS: CALCIUM 8.4 mg/dL (8.5-10.1); CREATININE 1.3 mg/dL (0.7-1.3); GFR 66.2; POTASSIUM 5.4 mmol/L (3.5-5.1)
--- NOTE | 2020-09-19 10:33 | PDOC ---
[employer] PROGRESS NOTE Date of Service DOS: DATE: 09/19/20 TIME: 10:32 Chief Complaint Chief Complaint Colon cancer Anemia NITESH Vasomotor nephropathy DM2 with hyperglycemia Severe malnutrition History of Present Illness History of Present Illness Patient is 69-year-old male with past medical history DM2, who presents to the ER with complaints of worsening diffuse abdominal pain for the past 5 months. He reports aching/gnawing pain, 8/10. He has associated decreased appetite, intermittent constipation, and intermittent diarrhea. He notes roughly 30 pound unintentional weight loss over this time. He denies any specific aggravating or alleviating symptoms. He did have an appointment earlier this month for CT abdomen that he missed, and was rescheduled for September. He came to the ED due to worsening of his symptoms. CT abdomen pelvis obtained on admission showed findings concerning for malignancy of the colon. Will admit patient for further medical management. 09/13 Patient seen and examined Discussed with RN Discussed with case management Patient is comfortable and was resting when we seen him 09/14 Patient seen and examined Chart reviewed Discussed with RN Discussed with case management Patient is comfortable 09/15 Patient seen and examined Chart reviewed Discussed with RN Discussed with case management Patient is comfortable 09/17 Patient seen and examined Chart reviewed Discussed with RN Discussed with case management Patient is comfortable and was resting when we seen him 09/18 Patient seen and examined Chart reviewed Discussed with RN Patient states pain is 6/10 in severity 09/19 Patient seen and examined Chart reviewed Discussed with RN Patient is hungry but denies significant pain Vitals/I&O Vitals/I&O: Vital Signs Date Time Temp Pulse Resp B/P (MAP) Pulse Ox O2 Delivery O2 Flow Rate FiO2 09/19/20 07:37 Nasal Cannula 3.0 09/19/20 07:00 98.0 82 14 132/73 (92) 100 98.0 I & O 09/18/20 09/18/20 09/19/20 15:00 23:00 07:00 Output Total 1150 ml Balance -1150 ml Physical Exam General: Alert, Oriented X3, Cooperative Heart: Regular rate, Normal S1, Normal S2 Lungs: Clear Abdomen: Soft, Other (dressing dry, incisional TTP) Extremities: No clubbing, No cyanosis Skin: No rashes, Other (no itching) Labs Labs: Laboratory Tests Test 09/18/20 11:23 09/18/20 17:10 09/18/20 20:37 09/19/20 07:35 Glucose (Fingerstick) 149 mg/dL (70-99) 160 mg/dL (70-99) 163 mg/dL (70-99) White Blood Count 7.2 x10^3/uL (4.0-11.0) Red Blood Count 3.66 x10^6/uL (4.30-5.70) Hemoglobin 8.8 g/dL (13.0-17.5) Hematocrit 27.6 % (39.0-53.0) Mean Corpuscular Volume 76 fL (79-100) Mean Corpuscular Hemoglobin 24 pg (25-35) Mean Corpuscular Hemoglobin Concent 32 g/dL (31-37) Red Cell Distribution Width 15.6 % (11.5-14.5) Platelet Count 295 x10^3/uL (140-400) Neutrophils (%) (Auto) 72 % (31-73) Lymphocytes (%) (Auto) 20 % (24-48) Monocytes (%) (Auto) 7 % (0-9) Eosinophils (%) (Auto) 1 % (0-3) Basophils (%) (Auto) 1 % (0-3) Neutrophils # (Auto) 5.2 x10^3/uL (1.8-7.7) Lymphocytes # (Auto) 1.4 x10^3/uL (1.0-4.8) Monocytes # (Auto) 0.5 x10^3/uL (0.0-1.1) Eosinophils # (Auto) 0.1 x10^3/uL (0.0-0.7) Basophils # (Auto) 0.0 x10^3/uL (0.0-0.2) Sodium Level 137 mmol/L (136-145) Potassium Level 5.4 mmol/L (3.5-5.1) Chloride Level 105 mmol/L (98-107) Carbon Dioxide Level 25 mmol/L (21-32) Anion Gap 7 (6-14) Blood Urea Nitrogen 26 mg/dL (8-26) Creatinine 1.3 mg/dL (0.7-1.3) Estimated GFR (Cockcroft-Gault) 66.2 Glucose Level 164 mg/dL (70-99) Calcium Level 8.4 mg/dL (8.5-10.1) Test 09/19/20 07:40 Glucose (Fingerstick) 167 mg/dL (70-99) Review of Systems Review of Systems: Denies headache, changes in vision, or numbness Denies itching or rashes Assessment and Plan Assessmemt and Plan Problems Medical Problems: (1) Abdominal pain Status: Acute (2) Cancer of ascending colon metastatic to intra-abdominal lymph node Status: Acute Assessment: Colon cancer Anemia NITESH Vasomotor nephropathy DM2 with hyperglycemia Severe malnutrition Plan: Continue ppn Pain meds Trend labs Full code Home meds DVT prophylaxis Comment Review of Relevant I have reviewed the following items neil (where applicable) has been applied. Justifications for Admission Other Justification GI malignancy, anemia JOON LEBRON III DO Sep 19, 2020 10:33
[2020-09-19 11:00] VITALS: BP 128/73
--- NOTE | 2020-09-19 11:57 | PDOC ---
BÁRBARA COLEY [employer] 09/19/20 1157: SURGICAL PROGRESS NOTE DATE: 09/19/20 TIME: 11:55 Subjective wanting some milk no flatus pain to right abdomen, has not been up walking Vital Signs Vital Signs Date Time Temp Pulse Resp B/P (MAP) Pulse Ox O2 Delivery O2 Flow Rate FiO2 09/19/20 11:00 97.7 84 12 128/73 (91) 99 Nasal Cannula 3.0 97.7 I&O Intake and Output 09/19/20 07:00 Output Total 1150 ml Balance -1150 ml Output Urine Total 1150 ml General: Alert, Oriented X3, Cooperative Abdomen: Soft, Other (dressing dry) Labs Laboratory Tests Test 09/17/20 12:51 09/17/20 17:42 09/17/20 20:49 09/18/20 07:05 Glucose (Fingerstick) 142 mg/dL (70-99) 158 mg/dL (70-99) 149 mg/dL (70-99) White Blood Count 7.5 x10^3/uL (4.0-11.0) Red Blood Count 3.70 x10^6/uL (4.30-5.70) Hemoglobin 8.9 g/dL (13.0-17.5) Hematocrit 28.4 % (39.0-53.0) Mean Corpuscular Volume 77 fL (79-100) Mean Corpuscular Hemoglobin 24 pg (25-35) Mean Corpuscular Hemoglobin Concent 31 g/dL (31-37) Red Cell Distribution Width 15.4 % (11.5-14.5) Platelet Count 263 x10^3/uL (140-400) Neutrophils (%) (Auto) 68 % (31-73) Lymphocytes (%) (Auto) 24 % (24-48) Monocytes (%) (Auto) 6 % (0-9) Eosinophils (%) (Auto) 1 % (0-3) Basophils (%) (Auto) 1 % (0-3) Neutrophils # (Auto) 5.1 x10^3/uL (1.8-7.7) Lymphocytes # (Auto) 1.8 x10^3/uL (1.0-4.8) Monocytes # (Auto) 0.5 x10^3/uL (0.0-1.1) Eosinophils # (Auto) 0.1 x10^3/uL (0.0-0.7) Basophils # (Auto) 0.1 x10^3/uL (0.0-0.2) Sodium Level 137 mmol/L (136-145) Potassium Level 5.2 mmol/L (3.5-5.1) Chloride Level 106 mmol/L (98-107) Carbon Dioxide Level 23 mmol/L (21-32) Anion Gap 8 (6-14) Blood Urea Nitrogen 27 mg/dL (8-26) Creatinine 1.6 mg/dL (0.7-1.3) Estimated GFR (Cockcroft-Gault) 52.1 Glucose Level 144 mg/dL (70-99) Calcium Level 8.2 mg/dL (8.5-10.1) Test 09/18/20 07:18 09/18/20 11:23 09/18/20 17:10 09/18/20 20:37 Glucose (Fingerstick) 145 mg/dL (70-99) 149 mg/dL (70-99) 160 mg/dL (70-99) 163 mg/dL (70-99) Test 09/19/20 07:35 09/19/20 07:40 09/19/20 11:17 White Blood Count 7.2 x10^3/uL (4.0-11.0) Red Blood Count 3.66 x10^6/uL (4.30-5.70) Hemoglobin 8.8 g/dL (13.0-17.5) Hematocrit 27.6 % (39.0-53.0) Mean Corpuscular Volume 76 fL (79-100) Mean Corpuscular Hemoglobin 24 pg (25-35) Mean Corpuscular Hemoglobin Concent 32 g/dL (31-37) Red Cell Distribution Width 15.6 % (11.5-14.5) Platelet Count 295 x10^3/uL (140-400) Neutrophils (%) (Auto) 72 % (31-73) Lymphocytes (%) (Auto) 20 % (24-48) Monocytes (%) (Auto) 7 % (0-9) Eosinophils (%) (Auto) 1 % (0-3) Basophils (%) (Auto) 1 % (0-3) Neutrophils # (Auto) 5.2 x10^3/uL (1.8-7.7) Lymphocytes # (Auto) 1.4 x10^3/uL (1.0-4.8) Monocytes # (Auto) 0.5 x10^3/uL (0.0-1.1) Eosinophils # (Auto) 0.1 x10^3/uL (0.0-0.7) Basophils # (Auto) 0.0 x10^3/uL (0.0-0.2) Sodium Level 137 mmol/L (136-145) Potassium Level 5.4 mmol/L (3.5-5.1) Chloride Level 105 mmol/L (98-107) Carbon Dioxide Level 25 mmol/L (21-32) Anion Gap 7 (6-14) Blood Urea Nitrogen 26 mg/dL (8-26) Creatinine 1.3 mg/dL (0.7-1.3) Estimated GFR (Cockcroft-Gault) 66.2 Glucose Level 164 mg/dL (70-99) Calcium Level 8.4 mg/dL (8.5-10.1) Glucose (Fingerstick) 167 mg/dL (70-99) 204 mg/dL (70-99) Laboratory Tests Test 09/18/20 17:10 09/18/20 20:37 09/19/20 07:35 09/19/20 07:40 Glucose (Fingerstick) 160 mg/dL (70-99) 163 mg/dL (70-99) 167 mg/dL (70-99) White Blood Count 7.2 x10^3/uL (4.0-11.0) Red Blood Count 3.66 x10^6/uL (4.30-5.70) Hemoglobin 8.8 g/dL (13.0-17.5) Hematocrit 27.6 % (39.0-53.0) Mean Corpuscular Volume 76 fL (79-100) Mean Corpuscular Hemoglobin 24 pg (25-35) Mean Corpuscular Hemoglobin Concent 32 g/dL (31-37) Red Cell Distribution Width 15.6 % (11.5-14.5) Platelet Count 295 x10^3/uL (140-400) Neutrophils (%) (Auto) 72 % (31-73) Lymphocytes (%) (Auto) 20 % (24-48) Monocytes (%) (Auto) 7 % (0-9) Eosinophils (%) (Auto) 1 % (0-3) Basophils (%) (Auto) 1 % (0-3) Neutrophils # (Auto) 5.2 x10^3/uL (1.8-7.7) Lymphocytes # (Auto) 1.4 x10^3/uL (1.0-4.8) Monocytes # (Auto) 0.5 x10^3/uL (0.0-1.1) Eosinophils # (Auto) 0.1 x10^3/uL (0.0-0.7) Basophils # (Auto) 0.0 x10^3/uL (0.0-0.2) Sodium Level 137 mmol/L (136-145) Potassium Level 5.4 mmol/L (3.5-5.1) Chloride Level 105 mmol/L (98-107) Carbon Dioxide Level 25 mmol/L (21-32) Anion Gap 7 (6-14) Blood Urea Nitrogen 26 mg/dL (8-26) Creatinine 1.3 mg/dL (0.7-1.3) Estimated GFR (Cockcroft-Gault) 66.2 Glucose Level 164 mg/dL (70-99) Calcium Level 8.4 mg/dL (8.5-10.1) Test 09/19/20 11:17 Glucose (Fingerstick) 204 mg/dL (70-99) Problem List Problems Medical Problems: (1) Abdominal pain Status: Acute (2) Cancer of ascending colon metastatic to intra-abdominal lymph node Status: Acute Assessment/Plan await bowel function increase activity Justicifation of Admission Dx: Justifications for Admission: Justification of Admission Dx: Yes JERRI BERGER MD 09/19/20 1308: SURGICAL PROGRESS NOTE Assessment/Plan Still no bowel activity awaiting return continue supportive care agree with Nikita assessment plan BÁRBARA COLEY APRN Sep 19, 2020 11:57 JERRI BERGER MD Sep 19, 2020 13:08
[2020-09-19] MEDS: AMINO AC 3%/ELECTROLYTE/GLYCER 1,000 ML IV SCH (11:58)
[2020-09-19 15:00] VITALS: BP 130/72
[2020-09-19 19:20] VITALS: BP 121/81
[2020-09-19] MEDS: INSULIN GLARGINE SYRINGE. SQ SCH (21:00)
[2020-09-19 23:25] VITALS: BP 106/61
[2020-09-20] MEDS: AMINO AC 3%/ELECTROLYTE/GLYCER 1,000 ML IV SCH ×2 (01:20→21:54)
[2020-09-20] MEDS: NORMAL SALINE 36.7 ML, fentaNYL PF VIAL 250 MCG, BUPIVACAINE MPF 0.75% 8.3 ML in EPIDUR... EPID PRN ×2 (01:51→06:26)
[2020-09-20 03:26] VITALS: BP 141/73
[2020-09-20 07:00] VITALS: BP 149/75
[2020-09-20 07:55] LABS: BASO % 1 % (0-3); EOS % 0 % (0-3); HEMATOCRIT 30.3 % (39.0-53.0); HEMOGLOBIN 9.3 g/dL (13.0-17.5); LYMPH # 0.9 x10^3/uL (1.0-4.8); LYMPH % 12 % (24-48); MEAN CORPUSCULAR HEMOGLOBIN 23 pg (25-35); MEAN CORPUSCULAR HGB CONC 31 g/dL (31-37); MEAN CORPUSCULAR VOLUME 76 fL (79-100); MONO # 0.4 x10^3/uL (0.0-1.1); MONO % 5 % (0-9); NEUT # 6.3 x10^3/uL (1.8-7.7); NEUT % 82 % (31-73); PLATELET COUNT 356 x10^3/uL (140-400); RED BLOOD COUNT 3.99 x10^6/uL (4.30-5.70); RED CELL DISTRIBUTION WIDTH 15.6 % (11.5-14.5); WHITE BLOOD COUNT 7.6 x10^3/uL (4.0-11.0)
[2020-09-20] MEDS: INSULIN LISPRO 300 UNITS/3 ML VIAL. SQ SCH ×3 (08:00→17:00)
[2020-09-20 08:14] LABS: CALCIUM 8.7 mg/dL (8.5-10.1); CREATININE 1.6 mg/dL (0.7-1.3); GFR 52.1; POTASSIUM 5.5 mmol/L (3.5-5.1)
[2020-09-20 10:26] VITALS: BP 171/87
--- NOTE | 2020-09-20 10:32 | NUR ---
SW following. Discussed with RN, pt from home alone, 3L, NPO, COVID-19 negative. Awaiting bowel function and increasing activity (PT ordered). SW will continue to follow.
--- NOTE | 2020-09-20 10:47 | NUR ---
Patient is refusing insulin until pain is under control.
--- NOTE | 2020-09-20 11:01 | PDOC ---
Date of Service: DATE: 09/20/20 TIME: 10:57 Objective: Objective: In a lot of pain when I saw - nurse giving Fentanyl and says "epidural is leaking." Remains NPO. Vital Signs: Vital Signs Date Time Temp Pulse Resp B/P (MAP) Pulse Ox O2 Delivery O2 Flow Rate FiO2 09/20/20 10:26 97.9 91 18 171/87 (115) 99 Nasal Cannula 3.0 97.9 Labs: Laboratory Tests Test 09/19/20 11:17 09/19/20 16:51 09/19/20 20:41 09/20/20 07:10 Glucose (Fingerstick) 204 mg/dL 149 mg/dL 154 mg/dL White Blood Count 7.6 x10^3/uL Red Blood Count 3.99 x10^6/uL Hemoglobin 9.3 g/dL Hematocrit 30.3 % Mean Corpuscular Volume 76 fL Mean Corpuscular Hemoglobin 23 pg Mean Corpuscular Hemoglobin Concent 31 g/dL Red Cell Distribution Width 15.6 % Platelet Count 356 x10^3/uL Neutrophils (%) (Auto) 82 % Lymphocytes (%) (Auto) 12 % Monocytes (%) (Auto) 5 % Eosinophils (%) (Auto) 0 % Basophils (%) (Auto) 1 % Neutrophils # (Auto) 6.3 x10^3/uL Lymphocytes # (Auto) 0.9 x10^3/uL Monocytes # (Auto) 0.4 x10^3/uL Eosinophils # (Auto) 0.0 x10^3/uL Basophils # (Auto) 0.0 x10^3/uL Sodium Level 136 mmol/L Potassium Level 5.5 mmol/L Chloride Level 102 mmol/L Carbon Dioxide Level 24 mmol/L Anion Gap 10 Blood Urea Nitrogen 30 mg/dL Creatinine 1.6 mg/dL Estimated GFR (Cockcroft-Gault) 52.1 Glucose Level 218 mg/dL Calcium Level 8.7 mg/dL Test 09/20/20 07:14 Glucose (Fingerstick) 216 mg/dL Imaging: Diagnosis: A. Colon biopsies, hepatic flexure mass: - Colorectal adenocarcinoma, poorly differentiated. See comment. . B. Colorectal biopsies, rectal polyp: - Hyperplastic polyp. PE: GEN: appears uncomfortable - nurse present NEURO/PSYCH: A & O 3 A/P: Metastatic adenocarcinoma s/p right colectomy 09/16 NITESH, hyperkalemia - per primary -- Pain issues today - nurse present and aware. Continue per surgery. Justicifation of Admission Dx: Justifications for Admission: Justification of Admission Dx: Yes JEISON CONNOR Sep 20, 2020 11:01
--- NOTE | 2020-09-20 11:17 | PDOC ---
[facility] 09/20/20 1117: SURGICAL PROGRESS NOTE DATE: 09/20/20 TIME: 11:12 Subjective abdominal pain no flatus possible issues with epidural Vital Signs Vital Signs Date Time Temp Pulse Resp B/P (MAP) Pulse Ox O2 Delivery O2 Flow Rate FiO2 09/20/20 10:26 97.9 91 18 171/87 (115) 99 Nasal Cannula 3.0 97.9 I&O Intake and Output 09/20/20 07:00 Output Total 850 ml Balance -850 ml Output Urine Total 850 ml PATIENT HAS A SWARTZ: Yes General: Cooperative, Other (in acute pain ) Abdomen: Other (deferred due to acute pain currently per his request ) Labs Laboratory Tests Test 09/18/20 11:23 09/18/20 17:10 09/18/20 20:37 09/19/20 07:35 Glucose (Fingerstick) 149 mg/dL (70-99) 160 mg/dL (70-99) 163 mg/dL (70-99) White Blood Count 7.2 x10^3/uL (4.0-11.0) Red Blood Count 3.66 x10^6/uL (4.30-5.70) Hemoglobin 8.8 g/dL (13.0-17.5) Hematocrit 27.6 % (39.0-53.0) Mean Corpuscular Volume 76 fL (79-100) Mean Corpuscular Hemoglobin 24 pg (25-35) Mean Corpuscular Hemoglobin Concent 32 g/dL (31-37) Red Cell Distribution Width 15.6 % (11.5-14.5) Platelet Count 295 x10^3/uL (140-400) Neutrophils (%) (Auto) 72 % (31-73) Lymphocytes (%) (Auto) 20 % (24-48) Monocytes (%) (Auto) 7 % (0-9) Eosinophils (%) (Auto) 1 % (0-3) Basophils (%) (Auto) 1 % (0-3) Neutrophils # (Auto) 5.2 x10^3/uL (1.8-7.7) Lymphocytes # (Auto) 1.4 x10^3/uL (1.0-4.8) Monocytes # (Auto) 0.5 x10^3/uL (0.0-1.1) Eosinophils # (Auto) 0.1 x10^3/uL (0.0-0.7) Basophils # (Auto) 0.0 x10^3/uL (0.0-0.2) Sodium Level 137 mmol/L (136-145) Potassium Level 5.4 mmol/L (3.5-5.1) Chloride Level 105 mmol/L (98-107) Carbon Dioxide Level 25 mmol/L (21-32) Anion Gap 7 (6-14) Blood Urea Nitrogen 26 mg/dL (8-26) Creatinine 1.3 mg/dL (0.7-1.3) Estimated GFR (Cockcroft-Gault) 66.2 Glucose Level 164 mg/dL (70-99) Calcium Level 8.4 mg/dL (8.5-10.1) Test 09/19/20 07:40 09/19/20 11:17 09/19/20 16:51 09/19/20 20:41 Glucose (Fingerstick) 167 mg/dL (70-99) 204 mg/dL (70-99) 149 mg/dL (70-99) 154 mg/dL (70-99) Test 09/20/20 07:10 09/20/20 07:14 09/20/20 11:04 White Blood Count 7.6 x10^3/uL (4.0-11.0) Red Blood Count 3.99 x10^6/uL (4.30-5.70) Hemoglobin 9.3 g/dL (13.0-17.5) Hematocrit 30.3 % (39.0-53.0) Mean Corpuscular Volume 76 fL (79-100) Mean Corpuscular Hemoglobin 23 pg (25-35) Mean Corpuscular Hemoglobin Concent 31 g/dL (31-37) Red Cell Distribution Width 15.6 % (11.5-14.5) Platelet Count 356 x10^3/uL (140-400) Neutrophils (%) (Auto) 82 % (31-73) Lymphocytes (%) (Auto) 12 % (24-48) Monocytes (%) (Auto) 5 % (0-9) Eosinophils (%) (Auto) 0 % (0-3) Basophils (%) (Auto) 1 % (0-3) Neutrophils # (Auto) 6.3 x10^3/uL (1.8-7.7) Lymphocytes # (Auto) 0.9 x10^3/uL (1.0-4.8) Monocytes # (Auto) 0.4 x10^3/uL (0.0-1.1) Eosinophils # (Auto) 0.0 x10^3/uL (0.0-0.7) Basophils # (Auto) 0.0 x10^3/uL (0.0-0.2) Sodium Level 136 mmol/L (136-145) Potassium Level 5.5 mmol/L (3.5-5.1) Chloride Level 102 mmol/L (98-107) Carbon Dioxide Level 24 mmol/L (21-32) Anion Gap 10 (6-14) Blood Urea Nitrogen 30 mg/dL (8-26) Creatinine 1.6 mg/dL (0.7-1.3) Estimated GFR (Cockcroft-Gault) 52.1 Glucose Level 218 mg/dL (70-99) Calcium Level 8.7 mg/dL (8.5-10.1) Glucose (Fingerstick) 216 mg/dL (70-99) 248 mg/dL (70-99) Laboratory Tests Test 09/19/20 11:17 09/19/20 16:51 09/19/20 20:41 09/20/20 07:10 Glucose (Fingerstick) 204 mg/dL (70-99) 149 mg/dL (70-99) 154 mg/dL (70-99) White Blood Count 7.6 x10^3/uL (4.0-11.0) Red Blood Count 3.99 x10^6/uL (4.30-5.70) Hemoglobin 9.3 g/dL (13.0-17.5) Hematocrit 30.3 % (39.0-53.0) Mean Corpuscular Volume 76 fL (79-100) Mean Corpuscular Hemoglobin 23 pg (25-35) Mean Corpuscular Hemoglobin Concent 31 g/dL (31-37) Red Cell Distribution Width 15.6 % (11.5-14.5) Platelet Count 356 x10^3/uL (140-400) Neutrophils (%) (Auto) 82 % (31-73) Lymphocytes (%) (Auto) 12 % (24-48) Monocytes (%) (Auto) 5 % (0-9) Eosinophils (%) (Auto) 0 % (0-3) Basophils (%) (Auto) 1 % (0-3) Neutrophils # (Auto) 6.3 x10^3/uL (1.8-7.7) Lymphocytes # (Auto) 0.9 x10^3/uL (1.0-4.8) Monocytes # (Auto) 0.4 x10^3/uL (0.0-1.1) Eosinophils # (Auto) 0.0 x10^3/uL (0.0-0.7) Basophils # (Auto) 0.0 x10^3/uL (0.0-0.2) Sodium Level 136 mmol/L (136-145) Potassium Level 5.5 mmol/L (3.5-5.1) Chloride Level 102 mmol/L (98-107) Carbon Dioxide Level 24 mmol/L (21-32) Anion Gap 10 (6-14) Blood Urea Nitrogen 30 mg/dL (8-26) Creatinine 1.6 mg/dL (0.7-1.3) Estimated GFR (Cockcroft-Gault) 52.1 Glucose Level 218 mg/dL (70-99) Calcium Level 8.7 mg/dL (8.5-10.1) Test 09/20/20 07:14 09/20/20 11:04 Glucose (Fingerstick) 216 mg/dL (70-99) 248 mg/dL (70-99) Problem List Problems Medical Problems: (1) Abdominal pain Status: Acute (2) Cancer of ascending colon metastatic to intra-abdominal lymph node Status: Acute Assessment/Plan still awaiting bowel function pain management, anesthesia to eval epidural cr, K, BS rising--as per [facility] Justicifation of Admission Dx: Justifications for Admission: Justification of Admission Dx: Yes JOAQUÍN ZAMBRANO MD 09/20/20 1148: SURGICAL PROGRESS NOTE Assessment/Plan Agree with above [facility] Sep 20, 2020 11:17 JOAQUÍN ZAMBRANO MD Sep 20, 2020 11:48
--- NOTE | 2020-09-20 12:07 | NUR ---
Patient refused insulin for the 2nd time today. He said he can only deal with one distraction at a time. I explained that his blood sugar is trending up but he still refused insulin. He is also demanding epidural be removed from his back.
[2020-09-20] MEDS ORDERED: IV NORMAL SALINE 1000ML BAG 1,000 ML IV SCH (16:45)
[2020-09-20] MEDS ORDERED: NALOXONE 0.4 MG/ML VIAL. IV PRN (16:45)
[2020-09-20 19:19] VITALS: BP 179/84
--- NOTE | 2020-09-20 19:39 | PDOC ---
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 He reports aching/gnawing pain, 8/10. He has associated decreased appetite, intermittent constipation, and intermittent diarrhea. He notes roughly 30 pound unintentional weight loss over this time. He denies any specific aggravating or alleviating symptoms. He did have an appointment earlier this month for CT abdomen that he missed, and was rescheduled for September. He came to the ED due to worsening of his symptoms. CT abdomen pelvis obtained on admission showed findings concerning for malignancy of the colon. Will admit patient for further medical management. 09/13 Patient seen and examined Discussed with RN Discussed with case management Patient is comfortable and was resting when we seen him 09/14 Patient seen and examined Chart reviewed Discussed with RN Discussed with case management Patient is comfortable 09/15 Patient seen and examined Chart reviewed Discussed with RN Discussed with case management Patient is comfortable 09/17 Patient seen and examined Chart reviewed Discussed with RN Discussed with case management Patient is comfortable and was resting when we seen him 09/18 Patient seen and examined Chart reviewed Discussed with RN Patient states pain is 6/10 in severity 09/19 Patient seen and examined Chart reviewed Discussed with RN Patient is hungry but denies significant pain 09/20 Patient quite uncomfortable during my visit. Pain management has been an issue and return of bowel function as well We will follow recommendations from medical surgical tech Oncology recommendations noted and greatly appreciated Vitals Vitals Vital Signs Date Time Temp Pulse Resp B/P (MAP) Pulse Ox O2 Delivery O2 Flow Rate FiO2 09/20/20 19:19 98.3 96 18 179/84 (115) 97 Room Air 98.3 09/20/20 10:26 3.0 Physical Exam General: Cooperative, Other (in acute pain ) Heart: Regular rate, Normal S1, Normal S2 Lungs: Clear Abdomen: Other (deferred due to acute pain currently per his request ) Extremities: No clubbing, No cyanosis Skin: No rashes, Other (no itching) Labs LABS Laboratory Tests Test 09/19/20 20:41 09/20/20 07:10 09/20/20 07:14 09/20/20 11:04 Glucose (Fingerstick) 154 mg/dL (70-99) 216 mg/dL (70-99) 248 mg/dL (70-99) White Blood Count 7.6 x10^3/uL (4.0-11.0) Red Blood Count 3.99 x10^6/uL (4.30-5.70) Hemoglobin 9.3 g/dL (13.0-17.5) Hematocrit 30.3 % (39.0-53.0) Mean Corpuscular Volume 76 fL (79-100) Mean Corpuscular Hemoglobin 23 pg (25-35) Mean Corpuscular Hemoglobin Concent 31 g/dL (31-37) Red Cell Distribution Width 15.6 % (11.5-14.5) Platelet Count 356 x10^3/uL (140-400) Neutrophils (%) (Auto) 82 % (31-73) Lymphocytes (%) (Auto) 12 % (24-48) Monocytes (%) (Auto) 5 % (0-9) Eosinophils (%) (Auto) 0 % (0-3) Basophils (%) (Auto) 1 % (0-3) Neutrophils # (Auto) 6.3 x10^3/uL (1.8-7.7) Lymphocytes # (Auto) 0.9 x10^3/uL (1.0-4.8) Monocytes # (Auto) 0.4 x10^3/uL (0.0-1.1) Eosinophils # (Auto) 0.0 x10^3/uL (0.0-0.7) Basophils # (Auto) 0.0 x10^3/uL (0.0-0.2) Sodium Level 136 mmol/L (136-145) Potassium Level 5.5 mmol/L (3.5-5.1) Chloride Level 102 mmol/L (98-107) Carbon Dioxide Level 24 mmol/L (21-32) Anion Gap 10 (6-14) Blood Urea Nitrogen 30 mg/dL (8-26) Creatinine 1.6 mg/dL (0.7-1.3) Estimated GFR (Cockcroft-Gault) 52.1 Glucose Level 218 mg/dL (70-99) Calcium Level 8.7 mg/dL (8.5-10.1) Test 09/20/20 16:19 Glucose (Fingerstick) 270 mg/dL (70-99) Review of Systems Review of Systems Review of systems pertinent as per HPI otherwise 14 point review of system is negative Assessment and Plan Assessmemt and Plan Problems Medical Problems: (1) Abdominal pain Status: Acute (2) Cancer of ascending colon metastatic to intra-abdominal lymph node Status: Acute Comment Review of Relevant I have reviewed the following items neil (where applicable) has been applied. Labs Laboratory Tests Test 09/18/20 20:37 09/19/20 07:35 09/19/20 07:40 09/19/20 11:17 Glucose (Fingerstick) 163 mg/dL (70-99) 167 mg/dL (70-99) 204 mg/dL (70-99) White Blood Count 7.2 x10^3/uL (4.0-11.0) Red Blood Count 3.66 x10^6/uL (4.30-5.70) Hemoglobin 8.8 g/dL (13.0-17.5) Hematocrit 27.6 % (39.0-53.0) Mean Corpuscular Volume 76 fL (79-100) Mean Corpuscular Hemoglobin 24 pg (25-35) Mean Corpuscular Hemoglobin Concent 32 g/dL (31-37) Red Cell Distribution Width 15.6 % (11.5-14.5) Platelet Count 295 x10^3/uL (140-400) Neutrophils (%) (Auto) 72 % (31-73) Lymphocytes (%) (Auto) 20 % (24-48) Monocytes (%) (Auto) 7 % (0-9) Eosinophils (%) (Auto) 1 % (0-3) Basophils (%) (Auto) 1 % (0-3) Neutrophils # (Auto) 5.2 x10^3/uL (1.8-7.7) Lymphocytes # (Auto) 1.4 x10^3/uL (1.0-4.8) Monocytes # (Auto) 0.5 x10^3/uL (0.0-1.1) Eosinophils # (Auto) 0.1 x10^3/uL (0.0-0.7) Basophils # (Auto) 0.0 x10^3/uL (0.0-0.2) Sodium Level 137 mmol/L (136-145) Potassium Level 5.4 mmol/L (3.5-5.1) Chloride Level 105 mmol/L (98-107) Carbon Dioxide Level 25 mmol/L (21-32) Anion Gap 7 (6-14) Blood Urea Nitrogen 26 mg/dL (8-26) Creatinine 1.3 mg/dL (0.7-1.3) Estimated GFR (Cockcroft-Gault) 66.2 Glucose Level 164 mg/dL (70-99) Calcium Level 8.4 mg/dL (8.5-10.1) Test 09/19/20 16:51 09/19/20 20:41 09/20/20 07:10 09/20/20 07:14 Glucose (Fingerstick) 149 mg/dL (70-99) 154 mg/dL (70-99) 216 mg/dL (70-99) White Blood Count 7.6 x10^3/uL (4.0-11.0) Red Blood Count 3.99 x10^6/uL (4.30-5.70) Hemoglobin 9.3 g/dL (13.0-17.5) Hematocrit 30.3 % (39.0-53.0) Mean Corpuscular Volume 76 fL (79-100) Mean Corpuscular Hemoglobin 23 pg (25-35) Mean Corpuscular Hemoglobin Concent 31 g/dL (31-37) Red Cell Distribution Width 15.6 % (11.5-14.5) Platelet Count 356 x10^3/uL (140-400) Neutrophils (%) (Auto) 82 % (31-73) Lymphocytes (%) (Auto) 12 % (24-48) Monocytes (%) (Auto) 5 % (0-9) Eosinophils (%) (Auto) 0 % (0-3) Basophils (%) (Auto) 1 % (0-3) Neutrophils # (Auto) 6.3 x10^3/uL (1.8-7.7) Lymphocytes # (Auto) 0.9 x10^3/uL (1.0-4.8) Monocytes # (Auto) 0.4 x10^3/uL (0.0-1.1) Eosinophils # (Auto) 0.0 x10^3/uL (0.0-0.7) Basophils # (Auto) 0.0 x10^3/uL (0.0-0.2) Sodium Level 136 mmol/L (136-145) Potassium Level 5.5 mmol/L (3.5-5.1) Chloride Level 102 mmol/L (98-107) Carbon Dioxide Level 24 mmol/L (21-32) Anion Gap 10 (6-14) Blood Urea Nitrogen 30 mg/dL (8-26) Creatinine 1.6 mg/dL (0.7-1.3) Estimated GFR (Cockcroft-Gault) 52.1 Glucose Level 218 mg/dL (70-99) Calcium Level 8.7 mg/dL (8.5-10.1) Test 09/20/20 11:04 09/20/20 16:19 Glucose (Fingerstick) 248 mg/dL (70-99) 270 mg/dL (70-99) Laboratory Tests Test 09/19/20 20:41 09/20/20 07:10 09/20/20 07:14 09/20/20 11:04 Glucose (Fingerstick) 154 mg/dL (70-99) 216 mg/dL (70-99) 248 mg/dL (70-99) White Blood Count 7.6 x10^3/uL (4.0-11.0) Red Blood Count 3.99 x10^6/uL (4.30-5.70) Hemoglobin 9.3 g/dL (13.0-17.5) Hematocrit 30.3 % (39.0-53.0) Mean Corpuscular Volume 76 fL (79-100) Mean Corpuscular Hemoglobin 23 pg (25-35) Mean Corpuscular Hemoglobin Concent 31 g/dL (31-37) Red Cell Distribution Width 15.6 % (11.5-14.5) Platelet Count 356 x10^3/uL (140-400) Neutrophils (%) (Auto) 82 % (31-73) Lymphocytes (%) (Auto) 12 % (24-48) Monocytes (%) (Auto) 5 % (0-9) Eosinophils (%) (Auto) 0 % (0-3) Basophils (%) (Auto) 1 % (0-3) Neutrophils # (Auto) 6.3 x10^3/uL (1.8-7.7) Lymphocytes # (Auto) 0.9 x10^3/uL (1.0-4.8) Monocytes # (Auto) 0.4 x10^3/uL (0.0-1.1) Eosinophils # (Auto) 0.0 x10^3/uL (0.0-0.7) Basophils # (Auto) 0.0 x10^3/uL (0.0-0.2) Sodium Level 136 mmol/L (136-145) Potassium Level 5.5 mmol/L (3.5-5.1) Chloride Level 102 mmol/L (98-107) Carbon Dioxide Level 24 mmol/L (21-32) Anion Gap 10 (6-14) Blood Urea Nitrogen 30 mg/dL (8-26) Creatinine 1.6 mg/dL (0.7-1.3) Estimated GFR (Cockcroft-Gault) 52.1 Glucose Level 218 mg/dL (70-99) Calcium Level 8.7 mg/dL (8.5-10.1) Test 09/20/20 16:19 Glucose (Fingerstick) 270 mg/dL (70-99) Medications Current Medications Sodium Chloride 1,000 ml @ 1,000 mls/hr 1X ONCE IV Last administered on 09/11/20at 17:47; Start 09/11/20 at 17:45; Stop 09/11/20 at 18:44; Status DC Morphine Sulfate (Morphine Sulfate) 5 mg 1X ONCE IV Last administered on 09/11/20at 17:48; Start 09/11/20 at 17:45; Stop 09/11/20 at 17:46; Status DC Iohexol (Omnipaque 240 Mg/ml) 30 ml 1X ONCE PO Last administered on 09/11/20at 17:50; Start 09/11/20 at 19:00; Stop 09/11/20 at 19:01; Status DC Info (CONTRAST GIVEN -- Rx MONITORING) 1 each PRN DAILY PRN MC SEE COMMENTS; Start 09/11/20 at 19:00; Stop 09/13/20 at 18:59; Status DC Ondansetron HCl (Zofran) 4 mg PRN Q8HRS PRN IV NAUSEA/VOMITING; Start 09/11/20 at 20:15; Stop 09/12/20 at 15:38; Status DC Morphine Sulfate (Morphine Sulfate) 2 mg PRN Q2HR PRN IV PAIN Last administered on 09/11/20at 22:03; Start 09/11/20 at 20:15; Stop 09/12/20 at 20:14; Status DC Insulin Glargine (Lantus Syringe) 10 unit QHS SQ ; Start 09/12/20 at 21:00 Insulin Human Lispro (HumaLOG) 0-9 UNITS TIDWMEALS SQ Last administered on 09/19/20at 12:01; Start 09/12/20 at 08:00 Dextrose (Dextrose 50%-Water Syringe) 12.5 gm PRN Q15MIN PRN IV SEE COMMENTS; Start 09/12/20 at 07:15 Tramadol HCl (Ultram) 50 mg PRN Q6HRS PRN PO PAIN MILD 2ND CHOICE; Start 09/12/20 at 07:15 Fentanyl Citrate (Fentanyl 2ml Vial) 50 mcg PRN Q2HR PRN IVP PAIN SEVERE Last administered on 09/20/20at 12:13; Start 09/12/20 at 07:15 Ondansetron HCl (Zofran) 4 mg PRN Q6HRS PRN IVP NAUSEA/VOMITING; Start 09/12/20 at 07:15 Al Hydroxide/Mg Hydroxide (Mylanta Plus Xs) 30 ml PRN Q3HRS PRN PO HEARTBURN / GAS; Start 09/12/20 at 07:15 Calcium Carbonate/ Glycine (Tums) 500 mg PRN Q3HRS PRN PO UPSET STOMACH; Start 09/12/20 at 07:15 Zolpidem Tartrate (Ambien) 5 mg PRN QHS PRN PO INSOMNIA, MAY REPEAT IN 1HR; Start 09/12/20 at 07:15 Acetaminophen/ Hydrocodone Bitart (Lortab 5/325) 1 tab PRN Q4HRS PRN PO MILD PAIN 1-3 1ST CHOICE; Start 09/12/20 at 07:15 Acetaminophen/ Hydrocodone Bitart (Lortab 5/325) 2 tab PRN Q4HRS PRN PO MODERATE PAIN, SEVERE PAIN Last administered on 09/17/20at 21:13; Start 09/12/20 at 07:15 Acetaminophen (Tylenol) 650 mg PRN Q6HRS PRN PO Headaches, Temp > 101.5F; Start 09/12/20 at 07:15 Ibuprofen (Motrin) 400 mg PRN Q6HRS PRN PO INFLAMMATION; Start 09/12/20 at 07:15 Magnesium Hydroxide (Milk Of Magnesia) 2,400 mg PRN Q12HR PRN PO CONSTIPATION; Start 09/12/20 at 07:15 Bisacodyl (Dulcolax Supp) 10 mg PRN DAILY PRN HI CONSTIPATION; Start 09/12/20 at 07:15 Enoxaparin Sodium (Lovenox 40mg Syringe) 40 mg Q24H SQ Last administered on 09/15/20at 08:10; Start 09/12/20 at 09:00; Stop 09/15/20 at 14:58; Status DC Magnesium Hydroxide (Milk Of Magnesia) 2,400 mg 1X ONCE PO Last administered on 09/12/20at 13:03; Start 09/12/20 at 13:00; Stop 09/12/20 at 13:01; Status DC Sodium Cl/Sod Bicarb/Potass Cl/ PEG (Golytely) 4,000 ml 1X ONCE PO Last administered on 09/13/20at 14:49; Start 09/13/20 at 11:00; Stop 09/13/20 at 11:01; Status DC Amino Acids/ Glycerin/ Electrolytes 1,000 ml @ 75 mls/hr [id number] IV Last administered on 09/20/20at 01:20; Start 09/13/20 at 11:15 Ringer's Solution 1,000 ml @ 75 mls/hr [id number] IV Last administered on 09/17/20at 08:28; Start 09/14/20 at 13:00; Stop 09/18/20 at 12:59; Status DC Propofol (Diprivan) 200 mg STK-MED ONCE IV ; Start 09/14/20 at 12:26; Stop 09/14/20 at 12:26; Status DC Fentanyl Citrate (Fentanyl 2ml Vial) 25 mcg PRN Q5MIN PRN IV MILD PAIN 1-3; Start 09/16/20 at 07:00; Stop 09/16/20 at 16:24; Status DC Fentanyl Citrate (Fentanyl 2ml Vial) 50 mcg PRN Q5MIN PRN IV MODERATE TO SEVERE PAIN; Start 09/16/20 at 07:00; Stop 09/16/20 at 16:24; Status DC Morphine Sulfate (Morphine Sulfate) 1 mg PRN Q10MIN PRN IV SEVERE PAIN 7-10; Start 09/16/20 at 07:00; Stop 09/16/20 at 16:24; Status DC Ringer's Solution 1,000 ml @ 30 mls/hr Q24H IV ; Start 09/16/20 at 07:00; Stop 09/16/20 at 16:24; Status DC Hydromorphone HCl (Dilaudid) 0.5 mg PRN Q10MIN PRN IV SEV PAIN, Second choice; Start 09/16/20 at 07:00; Stop 09/16/20 at 16:24; Status DC Prochlorperazine Edisylate (Compazine) 5 mg PACU PRN PRN IV NAUSEA, MRX1; Start 09/16/20 at 07:00; Stop 09/16/20 at 16:24; Status DC Cefazolin Sodium/ Dextrose 50 ml @ 100 mls/hr 1X PREOP PRN IV PRIOR TO PROCEDURE Last administered on 09/16/20at 08:09; Start 09/16/20 at 06:00; Stop 09/16/20 at 16:25; Status DC Metronidazole 100 ml @ 100 mls/hr 1X PREOP PRN IV PRIOR TO PROCEDURE; Start 09/16/20 at 06:00; Stop 09/16/20 at 16:26; Status DC Fentanyl Citrate (Fentanyl 2ml Vial) 25 mcg PRN Q5MIN PRN IV MILD PAIN 1-3; Start 09/16/20 at 03:30; Stop 09/16/20 at 16:24; Status DC Fentanyl Citrate (Fentanyl 2ml Vial) 50 mcg PRN Q5MIN PRN IV MODERATE TO SEVERE PAIN; Start 09/16/20 at 03:30; Stop 09/16/20 at 16:24; Status DC Morphine Sulfate (Morphine Sulfate) 1 mg PRN Q10MIN PRN IV SEVERE PAIN 7-10; Start 09/16/20 at 03:30; Stop 09/16/20 at 16:24; Status DC Ringer's Solution 1,000 ml @ 30 mls/hr Q24H IV ; Start 09/16/20 at 03:30; Stop 09/16/20 at 15:29; Status DC Hydromorphone HCl (Dilaudid) 0.5 mg PRN Q10MIN PRN IV SEV PAIN, Second choice; Start 09/16/20 at 03:30; Stop 09/16/20 at 16:24; Status DC Insulin Human Lispro (HumaLOG VIAL for OP,RR ONLY) 0-10 units PRN Q1HR PRN SQ PER PROTOCOL Last administered on 09/16/20at 12:10; Start 09/16/20 at 03:30; Stop 09/16/20 at 16:24; Status DC Propofol (Diprivan) 200 mg STK-MED ONCE IV ; Start 09/16/20 at 06:36; Stop 09/16/20 at 06:36; Status DC Lidocaine HCl (Lidocaine Pf 2% Vial) 5 ml STK-MED ONCE .ROUTE ; Start 09/16/20 at 06:36; Stop 09/16/20 at 06:36; Status DC Dexamethasone Sodium Phosphate (Decadron) 4 mg STK-MED ONCE .ROUTE ; Start 09/16/20 at 06:36; Stop 09/16/20 at 06:36; Status DC Ondansetron HCl (Zofran) 4 mg STK-MED ONCE .ROUTE ; Start 09/16/20 at 06:36; Stop 09/16/20 at 06:37; Status DC Rocuronium [place] (Zemuron) 50 mg STK-MED ONCE .ROUTE ; Start 09/16/20 at 06:37; Stop 09/16/20 at 06:37; Status DC Fentanyl Citrate (Fentanyl 2ml Vial) 100 mcg STK-MED ONCE .ROUTE ; Start 09/16/20 at 06:38; Stop 09/16/20 at 06:38; Status DC Midazolam HCl (Versed) 2 mg STK-MED ONCE .ROUTE ; Start 09/16/20 at 08:12; Stop 09/16/20 at 08:13; Status DC Phenylephrine HCl (PHENYLEPHRINE in 0.9% NACL PF) 1 mg STK-MED ONCE IV ; Start 09/16/20 at 08:42; Stop 09/16/20 at 08:42; Status DC Phenylephrine HCl (Anmol-Synephrine Inj) 10 mg STK-MED ONCE .ROUTE ; Start 09/16/20 at 08:42; Stop 09/16/20 at 08:42; Status DC Rocuronium [place] (Zemuron) 50 mg STK-MED ONCE .ROUTE ; Start 09/16/20 at 08:44; Stop 09/16/20 at 08:44; Status DC Neostigmine [place] (Neostigmine Methylsulfate) 5 mg STK-MED ONCE .ROUTE ; Start 09/16/20 at 09:11; Stop 09/16/20 at 09:11; Status DC Sodium Chloride 36.7 ml/Fentanyl Citrate 250 mcg/ Bupivacaine HCl 8.3 ml/Epidural Dosage Infused (Pha) 50 ml @ 0 mls/hr CONT PRN EPID SEE PROTOCOL TABLE Last administered on 09/20/20at 06:26; Start 09/16/20 at 09:15; Stop 09/20/20 at 17:28; Status DC Glycopyrrolate (Robinul) 1 mg STK-MED ONCE .ROUTE ; Start 09/16/20 at 09:11; Stop 09/16/20 at 09:12; Status DC Sevoflurane (Ultane) 60 ml STK-MED ONCE IH ; Start 09/16/20 at 10:22; Stop 09/16/20 at 10:22; Status DC Sodium Chloride (SODIUM CHLORIDE 20ml) 20 ml STK-MED ONCE IJ ; Start 09/16/20 at 10:42; Stop 09/16/20 at 10:43; Status DC Bupivacaine HCl (Sensorcaine Mpf 0.5%) 30 ml STK-MED ONCE .ROUTE ; Start 09/16/20 at 10:42; Stop 09/16/20 at 10:43; Status DC Ringer's Solution 1,000 ml @ 75 mls/hr 1X ONCE IV Last administered on 09/16/20at 12:06; Start 09/16/20 at 12:30; Stop 09/17/20 at 01:49; Status DC Fentanyl Citrate 30 ml @ 0 mls/hr CONT PRN PRN IV PER PROTOCOL; Start 09/20/20 at 16:45 Naloxone HCl (Narcan) 0.4 mg PRN Q2MIN PRN IV SEE INSTRUCTIONS; Start 09/20/20 at 16:45 Sodium Chloride 1,000 ml @ 25 mls/hr Q24H IV ; Start 09/20/20 at 16:45 Active Scripts Active Reported Glipizide 5 Mg Tablet 1 Tab PO BID Lisinopril 5 Mg Tablet 5 Mg PO BID Vitals/I & O Vital Sign - Last 24 Hours 09/19/20 09/19/20 09/20/20 09/20/20 20:00 23:25 01:51 02:21 Temp 97.9 97.9 Pulse 78 Resp 20 18 18 B/P (MAP) 106/61 (76) Pulse Ox 100 100 100 O2 Delivery Nasal Cannula Nasal Cannula Nasal Cannula Nasal Cannula O2 Flow Rate 3.0 3.0 3.0 3.0 09/20/20 09/20/20 09/20/20 09/20/20 03:26 06:26 06:56 07:00 Temp 98.3 98.2 98.3 98.2 Pulse 87 79 Resp 18 18 18 B/P (MAP) 141/73 (95) 149/75 (99) Pulse Ox 100 100 100 100 O2 Delivery Nasal Cannula Nasal Cannula Nasal Cannula Nasal Cannula O2 Flow Rate 3.0 3.0 3.0 3.0 09/20/20 09/20/20 09/20/20 09/20/20 10:26 12:13 12:43 19:19 Temp 97.9 98.3 97.9 98.3 Pulse 91 96 Resp 18 18 B/P (MAP) 171/87 (115) 179/84 (115) Pulse Ox 99 97 O2 Delivery Nasal Cannula Room Air Room Air Room Air O2 Flow Rate 3.0 Intake and Output 09/19/20 09/19/20 09/20/20 15:00 23:00 07:00 Output Total 850 ml Balance -850 ml Nutrition Consultation Dietary Evaluation: Recommendations by RD: Dietary education by RD, Increase Calorie Intake, Protein supplementation Comments: REC liberlized regular diet when able to advance, monitor labs, adjust insulins offer glucerna supplements PPN < 10 days Expected Outcomes/Goals: to meet >75% est nutr needs via po intake Interpretation of weight loss: >10% in 6 months Malnutrition Findings: Food and Nutrition Intake (Sev: <50% est energy req 5days Body Fat Depletion (Non Severe: Mild Depletion Weight Status: Appropriate Justicifation of Admission Dx: Justifications for Admission: Justification of Admission Dx: Yes ROSALIA YOUNG MD Sep 20, 2020 19:39
--- NOTE | 2020-09-20 20:12 | NUR ---
At about 1700 it was found that the patient pulled out his IV. Patient was upset today because he wanted his epidural out. After it was taken out it was explained to him that we would administer his medication through his IV. Patient didn't have a reason for pulling it out.
[2020-09-20] MEDS: INSULIN GLARGINE SYRINGE. SQ SCH (21:00)
[2020-09-20 23:29] VITALS: BP 182/84
--- NOTE | 2020-09-21 03:00 | NUR ---
ASSAYER HELPER went to help patient to bathroom and patient swung at ASSAYER HELPER. Patient yelling and screaming at staff. Nabila baltazar called at this time.
[2020-09-21 03:13] VITALS: BP 174/84
--- NOTE | 2020-09-21 03:24 | NUR ---
Patient brushed teeth for approximately 21 minutes refusing to leave bathroom while Dental Instructor and Nursing Financial Intern observed during code baltazar. Patient escorted back to bed and refusing IV fluids and Fentanyl WELT ROUGHER to be re-started at this time. Patient's bed locked, bed in lowest position, bed alarm activated, and call light within reach.
--- NOTE | 2020-09-21 04:15 | NUR ---
Patient bed alarm went off and patient found on side of bed, using expletive words towards staff when offered assistance. Patient insisted on wearing personal clothing and threatening to leave the hospital.
--- NOTE | 2020-09-21 04:38 | NUR ---
Nabila giovanny called as patient found walking towards fire exit on [address]. Patient insisting he wants to leave the hospital and drive home this morning. Patient followed to elevator stating need to leave, "...because you all are trying to kill me" and "...can't keep me here like a prisoner". Despite explaining risks and consequences of leaving AMA and benefits of continued hospitalization to patient, patient refusing to stay. Taxi cab pass given to patient per Nursing Teleprinter Installer and risks with driving away from hospital explained to patient. AMA paperwork signed, IV removed, and all belongings with patient at time of departure. Security and Nursing supervisor production department escorted patient off unit at approximately [id number]. Addendum: 09/21/20 at 0502 by TYLER MOLINA RN paged and aware that patient left AMA.
--- NOTE | 2020-09-21 13:16 | PDOC3 ---
Discharge Summary Visit Information Date of Admission: Sep 12, 2020 Date of Discharge: Sep 21, 2020 Admitting Diagnosis Comment: Colon cancer Anemia NITESH Vasomotor nephropathy DM2 with hyperglycemia Severe malnutrition Final Diagnosis Problems Medical Problems: (1) Abdominal pain Status: Acute (2) Cancer of ascending colon metastatic to intra-abdominal lymph node Status: Acute Brief Hospital Course Allergies Allergies Coded Allergies Type Severity Reaction Last Updated Verified No Known Drug Allergies 09/11/20 No Vital Signs Vital Signs Date Time Temp Pulse Resp B/P (MAP) Pulse Ox O2 Delivery O2 Flow Rate FiO2 09/21/20 03:13 98.9 90 16 174/84 (114) 97 Room Air 98.9 09/20/20 23:30 2.0 Lab Results Laboratory Tests Test 09/19/20 16:51 09/19/20 20:41 09/20/20 07:10 09/20/20 07:14 Glucose (Fingerstick) 149 mg/dL (70-99) 154 mg/dL (70-99) 216 mg/dL (70-99) White Blood Count 7.6 x10^3/uL (4.0-11.0) Red Blood Count 3.99 x10^6/uL (4.30-5.70) Hemoglobin 9.3 g/dL (13.0-17.5) Hematocrit 30.3 % (39.0-53.0) Mean Corpuscular Volume 76 fL (79-100) Mean Corpuscular Hemoglobin 23 pg (25-35) Mean Corpuscular Hemoglobin Concent 31 g/dL (31-37) Red Cell Distribution Width 15.6 % (11.5-14.5) Platelet Count 356 x10^3/uL (140-400) Neutrophils (%) (Auto) 82 % (31-73) Lymphocytes (%) (Auto) 12 % (24-48) Monocytes (%) (Auto) 5 % (0-9) Eosinophils (%) (Auto) 0 % (0-3) Basophils (%) (Auto) 1 % (0-3) Neutrophils # (Auto) 6.3 x10^3/uL (1.8-7.7) Lymphocytes # (Auto) 0.9 x10^3/uL (1.0-4.8) Monocytes # (Auto) 0.4 x10^3/uL (0.0-1.1) Eosinophils # (Auto) 0.0 x10^3/uL (0.0-0.7) Basophils # (Auto) 0.0 x10^3/uL (0.0-0.2) Sodium Level 136 mmol/L (136-145) Potassium Level 5.5 mmol/L (3.5-5.1) Chloride Level 102 mmol/L (98-107) Carbon Dioxide Level 24 mmol/L (21-32) Anion Gap 10 (6-14) Blood Urea Nitrogen 30 mg/dL (8-26) Creatinine 1.6 mg/dL (0.7-1.3) Estimated GFR (Cockcroft-Gault) 52.1 Glucose Level 218 mg/dL (70-99) Calcium Level 8.7 mg/dL (8.5-10.1) Test 09/20/20 11:04 09/20/20 16:19 09/20/20 20:23 Glucose (Fingerstick) 248 mg/dL (70-99) 270 mg/dL (70-99) 263 mg/dL (70-99) Laboratory Tests Test 09/20/20 16:19 09/20/20 20:23 Glucose (Fingerstick) 270 mg/dL (70-99) 263 mg/dL (70-99) Brief Hospital Course History of Present Illness Patient is 69-year-old male with past medical history DM2, who presents to the ER with complaints of worsening diffuse abdominal pain for the past 5 months. He reports aching/gnawing pain, 8/10. He has associated decreased appetite, intermittent constipation, and intermittent diarrhea. He notes roughly 30 pound unintentional weight loss over this time. He denies any specific aggravating or alleviating symptoms. He did have an appointment earlier this month for CT abdomen that he missed, and was rescheduled for September. He came to the ED due to worsening of his symptoms. CT abdomen pelvis obtained on admission showed findings concerning for malignancy of the colon. Will admit patient for further medical management. 09/13 Patient seen and examined Discussed with RN Discussed with case management Patient is comfortable and was resting when we seen him 09/14 Patient seen and examined Chart reviewed Discussed with RN Discussed with case management Patient is comfortable 09/15 Patient seen and examined Chart reviewed Discussed with RN Discussed with case management Patient is comfortable 09/17 Patient seen and examined Chart reviewed Discussed with RN Discussed with case management Patient is comfortable and was resting when we seen him 09/18 Patient seen and examined Chart reviewed Discussed with RN Patient states pain is 6/10 in severity 09/19 Patient seen and examined Chart reviewed Discussed with RN Patient is hungry but denies significant pain 09/20 Patient quite uncomfortable during my visit. Pain management has been an issue and return of bowel function as well We will follow recommendations from registered nurse surgical services Oncology recommendations noted and greatly appreciated After my visit the patient unfortunately left AGAINST MEDICAL ADVICE please refer to nursing notes for details apparently he became belligerent and physical with one of the aides. Efforts were made to convince patient to stay which were unsuccessful Discharge Information Condition at Discharge: Comment (signed against medical advice) Scheduled Glipizide (Glipizide) 5 Mg Tablet, 1 TAB PO BID for ANTIDIABETIC, #180 Ref 3 (Reported) Entered as Reported by: TYLER MOLINA on 09/11/202218 Last Action: New Order on 09/11/202218 by TYLER MOLINA Lisinopril (Lisinopril) 5 Mg Tablet, 5 MG PO BID for FOR HYPERTENSION, #30 Ref 0 (Reported) Entered as Reported by: TYLER MOLINA on 09/11/202218 Last Action: New Order on 09/11/202218 by TYLER MOLINA Justicifation of Admission Dx: Justifications for Admission: Justification of Admission Dx: Yes ROSALIA YOUNG MD Sep 21, 2020 13:16
--- NOTE | 2020-09-22 15:09 | PATHOLOGY ---
[facility] Accession Number: [id number] . 01 Material submitted: . colon - RIGHT COLON. Modifiers: right . 01 Clinical history: . COLON CANCER, ABD PAIN . 02 Frozen section diagnosis: . INTRAOPERATIVE CONSULTATION WITH GROSS IMPRESSION: (Krishna King MD) . Distal ileum, cecum, ascending colon, and proximal transverse colon with attached mesocolon, extended right colon resection: - Nearly circumferential ulcerated carcinoma of hepatic flexure region. - Smaller sessile mass of proximal ascending colon. - Multiple colon polyps. - Margins of resection grossly free of neoplasm. . The results are displayed to Dr. Mon in the operating room. The specimen is fixed in formalin prior to additional sectioning. . FROZEN SECTION GROSS DESCRIPTION: The specimen is received fresh and is designated "right colon". This consists of a short segment of distal ileum with contiguous cecum, ascending colon, and proximal transverse colon with attached mesocolon. The segment is stapled closed at both ends. The distal ileum measures approximately 5.5 cm in length. The cecum, ascending colon, and proximal transverse colon measure up to 30 cm in length. Attached to the base of the cecum is a pink vermiform appendix measuring 6.5 cm in length and up to 0.8 cm in diameter. The attached mesocolon measures up to approximately 5.0 cm in depth. The serosa of the distal ileum and cecum is pink and glistening. There is an area of black tattooing of the external surface of the distal portion of the segment which measures approximately 4.5 cm in length and is approximately 2 cm from the distal margin and 15.5 cm from the proximal margin. The segment is opened along the antimesocolic aspect. Arising approximately 12 cm from the distal margin, there is a nearly circumferential, naidu to pinkish brown nodular tumor mass measuring up to 6.5 cm in diameter and 6.0 cm in length. The tumor is firmly attached to the muscular wall. Just distal to the tumor, there are three focally pedunculated polyps ranging from 1.0 cm up to 1.8 cm in greatest dimension. In the area of tattooing of the distal colon, there are several small pink-naidu polyps measuring up to 0.5 cm. Within the proximal ascending colon, there is a sessile pinkish brown mass measuring up to 3.5 cm in greatest dimension which is approximately 8.5 cm from the distal ileal margin. Between this mass and the nearly circumferential tumor, there is an additional pink-naidu polyp measuring up to 1.3 cm. There is yellow adiposity of the ileocecal valve. The remainder of the mucosa is pale yellow to naidu and glistening. (JPM:luis felipe; 09/16/2020) . Frozen section performed at [facility], [address] [place] [address]. ABIEL/OBI . 02 Diagnosis: Segment of distal ileum, cecum, ascending colon, and proximal transverse colon with attached mesocolon, extended right colon resection: - INVASIVE COLORECTAL ADENOCARCINOMA, MODERATELY TO POORLY DIFFERENTIATED, FORMING A NEARLY CIRCUMFERENTIAL TUMOR MASS OF THE HEPATIC FLEXURE REGION, MEASURING UP TO 6.5 CM IN GREATEST DIMENSION, WITH TUMOR INVASION THROUGH MUSCULARIS PROPRIA INTO SUBSEROSA AND MESOCOLON. - Tumor involvement of inked radial margin of resection, focal. - Extramural large vessel tumor invasion identified. - Perineural tumor invasion identified, focal. - Proximal and distal margins of resection negative for tumor. - Extranodal tumor implant of mesocolon. - Fifteen mesocolic lymph nodes negative for tumor (0/15). - SEPARATE FOCUS OF INVASIVE COLORECTAL ADENOCARCINOMA, MODERATELY-WELL DIFFERENTIATED, ARISING WITHIN A SESSILE TUBULAR ADENOMA OF PROXIMAL ASCENDING COLON, MEASURING 3.5 CM IN GREATEST DIMENSION, WITH FOCAL TUMOR INVASION OF MUSCULARIS MUCOSA AND SUPERFICIAL SUBMUCOSA. - Pedunculated tubular adenoma of proximal ascending colon showing focal high grade dysplasia. - Tubular adenomas of distal ascending colon, several. - Diverticula of ascending colon. - Adiposity of ileocecal valve. - Appendix showing no significant pathologic abnormalities. (JPM:luis felipe:db; 09/21/2020) . . SURGICAL PATHOLOGY CANCER CASE SUMMARY Protocol posting date: October 2019 . COLON AND RECTUM: Resection Procedure ___ Extended Right Colon Resection Tumor Site ___ Hepatic flexure ___ Proximal ascending colon Tumor Size Greatest dimension: 6.5 cm Macroscopic Tumor Perforation ___ Not identified Histologic Type ___ Adenocarcinoma Histologic Grade ___ G2-3: Moderately to poorly differentiated Tumor Extension ___ Tumor invades through the muscularis propria into pericolorectal tissue Margins ___ Margins uninvolved by invasive carcinoma, high grade dysplasia / intramucosal adenocarcinoma, and adenoma Margins examined: Proximal and distal margins + Distance of invasive carcinoma from closest margin: 12.0 cm + Specify closest margin: Distal margin Radial Margin ___ Focally involved by invasive carcinoma Treatment Effect ___ No known presurgical therapy Lymphovascular Invasion ___ Present + ___ Large vessel invasion + ___ Extramural Perineural Invasion ___ Present + Type of Polyp in Which Invasive Carcinoma Arose + ___ None identified Tumor Deposits ___ Present + Specify number of deposits: 1 Regional Lymph Nodes Number of Lymph Nodes Involved: 0 Number of Lymph Nodes Examined: 15 . Pathologic Stage Classification (pTNM, AJCC 8th Edition) Primary Tumor (pT) ___ pT3: Tumor invades through the muscularis propria into pericolorectal tissues Regional Lymph Nodes (pN) ___ pN1c: No regional lymph nodes are positive, but there are tumor deposits in the subserosa, mesentery, or nonperitonealized pericolic, or perirectal/mesorectal tissues. + Additional Pathologic Findings + ___ Separate focus of invasive colorectal adenocarcinoma, moderately-well differentiated, arising within a sessile tubular adenoma of proximal ascending colon, measuring 3.5 cm in greatest dimension, with focal tumor invasion of muscularis mucosa and superficial submucosa + ___ Adenomas + ___ Diverticulosis (JPM/db; 09/22/2020) QMS 09/22/2020 1441 Local . 02 Electronically signed: . Krishna King MD, Pathologist NPI- [id number] . 01 Gross description: . PLEASE SEE GROSS DESCRIPTION UNDER FROZEN SECTION. . A1: Proximal margin A2: Distal margin A3: IC valve A4-A7: Near circumferential mass (radial margin inked blue) A8: Pedunculated polyp proximal mass A9: Pedunculated polyp distal mass A10: 3 additional polyps distal mass A11-A12: Sessile mass proximal ascending colon A13: Appendix A14: Diverticula A15: 2 bisected lymph nodes, one blue A16: Possible tumor deposit/lymph node A17: 5 intact lymph node candidates A18: 1 trisected lymph node A19: 1 bisected lymph node A20: 6 intact lymph node candidates (SDY; 09/20/2020) SYU/QMS 09/21/2020 1349 Local . 02 Pathologist provided ICD-10: C18.8, D12.2 . 02 CPT . 649370, [id number] Specimen Comment: A courtesy copy of this report has been sent to [phone] Specimen Comment: [id number], Specimen Comment: Report sent to ,DR BLAKE / DR WALKER Performed at: 01 [facility] [address] [facility] [address], [place] [id number] MD Darin Valencia MD Phone: [phone] Performed at: 02 [facility] [address] [place], [place] [id number] MD Krishna King MD Phone: [phone]
== END 2020-09-21 04:37 | disposition left against medical advice (07) | DRG 329 ==
LOC: ER 13:51 → 4 NORTH 21:00
PROVIDERS: ADMIT Internal Medicine; ATTEND Internal Medicine
PROC: 0DBP8ZZ Excision of Rectum, Via Natural or Artificial Opening Endoscopic (ICD-10-PCS; 2020-09-14)
PROC: 0DBP8ZX Excision of Rectum, Via Natural or Artificial Opening Endoscopic, Diagnostic (ICD-10-PCS; 2020-09-14)
PROC: 0DBF8ZX Excision of Right Large Intestine, Via Natural or Artificial Opening Endoscopic, Diagnostic (ICD-10-PCS; 2020-09-14 13:00)
PROC: 0DTF0ZZ Resection of Right Large Intestine, Open Approach (ICD-10-PCS; principal; 2020-09-16 07:30)
DX: C18.2 Malignant neoplasm of ascending colon (principal); E43 Unspecified severe protein-calorie malnutrition; N17.0 Acute kidney failure with tubular necrosis; C18.3 Malignant neoplasm of hepatic flexure; C77.2 Secondary and unspecified malignant neoplasm of intra-abdominal lymph nodes; D50.9 Iron deficiency anemia, unspecified; E11.22 Type 2 diabetes mellitus with diabetic chronic kidney disease; E11.65 Type 2 diabetes mellitus with hyperglycemia; E87.5 Hyperkalemia; I12.9 Hypertensive chronic kidney disease with stage 1 through stage 4 chronic kidney disease, or unspecified chronic kidney disease; K57.90 Diverticulosis of intestine, part unspecified, without perforation or abscess without bleeding; K62.1 Rectal polyp; K64.8 Other hemorrhoids; N18.9 Chronic kidney disease, unspecified; Z79.84 Long term (current) use of oral hypoglycemic drugs; Z79.899 Other long term (current) drug therapy; Z87.891 Personal history of nicotine dependence; Z68.25 Body mass index [BMI] 25.0-25.9, adult; Z20.822 Contact with and (suspected) exposure to COVID-19
CPT/HCPCS: 36415; 45380; 45381; 71250; 74176; 80048; 80053; 82378; 82607; 82728; 82962; 83036; 83540; 83550; 83690; 85025; 86850; 86900; 86901; 86920; 87426; 88305; 88309; 96361; 96374; C1713; J0690; J1100; J1650; J1815; J2250; J2270; J2370; J2405; J2704; J2710; J3010; J3490; J7030; J7120; Q9966; U0003; 99285-25; G0378

== ENCOUNTER → 2020-10-04 | Outpatient (CLI) | payer MEDICARE ==
[2020-09-21 03:13] VITALS: BP 174/84
[~2020-10-04] MED LIST: GLIP5TAB10 PO; LISI-338 PO
[2020-10-04 09:49] LABS: BASO # 0.1 x10^3/uL (0.0-0.2); BASO % 1 % (0-3); EOS # 0.1 x10^3/uL (0.0-0.7); EOS % 1 % (0-3); HEMATOCRIT 27.1 % (39.0-53.0); HEMOGLOBIN 8.4 g/dL (13.0-17.5); LYMPH # 2.3 x10^3/uL (1.0-4.8); LYMPH % 29 % (24-48); MEAN CORPUSCULAR HEMOGLOBIN 23 pg (25-35); MEAN CORPUSCULAR HGB CONC 31 g/dL (31-37); MEAN CORPUSCULAR VOLUME 75 fL (79-100); MONO # 0.5 x10^3/uL (0.0-1.1); MONO % 7 % (0-9); NEUT # 4.9 x10^3/uL (1.8-7.7); NEUT % 62 % (31-73); PLATELET COUNT 385 x10^3/uL (140-400); RED CELL DISTRIBUTION WIDTH 16.5 % (11.5-14.5); WHITE BLOOD COUNT 7.9 x10^3/uL (4.0-11.0)
[2020-10-04 09:54] LABS: CALCIUM 8.5 mg/dL (8.5-10.1); CREATININE 1.5 mg/dL (0.7-1.3); GFR 56.1; POTASSIUM 3.8 mmol/L (3.5-5.1)
[2020-10-04 10:00] LABS: ALBUMIN 2.3 g/dL (3.4-5.0); ALBUMIN/GLOBULIN RATIO 0.6 (1.0-1.7); TOTAL BILIRUBIN 0.2 mg/dL (0.2-1.0); TOTAL PROTEIN 6.1 g/dL (6.4-8.2)
== END ==
LOC: ONCLAB 09:25
PROVIDERS: ATTEND Internal Medicine Hematology & Oncology
DX: C18.3 Malignant neoplasm of hepatic flexure (principal)
CPT/HCPCS: 36415; 80053; 82378; 85025

== ENCOUNTER → 2020-10-11 | Outpatient (CLI) | payer MEDICARE ==
[2020-09-21 03:13] VITALS: BP 174/84
[2020-10-11 12:43] LABS: BASO # 0.1 x10^3/uL (0.0-0.2); BASO % 1 % (0-3); EOS # 0.1 x10^3/uL (0.0-0.7); EOS % 1 % (0-3); HEMATOCRIT 29.2 % (39.0-53.0); LYMPH % 29 % (24-48); MEAN CORPUSCULAR HEMOGLOBIN 23 pg (25-35); MEAN CORPUSCULAR HGB CONC 31 g/dL (31-37); MEAN CORPUSCULAR VOLUME 75 fL (79-100); MONO # 0.4 x10^3/uL (0.0-1.1); MONO % 5 % (0-9); NEUT # 4.4 x10^3/uL (1.8-7.7); NEUT % 63 % (31-73); PLATELET COUNT 312 x10^3/uL (140-400); RED BLOOD COUNT 3.88 x10^6/uL (4.30-5.70); WHITE BLOOD COUNT 6.9 x10^3/uL (4.0-11.0)
[2020-10-11 12:53] LABS: CALCIUM 8.9 mg/dL (8.5-10.1); CREATININE 1.5 mg/dL (0.7-1.3); GFR 56.1; POTASSIUM 4.2 mmol/L (3.5-5.1)
== END ==
LOC: ONCLAB 12:18
PROVIDERS: ATTEND Internal Medicine Hematology & Oncology
DX: C18.3 Malignant neoplasm of hepatic flexure (principal)
CPT/HCPCS: 36415; 80048; 85025

== ENCOUNTER 2020-10-12 07:51 | Outpatient (CLI) | payer MEDICARE ==
[2020-10-12] VITALS (7 sets, daily range): BP systolic 123–168; BP diastolic 71–81
[~2020-10-12] VITALS: Ht 175.3 cm; Wt 71.2 kg
[2020-10-12] MEDS ORDERED: LIDOCAINE 2%/EPI 1:100,000 20 ML VIAL. ONE (08:08)
[2020-10-12] MEDS ORDERED: ceFAZolin SODIUM IV Push 1 GM VIAL. IVP ONE ×2 (08:30→09:34)
[2020-10-12 09:05] LABS: PROTHROMBIN TIME PATIENT 13.6 SEC (11.7-14.0)
[2020-10-12] MEDS ORDERED: LIDOCAINE 1%/EPI 1:100,000 20 ML VIAL. INJ ONE (10:00)
--- NOTE | 2020-10-12 12:19 | NUR ---
Discharge Note: REMI ROLLINS Discharge instructions and discharge home medications reviewed with Patient and a copy given. All questions have been answered and understanding verbalized. The following instructions and handouts were given: Port placement. Discontinued lines and drains: Left AC IV dc'd and tip intact. Patient discharged to home with self via personal vehicle.
--- NOTE | 2020-10-12 13:09 | RAD ---
Procedure: Ultrasound and fluoroscopically guided placement of right internal jugular power port.. 10/12/2020 11:05 AM Clinical Indication: COLON CA NO SEDATION Fluoroscopy time: 0.4 minutes Dose area product: 1 Gycm2 Consent: The procedure was explained in its entirety to the patient or the patients designated route sales representative by a member of the treatment team, including a discussion of the risks, benefits and commonly accepted alternatives to the procedure, as well as the expected consequences of no therapy whatsoever. Discussion of the risks included, but was not limited to, those that are most frequent and those that are rare but possibly severe or life-threatening, as well as the possibility of unforeseen complications. Technique and Findings: All elements of maximal sterile barrier technique including the use of a cap, mask, sterile gown, sterile gloves, large sterile sheet, appropriate hand hygiene, and 2% chlorhexidine for cutaneous antisepsis (or acceptable alternative antiseptic per current guidelines) were followed for this procedure. Following informed consent, and a timeout procedure, the patient was prepped and draped in the usual sterile fashion. Ultrasound interrogation of the right neck revealed patency and compressibility of the right internal jugular vein. A 21-gauge micropuncture was then used to gain access to this vein under ultrasound guidance. A hard copy ultrasound image was recorded. The needle was exchanged over a wire for a sheath. A 1 inch incision was made several centimeters inferior to the venotomy site. A catheter was tunneled from this site dermatotomy site in the neck. Catheter was advanced through peel-away sheath such that its tip was in the proximal right atrium with the patient supine. The catheter was trimmed to length and connected to the port reservoir. The port was found to flush and aspirate normally. The wound was closed in layers using 4-0 Vicryl suture. Sterile dressings were applied. Impression: Successful ultrasound and fluoroscopically guided placement of a right internal jugular PowerPort
== END 2020-10-12 11:50 | disposition home or self-care (01) ==
LOC: INTRAD 07:51
PROVIDERS: ATTEND Internal Medicine Hematology & Oncology
DX: Z45.2 Encounter for adjustment and management of vascular access device (principal); I10 Essential (primary) hypertension; E11.9 Type 2 diabetes mellitus without complications; Z79.899 Other long term (current) drug therapy; Z85.038 Personal history of other malignant neoplasm of large intestine; Z98.890 Other specified postprocedural states; Z87.891 Personal history of nicotine dependence; Z72.89 Other problems related to lifestyle
CPT/HCPCS: 36415; 36561; 76937; 77001; 85610; C1751; C1892; J0690; J3490

== ENCOUNTER → 2020-10-12 | Outpatient (CLI) | payer MEDICARE ==
[2020-09-21 03:13] VITALS: BP 174/84
[~2020-10-12] MED LIST changes: -LISI-338 PO; +LISI-517 PO
== END ==
LOC: LAB 08:13
PROVIDERS: ATTEND Surgery
DX: Z01.812 Encounter for preprocedural laboratory examination (principal); Z20.828 Contact with and (suspected) exposure to other viral communicable diseases
CPT/HCPCS: 87426; U0003

== ENCOUNTER → 2020-10-19 | Outpatient (CLI) | payer MEDICARE ==
[2020-09-21 03:13] VITALS: BP 174/84
[2020-10-19 11:03] LABS: BASO % 1 % (0-3); EOS # 0.1 x10^3/uL (0.0-0.7); EOS % 2 % (0-3); HEMATOCRIT 27.7 % (39.0-53.0); HEMOGLOBIN 8.9 g/dL (13.0-17.5); LYMPH # 1.8 x10^3/uL (1.0-4.8); LYMPH % 21 % (24-48); MEAN CORPUSCULAR HEMOGLOBIN 24 pg (25-35); MEAN CORPUSCULAR HGB CONC 32 g/dL (31-37); MEAN CORPUSCULAR VOLUME 75 fL (79-100); MONO # 0.6 x10^3/uL (0.0-1.1); MONO % 7 % (0-9); NEUT % 70 % (31-73); PLATELET COUNT 278 x10^3/uL (140-400); RED CELL DISTRIBUTION WIDTH 17.1 % (11.5-14.5); WHITE BLOOD COUNT 8.5 x10^3/uL (4.0-11.0)
[2020-10-19 11:16] LABS: CALCIUM 8.8 mg/dL (8.5-10.1); CREATININE 1.8 mg/dL (0.7-1.3); GFR 45.5; POTASSIUM 4.4 mmol/L (3.5-5.1)
[2020-10-19 11:34] LABS: ALBUMIN 2.4 g/dL (3.4-5.0); ALBUMIN/GLOBULIN RATIO 0.7 (1.0-1.7); TOTAL BILIRUBIN 0.3 mg/dL (0.2-1.0)
== END ==
LOC: ONCLAB 09:33
PROVIDERS: ATTEND Internal Medicine Hematology & Oncology
DX: C18.3 Malignant neoplasm of hepatic flexure (principal)
CPT/HCPCS: 36415; 80053; 82728; 83540; 83550; 85025

== ENCOUNTER → 2020-10-26 | Outpatient (CLI) | payer MEDICARE ==
[2020-10-26 10:20] LABS: BASO % 0 % (0-3); EOS # 0.1 x10^3/uL (0.0-0.7); EOS % 3 % (0-3); HEMATOCRIT 26.2 % (39.0-53.0); HEMOGLOBIN 8.3 g/dL (13.0-17.5); LYMPH # 1.8 x10^3/uL (1.0-4.8); LYMPH % 38 % (24-48); MEAN CORPUSCULAR HEMOGLOBIN 24 pg (25-35); MEAN CORPUSCULAR HGB CONC 32 g/dL (31-37); MEAN CORPUSCULAR VOLUME 76 fL (79-100); MONO # 0.2 x10^3/uL (0.0-1.1); MONO % 3 % (0-9); NEUT # 2.6 x10^3/uL (1.8-7.7); NEUT % 55 % (31-73); PLATELET COUNT 239 x10^3/uL (140-400); RED BLOOD COUNT 3.47 x10^6/uL (4.30-5.70); WHITE BLOOD COUNT 4.7 x10^3/uL (4.0-11.0)
[2020-10-26 10:28] LABS: CALCIUM 8.5 mg/dL (8.5-10.1); CREATININE 1.6 mg/dL (0.7-1.3); GFR 52.1; POTASSIUM 4.5 mmol/L (3.5-5.1)
[2020-10-26 10:36] LABS: ALBUMIN 2.3 g/dL (3.4-5.0); ALBUMIN/GLOBULIN RATIO 0.6 (1.0-1.7); TOTAL BILIRUBIN 0.2 mg/dL (0.2-1.0)
== END ==
LOC: ONCLAB 09:44
PROVIDERS: ATTEND Physician Assistant
DX: C18.3 Malignant neoplasm of hepatic flexure (principal)
CPT/HCPCS: 36415; 80053; 85025

== ENCOUNTER → 2020-11-09 | Outpatient (CLI) | payer MEDICARE ==
[2020-11-09 09:43] LABS: BASO % 1 % (0-3); EOS # 0.1 x10^3/uL (0.0-0.7); EOS % 1 % (0-3); HEMATOCRIT 28.7 % (39.0-53.0); LYMPH # 2.3 x10^3/uL (1.0-4.8); LYMPH % 45 % (24-48); MEAN CORPUSCULAR HEMOGLOBIN 25 pg (25-35); MEAN CORPUSCULAR HGB CONC 31 g/dL (31-37); MEAN CORPUSCULAR VOLUME 80 fL (79-100); MONO # 0.4 x10^3/uL (0.0-1.1); MONO % 8 % (0-9); NEUT # 2.4 x10^3/uL (1.8-7.7); NEUT % 46 % (31-73); PLATELET COUNT 263 x10^3/uL (140-400); RED BLOOD COUNT 3.61 x10^6/uL (4.30-5.70); RED CELL DISTRIBUTION WIDTH 22.5 % (11.5-14.5); WHITE BLOOD COUNT 5.1 x10^3/uL (4.0-11.0)
[2020-11-09 10:07] LABS: CALCIUM 8.1 mg/dL (8.5-10.1); CREATININE 1.6 mg/dL (0.7-1.3); POTASSIUM 3.7 mmol/L (3.5-5.1)
[2020-11-09 10:13] LABS: ALBUMIN 2.2 g/dL (3.4-5.0); ALBUMIN/GLOBULIN RATIO 0.6 (1.0-1.7); TOTAL BILIRUBIN 0.3 mg/dL (0.2-1.0); TOTAL PROTEIN 5.7 g/dL (6.4-8.2)
[2020-11-09 10:15] LABS: ANISOCYTOSIS SLIGHT; PLT ESTIMATE ADEQUATE (ADEQUATE)
[2020-11-09 10:16] LABS: OVALOCYTES OCC
[2020-11-09 10:28] LABS: CREATININE,RANDOM URINE 188.8 mg/dL (Not Establ.)
== END ==
LOC: ONCLAB 09:29
PROVIDERS: ATTEND Internal Medicine Hematology & Oncology
DX: C18.3 Malignant neoplasm of hepatic flexure (principal)
CPT/HCPCS: 36415; 80053; 82378; 82570; 84156; 85025

== ENCOUNTER → 2020-11-23 | Outpatient (CLI) | payer MEDICARE ==
[2020-11-23 09:33] LABS: BASO % 1 % (0-3); EOS # 0.1 x10^3/uL (0.0-0.7); EOS % 1 % (0-3); HEMATOCRIT 29.5 % (39.0-53.0); HEMOGLOBIN 9.4 g/dL (13.0-17.5); LYMPH # 1.6 x10^3/uL (1.0-4.8); LYMPH % 32 % (24-48); MEAN CORPUSCULAR HEMOGLOBIN 26 pg (25-35); MEAN CORPUSCULAR HGB CONC 32 g/dL (31-37); MEAN CORPUSCULAR VOLUME 82 fL (79-100); MONO # 0.3 x10^3/uL (0.0-1.1); MONO % 5 % (0-9); NEUT % 61 % (31-73); PLATELET COUNT 203 x10^3/uL (140-400); RED BLOOD COUNT 3.62 x10^6/uL (4.30-5.70); RED CELL DISTRIBUTION WIDTH 24.4 % (11.5-14.5)
[2020-11-23 09:48] LABS: CALCIUM 7.9 mg/dL (8.5-10.1); CREATININE 1.8 mg/dL (0.7-1.3); GFR 45.4; POTASSIUM 3.8 mmol/L (3.5-5.1)
[2020-11-23 10:09] LABS: ALBUMIN 2.4 g/dL (3.4-5.0); ALBUMIN/GLOBULIN RATIO 0.7 (1.0-1.7); TOTAL BILIRUBIN 0.3 mg/dL (0.2-1.0); TOTAL PROTEIN 5.7 g/dL (6.4-8.2)
== END ==
LOC: ONCLAB 08:34
PROVIDERS: ATTEND Physician Assistant
DX: C18.3 Malignant neoplasm of hepatic flexure (principal)
CPT/HCPCS: 36415; 80053; 82378; 82570; 82728; 83540; 83550; 84156; 85025

== ENCOUNTER → 2020-12-07 | Outpatient (CLI) | payer MEDICARE ==
[2020-12-07 11:32] LABS: BASO % 1 % (0-3); EOS % 1 % (0-3); HEMATOCRIT 30.2 % (39.0-53.0); HEMOGLOBIN 9.7 g/dL (13.0-17.5); LYMPH % 36 % (24-48); MEAN CORPUSCULAR HEMOGLOBIN 27 pg (25-35); MEAN CORPUSCULAR HGB CONC 32 g/dL (31-37); MEAN CORPUSCULAR VOLUME 86 fL (79-100); MONO # 0.3 x10^3/uL (0.0-1.1); MONO % 6 % (0-9); NEUT # 3.1 x10^3/uL (1.8-7.7); NEUT % 57 % (31-73); PLATELET COUNT 203 x10^3/uL (140-400); RED BLOOD COUNT 3.52 x10^6/uL (4.30-5.70); RED CELL DISTRIBUTION WIDTH 25.9 % (11.5-14.5); WHITE BLOOD COUNT 5.5 x10^3/uL (4.0-11.0)
[2020-12-07 11:41] LABS: CALCIUM 7.9 mg/dL (8.5-10.1); CREATININE 1.6 mg/dL (0.7-1.3); POTASSIUM 3.4 mmol/L (3.5-5.1)
[2020-12-07 11:47] LABS: ALBUMIN 2.4 g/dL (3.4-5.0); ALBUMIN/GLOBULIN RATIO 0.8 (1.0-1.7); TOTAL BILIRUBIN 0.3 mg/dL (0.2-1.0); TOTAL PROTEIN 5.6 g/dL (6.4-8.2)
[2020-12-07 12:04] LABS: ANISOCYTOSIS MOD; PLT ESTIMATE ADEQUATE (ADEQUATE)
== END ==
LOC: ONCLAB 10:11
PROVIDERS: ATTEND Internal Medicine Hematology & Oncology
DX: C18.3 Malignant neoplasm of hepatic flexure (principal)
CPT/HCPCS: 80053; 82378; 82570; 84156; 85025

== ENCOUNTER → 2020-12-13 | Outpatient (CLI) | payer MEDICARE ==
[~2020-12-13] MED LIST changes: +CONTRAST GIVEN. MC PRN; +IOHEXOL 240 MG/ML 50ML VIAL. PO ONE; +IOHEXOL 300 MG/ML 100ML VIAL. IV ONE
--- NOTE | 2020-12-13 10:36 | RAD ---
INDICATION: Reason: lt leg swelling / Spl. Instructions: / History: COMPARISON: None. TECHNIQUE: Grayscale, color and doppler ultrasound images were obtained of the left lower extremity v enous vasculature. LEFT: No thrombus identified in the common femoral vein, femoral vein, popliteal vein or visualized calf ve ins. Edema of soft tissues. IMPRESSION: * No thrombus identified in deep venous system of the left lower extremity. Electronically signed by: Regan Tadeo MD (12/13/2020 10:33 AM) [id number]
--- NOTE | 2020-12-13 18:06 | RAD ---
EXAM: CT Chest, Abdomen, and Pelvis with IV contrast INDICATION: Reason: RESTAGING COLON CA / Spl. Instructions: IV OMNI 300 60 ML omni 240 50ml / Histor y: TECHNIQUE: Multi-detector row CT images were acquired from the thoracic inlet through the ischial tu berosities with the use of IV contrast. Sagittal and coronal images were acquired from the transaxial data. All CT scans performed at this facility utilize dose optimization techniques as appropriate to the exam, including the following: Automated exposure control and adjustment of the mA and/or KV acc ording to patient size (this includes techniques or standardized protocols for targeted exams where d ose is indication/reason for exam). IV CONTRAST: Administered ORAL CONTRAST: Administered COMPARISON: CT chest without IV contrast of 09/12/[address] abdomen and pelvis of 09/11/2020 FINDINGS: CHEST: CARDIOVASCULAR: Interval placement of a right tunneled chest port. Three-vessel aortic arch. The tho racic aorta is borderline ectatic at 3.8 cm diameter. The heart is upper normal in size and shows cor onary calcifications. MEDIASTINUM & ERICA: No adenopathy or masses. LUNGS: The multiple solid pulmonary nodules identified on the prior study have markedly decreased in size in the interval. For example, a spiculated 1.2 cm nodule in the posterior right upper lobe (imag e 26 of series 3 on the prior chest CT) now is an ill-defined groundglass opacity measuring 7 mm (nic ge 26 series 2). No new nodules or enlarging nodules identified. In addition, the bandlike opacity in the left upper lobe noted previously has since resolved. PLEURAL SPACE: No pleural effusions or pneumothorax. OSSEOUS & SOFT TISSUE: Lipoma along the superficial aspect of the right serratus anterior muscle is r edemonstrated, measuring 6.5 cm AP by 1.9 cm mediolateral and 4.6 cm craniocaudal. Stable 9 mm sclero tic T3 and 8mm inferior endplate T11 lesions. No new sclerotic bone lesions. ABDOMEN/PELVIS: LIVER: Several hypodense masses in the liver are present, several of which show associated cortical retraction. These could reflect treated metastases. The retraction in the adjacent liver capsule is n ew or more conspicuous in the interval. The masses are smaller also. For example, largest lesion in t he left hepatic lobe in hepatic segment 4A now measures 1.7 cm (image 14 of series 4) compared with 3 .1 cm previously (image 21 of series 3 on 09/11/2020). No new hepatic masses identified. BILIARY SYSTEM: Gallbladder is unremarkable. Bile ducts are not dilated. PANCREAS: Unremarkable SPLEEN: Unremarkable ADRENALS: Unremarkable KIDNEYS & URETERS: Hypodense lesions in the kidneys bilaterally compatible with renal cortical cysts are present. These require no additional imaging follow-up. BLADDER: Unremarkable REPRODUCTIVE ORGANS: There is evidence of a right hydrocele communicating with an indirect right her gurinder. GASTROINTESTINAL: Postsurgical changes from an interval right partial colectomy are noted. The residu al large bowel shows extensive colonic diverticulosis and moderate stool. The oral contrast administe red opacifies the small bowel but has not significantly opacified large bowel as of imaging. No findi ngs suspicious for bowel obstruction. The gastric antrum shows borderline wall thickening. No gastric distention. MESENTERY/PERITONEUM/RETROPERITONEUM: Ascites has significantly increased in the interval. No free ai r. No organized fluid collections.. VASCULAR: Multiple prominent mesenteric venous collaterals are present. These have enlarged in the m ore conspicuous in the interval. LYMPH NODES: No adenopathy OSSEOUS & SOFT TISSUES: Unremarkable IMPRESSION: Interval right hemicolectomy with additional posttreatment changes compatible with a positive adjuvan t chemotherapy response showing decrease in size of pulmonary nodules and liver masses. No evidence o f disease progression in the included field of view. The increase in ascites is a potential treatment related side effect. Correlate clinically. Electronically signed by: Gracie Alexander MD (12/13/2020 6:04 PM) [id number]
== END ==
LOC: CT 10:50
PROVIDERS: ATTEND Physician Assistant
DX: C18.9 Malignant neoplasm of colon, unspecified (principal); R22.42 Localized swelling, mass and lump, left lower limb; M79.89 Other specified soft tissue disorders; N28.1 Cyst of kidney, acquired; Z90.49 Acquired absence of other specified parts of digestive tract
CPT/HCPCS: 71260; 74177; 93971; Q9966; Q9967

== ENCOUNTER → 2020-12-21 | Outpatient (CLI) | payer MEDICARE ==
[~2020-12-21] MED LIST changes: -CONTRAST GIVEN. MC PRN; -IOHEXOL 240 MG/ML 50ML VIAL. PO ONE; -IOHEXOL 300 MG/ML 100ML VIAL. IV ONE
[2020-12-21 10:14] LABS: BASO % 1 % (0-3); EOS # 0.1 x10^3/uL (0.0-0.7); EOS % 1 % (0-3); HEMATOCRIT 32.5 % (39.0-53.0); HEMOGLOBIN 10.6 g/dL (13.0-17.5); LYMPH # 1.7 x10^3/uL (1.0-4.8); LYMPH % 31 % (24-48); MEAN CORPUSCULAR HEMOGLOBIN 28 pg (25-35); MEAN CORPUSCULAR HGB CONC 33 g/dL (31-37); MEAN CORPUSCULAR VOLUME 86 fL (79-100); MONO # 0.5 x10^3/uL (0.0-1.1); MONO % 9 % (0-9); NEUT # 3.2 x10^3/uL (1.8-7.7); NEUT % 58 % (31-73); PLATELET COUNT 193 x10^3/uL (140-400); RED BLOOD COUNT 3.76 x10^6/uL (4.30-5.70); RED CELL DISTRIBUTION WIDTH 23.5 % (11.5-14.5); WHITE BLOOD COUNT 5.4 x10^3/uL (4.0-11.0)
[2020-12-21 10:35] LABS: ALBUMIN 2.4 g/dL (3.4-5.0); ALBUMIN/GLOBULIN RATIO 0.7 (1.0-1.7); CALCIUM 7.5 mg/dL (8.5-10.1); CREATININE 2.3 mg/dL (0.7-1.3); GFR 34.2; TOTAL BILIRUBIN 0.3 mg/dL (0.2-1.0); TOTAL PROTEIN 5.7 g/dL (6.4-8.2)
[2020-12-21 10:38] LABS: POTASSIUM 2.8 mmol/L (3.5-5.1)
== END ==
LOC: ONCLAB 09:48
PROVIDERS: ATTEND Internal Medicine Hematology & Oncology
DX: C18.3 Malignant neoplasm of hepatic flexure (principal)
CPT/HCPCS: 36415; 80053; 82378; 85025

== ENCOUNTER → 2020-12-22 | Outpatient (CLI) | payer MEDICARE ==
[2020-12-22 10:24] LABS: CREATININE,RANDOM URINE 253.2 mg/dL (Not Establ.)
== END ==
LOC: ONCLAB 09:46
PROVIDERS: ATTEND Internal Medicine Hematology & Oncology
DX: C18.3 Malignant neoplasm of hepatic flexure (principal)
CPT/HCPCS: 82570; 84156

== ENCOUNTER → 2021-01-05 | Outpatient (CLI) | payer MEDICARE ==
[2021-01-05 10:18] LABS: CALCIUM 7.2 mg/dL (8.5-10.1); CREATININE 1.5 mg/dL (0.7-1.3); POTASSIUM 3.2 mmol/L (3.5-5.1)
[2021-01-05 10:34] LABS: ALBUMIN 1.9 g/dL (3.4-5.0); ALBUMIN/GLOBULIN RATIO 0.6 (1.0-1.7); TOTAL BILIRUBIN 0.3 mg/dL (0.2-1.0)
[2021-01-05 10:38] LABS: CREATININE,RANDOM URINE 91.2 mg/dL (Not Establ.)
[2021-01-05 10:39] LABS: BASO # 0.1 x10^3/uL (0.0-0.2); BASO % 1 % (0-3); EOS # 0.1 x10^3/uL (0.0-0.7); EOS % 1 % (0-3); HEMATOCRIT 32.1 % (39.0-53.0); HEMOGLOBIN 10.4 g/dL (13.0-17.5); LYMPH % 35 % (24-48); MEAN CORPUSCULAR HEMOGLOBIN 29 pg (25-35); MEAN CORPUSCULAR HGB CONC 33 g/dL (31-37); MEAN CORPUSCULAR VOLUME 88 fL (79-100); MONO # 0.3 x10^3/uL (0.0-1.1); MONO % 6 % (0-9); NEUT # 3.3 x10^3/uL (1.8-7.7); NEUT % 57 % (31-73); PLATELET COUNT 176 x10^3/uL (140-400); RED BLOOD COUNT 3.64 x10^6/uL (4.30-5.70); RED CELL DISTRIBUTION WIDTH 22.1 % (11.5-14.5); WHITE BLOOD COUNT 5.7 x10^3/uL (4.0-11.0)
== END ==
LOC: ONCLAB 09:13
PROVIDERS: ATTEND Physician Assistant
DX: C18.3 Malignant neoplasm of hepatic flexure (principal)
CPT/HCPCS: 36415; 80053; 82378; 82570; 84156; 85025; 86705; 86709; 86803; 87340

== ENCOUNTER → 2021-01-07 | Outpatient (CLI) | payer MEDICARE ==
[2021-01-07 10:45] LABS: BASO % 1 % (0-3); EOS % 0 % (0-3); HEMOGLOBIN 10.8 g/dL (13.0-17.5); LYMPH # 2.5 x10^3/uL (1.0-4.8); LYMPH % 39 % (24-48); MEAN CORPUSCULAR HEMOGLOBIN 29 pg (25-35); MEAN CORPUSCULAR HGB CONC 33 g/dL (31-37); MEAN CORPUSCULAR VOLUME 89 fL (79-100); MONO # 0.5 x10^3/uL (0.0-1.1); MONO % 7 % (0-9); NEUT # 3.4 x10^3/uL (1.8-7.7); NEUT % 53 % (31-73); PLATELET COUNT 234 x10^3/uL (140-400); RED CELL DISTRIBUTION WIDTH 22.2 % (11.5-14.5); WHITE BLOOD COUNT 6.5 x10^3/uL (4.0-11.0)
[2021-01-07 10:49] LABS: CALCIUM 8.1 mg/dL (8.5-10.1); CREATININE 1.9 mg/dL (0.7-1.3); GFR 42.6; POTASSIUM 3.5 mmol/L (3.5-5.1)
[2021-01-07 10:55] LABS: ALBUMIN 2.5 g/dL (3.4-5.0); ALBUMIN/GLOBULIN RATIO 0.7 (1.0-1.7); TOTAL BILIRUBIN 0.3 mg/dL (0.2-1.0)
[2021-01-07 12:59] LABS: PLT ESTIMATE ADEQUATE (ADEQUATE)
[2021-01-07 13:01] LABS: ANISOCYTOSIS MOD
== END ==
LOC: ONCLAB 10:25
PROVIDERS: ATTEND Internal Medicine Hematology & Oncology
DX: C18.3 Malignant neoplasm of hepatic flexure (principal)
CPT/HCPCS: 36415; 80053; 82378; 85025

== ENCOUNTER → 2021-01-07 | Outpatient (CLI) | payer MEDICARE ==
--- NOTE | 2021-01-07 10:47 | RAD ---
EXAM: Abdomen sonogram. HISTORY: Colon cancer. Abnormal liver enzyme laboratory values. TECHNIQUE: Sonographic imaging of the abdomen was performed. COMPARISON: CT dated 12/13/2020. FINDINGS: There is diffusely heterogeneous liver. The recently demonstrated hepatic metastases are no t well measured sonographically. The liver is normal in size. There is moderate abdominal ascites. Th e largest ascites pocket measures 6.8 cm in maximum thickness. The common bile duct is normal in mani kurt. The gallbladder wall is normal in thickness. There are echogenic foci along the gallbladder wall due to tiny polyps or adenomyomatosis. The pancreas is predominantly obscured due to bowel gas. The right kidney is atrophic and contains a 2.2 cm cyst. There is a second hypodense lesion within the ri ght kidney on the recent CT which is not seen sonographically. The inferior cava is patent. IMPRESSION: 1. Moderate ascites. 2. Diffusely heterogeneous liver. The recently demonstrated hepatic metastases are not well character ized sonographically. 3. Echogenic foci along the gallbladder wall, likely due to tiny polyps or adenomyomatosis. There is no cholecystitis or biliary ductal dilatation. 4. 2.2 cm cyst within an atrophic right kidney. There is an additional hypodense lesion within the ri ght kidney on the recent CT which demonstrates no sonographic correlate. 5. Predominantly obscured pancreas. Electronically signed by: Sofía Nguyen MD (01/07/2021 10:44 AM) [id number]
== END ==
LOC: US 09:04
PROVIDERS: ATTEND Physician Assistant
DX: C18.3 Malignant neoplasm of hepatic flexure (principal); R18.8 Other ascites; N28.1 Cyst of kidney, acquired
CPT/HCPCS: 76705

== ENCOUNTER → 2021-01-11 | Outpatient (CLI) | payer MEDICARE ==
[2021-01-11 11:20] LABS: BASO % 1 % (0-3); EOS % 0 % (0-3); HEMATOCRIT 31.3 % (39.0-53.0); HEMOGLOBIN 10.3 g/dL (13.0-17.5); LYMPH # 1.8 x10^3/uL (1.0-4.8); LYMPH % 41 % (24-48); MEAN CORPUSCULAR HEMOGLOBIN 30 pg (25-35); MEAN CORPUSCULAR HGB CONC 33 g/dL (31-37); MEAN CORPUSCULAR VOLUME 90 fL (79-100); MONO # 0.3 x10^3/uL (0.0-1.1); MONO % 8 % (0-9); NEUT # 2.2 x10^3/uL (1.8-7.7); NEUT % 50 % (31-73); PLATELET COUNT 283 x10^3/uL (140-400); RED BLOOD COUNT 3.49 x10^6/uL (4.30-5.70); RED CELL DISTRIBUTION WIDTH 21.7 % (11.5-14.5); WHITE BLOOD COUNT 4.4 x10^3/uL (4.0-11.0)
[2021-01-11 11:45] LABS: CALCIUM 8.2 mg/dL (8.5-10.1); CREATININE 1.7 mg/dL (0.7-1.3); GFR 48.5; POTASSIUM 4.2 mmol/L (3.5-5.1)
[2021-01-11 11:54] LABS: ALBUMIN 2.4 g/dL (3.4-5.0); ALBUMIN/GLOBULIN RATIO 0.7 (1.0-1.7); TOTAL BILIRUBIN 0.5 mg/dL (0.2-1.0); TOTAL PROTEIN 5.7 g/dL (6.4-8.2)
== END ==
LOC: ONCLAB 10:32
PROVIDERS: ATTEND Physician Assistant
DX: C18.3 Malignant neoplasm of hepatic flexure (principal)
CPT/HCPCS: 36415; 80053; 85025

== ENCOUNTER → 2021-01-17 | Outpatient (CLI) | payer MEDICARE ==
[~2021-01-17] MED LIST changes: +HEPARIN PF 500 UNIT/5 ML DISP.SYRIN. IVP ONE; +IOHEXOL 240 MG/ML 50ML VIAL. PO ONE; +IOHEXOL 300 MG/ML 100ML VIAL. IV ONE
--- NOTE | 2021-01-17 10:28 | RAD ---
CT of the chest, abdomen, and pelvis with contrast 01/17/2021 INDICATION: Metastatic colorectal carcinoma COMPARISON STUDY: CT of the chest abdomen and pelvis December 13, 2020 TECHNIQUE: Multidetector CT imaging of the chest, abdomen, and pelvis was performed following the adm inistration of IV contrast FINDINGS: There is right internal jugular port placed with tip the cavoatrial junction. Heart size is normal. N o pericardial effusion is identified. No pathologically enlarged mediastinal adenopathy is appreciate d. No pneumothorax, pleural effusion, or acute infiltrates are seen. Somewhat ill-defined nodular opa cities are seen most prominently in the right upper lobe, all of which are unchanged in the interim s kitty comparison exam. Reference lesion can be seen on axial image 26). In the interim since prior study there is continued shrinkage of all of the hypodense liver lesions identified on comparison studies. This may reflect continued decrease in size, decreasing edema, or c ombination thereof. Reference lesion in the lateral right liver with overlying capsular retraction me asures 2.0 cm on today's study previously measuring 2.5 cm. Moderate ascites is seen throughout the a bdomen and pelvis, slightly increased in the interval. Diffuse body wall edema is also mildly increas ed. The gallbladder, adrenal glands, spleen, pancreas are grossly unchanged in appearance. Pancreas i s unremarkable. Renal cysts noted bilaterally, unchanged. Bladder is unremarkable. There is a truncat ed appearance of the caudad aspect of the SMV appears to be supplied by large mesenteric collaterals. The splenic vein is occluded. The coronary vein is prominent. The main portal vein, and right left p ortal veins are patent Scattered sclerotic lesions are seen throughout the visualized osseous structu res. The appearance is nonspecific. Metastatic disease is difficult to exclude in the absence of ana te comparisons. IMPRESSION: 1. Continued decrease in size of multifocal liver lesions, possibly relating to decreased size, decre asing edema, or combination thereof. Continued surveillance recommended. 2. Stable appearance of multifocal nodular opacities in the chest. No evidence of disease progression is identified. 3. Slight increase in abdominal ascites and diffuse body wall edema. 4. Chronic appearing splenic vein thrombosis with significant mesenteric and perigastric collaterals. Truncated appearance of the caudad superior mesenteric vein. Consider gastroenterology consultation for assessment of the presence and/or severity of gastric varices. CT DOSING PQRS STATEMENT: One or more of the following individualized dose reduction techniques were utilized for this examinat ion: 1. Automated exposure control 2. Adjustment of the mA and/or kV according to patient size 3. Use of iterative reconstruction technique Electronically signed by: Phan Lieberman MD (01/17/2021 10:25 AM) [id number]
== END ==
LOC: CT 11:11
PROVIDERS: ATTEND Physician Assistant
DX: C18.3 Malignant neoplasm of hepatic flexure (principal); D73.5 Infarction of spleen; R94.5 Abnormal results of liver function studies; I82.90 Acute embolism and thrombosis of unspecified vein
CPT/HCPCS: 71260; 74177; J1642; Q9966; Q9967

== ENCOUNTER → 2021-01-18 | Outpatient (CLI) | payer MEDICARE ==
[~2021-01-18] MED LIST changes: -HEPARIN PF 500 UNIT/5 ML DISP.SYRIN. IVP ONE; -IOHEXOL 240 MG/ML 50ML VIAL. PO ONE; -IOHEXOL 300 MG/ML 100ML VIAL. IV ONE
[2021-01-18 10:07] LABS: BASO % 0 % (0-3); EOS % 0 % (0-3); HEMATOCRIT 33.2 % (39.0-53.0); HEMOGLOBIN 10.9 g/dL (13.0-17.5); LYMPH # 2.3 x10^3/uL (1.0-4.8); LYMPH % 33 % (24-48); MEAN CORPUSCULAR HEMOGLOBIN 30 pg (25-35); MEAN CORPUSCULAR HGB CONC 33 g/dL (31-37); MEAN CORPUSCULAR VOLUME 91 fL (79-100); MONO # 0.4 x10^3/uL (0.0-1.1); MONO % 5 % (0-9); NEUT # 4.3 x10^3/uL (1.8-7.7); NEUT % 61 % (31-73); PLATELET COUNT 285 x10^3/uL (140-400); RED BLOOD COUNT 3.66 x10^6/uL (4.30-5.70); RED CELL DISTRIBUTION WIDTH 21.5 % (11.5-14.5)
[2021-01-18 10:32] LABS: CALCIUM 7.9 mg/dL (8.5-10.1); CREATININE 1.7 mg/dL (0.7-1.3); GFR 48.5; POTASSIUM 3.9 mmol/L (3.5-5.1)
[2021-01-18 10:34] LABS: ALBUMIN 2.3 g/dL (3.4-5.0); ALBUMIN/GLOBULIN RATIO 0.7 (1.0-1.7); TOTAL BILIRUBIN 0.2 mg/dL (0.2-1.0); TOTAL PROTEIN 5.4 g/dL (6.4-8.2)
== END ==
LOC: ONCLAB 09:23
PROVIDERS: ATTEND Internal Medicine Hematology & Oncology
DX: C18.3 Malignant neoplasm of hepatic flexure (principal)
CPT/HCPCS: 36415; 80053; 82378; 85025

== ENCOUNTER → 2021-01-24 | Outpatient (CLI) | payer MEDICARE ==
[2021-01-24 09:14] LABS: BASO # 0.1 x10^3/uL (0.0-0.2); BASO % 1 % (0-3); EOS % 1 % (0-3); HEMATOCRIT 32.4 % (39.0-53.0); HEMOGLOBIN 10.6 g/dL (13.0-17.5); LYMPH # 1.5 x10^3/uL (1.0-4.8); LYMPH % 27 % (24-48); MEAN CORPUSCULAR HEMOGLOBIN 30 pg (25-35); MEAN CORPUSCULAR HGB CONC 33 g/dL (31-37); MEAN CORPUSCULAR VOLUME 91 fL (79-100); MONO # 0.3 x10^3/uL (0.0-1.1); MONO % 6 % (0-9); NEUT # 3.5 x10^3/uL (1.8-7.7); NEUT % 66 % (31-73); PLATELET COUNT 201 x10^3/uL (140-400); RED BLOOD COUNT 3.57 x10^6/uL (4.30-5.70); RED CELL DISTRIBUTION WIDTH 19.4 % (11.5-14.5); WHITE BLOOD COUNT 5.3 x10^3/uL (4.0-11.0)
[2021-01-24 09:24] LABS: CREATININE 1.9 mg/dL (0.7-1.3); GFR 42.6; POTASSIUM 3.7 mmol/L (3.5-5.1)
[2021-01-24 09:29] LABS: ALBUMIN 2.3 g/dL (3.4-5.0); ALBUMIN/GLOBULIN RATIO 0.7 (1.0-1.7); TOTAL BILIRUBIN 0.2 mg/dL (0.2-1.0); TOTAL PROTEIN 5.6 g/dL (6.4-8.2)
== END ==
LOC: ONCLAB 08:53
PROVIDERS: ATTEND Internal Medicine Hematology & Oncology
DX: C18.3 Malignant neoplasm of hepatic flexure (principal)
CPT/HCPCS: 36415; 80053; 82378; 85025

== ENCOUNTER → 2021-01-31 | Outpatient (CLI) | payer MEDICARE ==
[2021-01-31 09:34] LABS: CREATININE,RANDOM URINE 177.3 mg/dL (Not Establ.)
[2021-01-31 09:40] LABS: CALCIUM 8.1 mg/dL (8.5-10.1); CREATININE 1.8 mg/dL (0.7-1.3); GFR 45.4; POTASSIUM 3.7 mmol/L (3.5-5.1)
[2021-01-31 09:45] LABS: ALBUMIN 2.4 g/dL (3.4-5.0); ALBUMIN/GLOBULIN RATIO 0.7 (1.0-1.7); TOTAL BILIRUBIN 0.3 mg/dL (0.2-1.0); TOTAL PROTEIN 5.7 g/dL (6.4-8.2)
[2021-01-31 10:01] LABS: BASO % 0 % (0-3); EOS % 0 % (0-3); HEMATOCRIT 33.8 % (39.0-53.0); LYMPH # 1.7 x10^3/uL (1.0-4.8); LYMPH % 31 % (24-48); MEAN CORPUSCULAR HEMOGLOBIN 30 pg (25-35); MEAN CORPUSCULAR HGB CONC 33 g/dL (31-37); MEAN CORPUSCULAR VOLUME 91 fL (79-100); MONO # 0.2 x10^3/uL (0.0-1.1); MONO % 4 % (0-9); NEUT # 3.5 x10^3/uL (1.8-7.7); NEUT % 65 % (31-73); PLATELET COUNT 201 x10^3/uL (140-400); RED BLOOD COUNT 3.71 x10^6/uL (4.30-5.70); RED CELL DISTRIBUTION WIDTH 17.8 % (11.5-14.5); WHITE BLOOD COUNT 5.5 x10^3/uL (4.0-11.0)
[2021-01-31 11:33] LABS: MAGNESIUM 1.4 mg/dL (1.8-2.4)
== END ==
LOC: ONCLAB 08:53
PROVIDERS: ATTEND Internal Medicine Hematology & Oncology
DX: C18.3 Malignant neoplasm of hepatic flexure (principal)
CPT/HCPCS: 36415; 80053; 82378; 82570; 83735; 84156; 85025

== ENCOUNTER → 2021-02-07 | Outpatient (CLI) | payer MEDICARE ==
[2021-02-07 09:47] LABS: BASO % 1 % (0-3); EOS # 0.1 x10^3/uL (0.0-0.7); EOS % 1 % (0-3); HEMATOCRIT 32.2 % (39.0-53.0); HEMOGLOBIN 10.7 g/dL (13.0-17.5); LYMPH # 1.9 x10^3/uL (1.0-4.8); LYMPH % 32 % (24-48); MEAN CORPUSCULAR HEMOGLOBIN 31 pg (25-35); MEAN CORPUSCULAR HGB CONC 33 g/dL (31-37); MEAN CORPUSCULAR VOLUME 92 fL (79-100); MONO # 0.4 x10^3/uL (0.0-1.1); MONO % 6 % (0-9); NEUT # 3.5 x10^3/uL (1.8-7.7); NEUT % 60 % (31-73); PLATELET COUNT 204 x10^3/uL (140-400); RED CELL DISTRIBUTION WIDTH 18.3 % (11.5-14.5); WHITE BLOOD COUNT 5.8 x10^3/uL (4.0-11.0)
[2021-02-07 09:50] LABS: CALCIUM 7.5 mg/dL (8.5-10.1); CREATININE 2.1 mg/dL (0.7-1.3); POTASSIUM 3.4 mmol/L (3.5-5.1)
[2021-02-07 09:56] LABS: ALBUMIN 2.3 g/dL (3.4-5.0); ALBUMIN/GLOBULIN RATIO 0.7 (1.0-1.7); TOTAL BILIRUBIN 0.2 mg/dL (0.2-1.0); TOTAL PROTEIN 5.5 g/dL (6.4-8.2)
== END ==
LOC: ONCLAB 09:11
PROVIDERS: ATTEND Internal Medicine Hematology & Oncology
DX: C18.3 Malignant neoplasm of hepatic flexure (principal)
CPT/HCPCS: 36415; 80053; 82378; 85025

== ENCOUNTER → 2021-02-22 | Outpatient (CLI) | payer MEDICARE ==
[2021-02-22 10:14] LABS: BASO % 1 % (0-3); EOS % 1 % (0-3); HEMATOCRIT 34.5 % (39.0-53.0); HEMOGLOBIN 11.3 g/dL (13.0-17.5); LYMPH # 1.8 x10^3/uL (1.0-4.8); LYMPH % 36 % (24-48); MEAN CORPUSCULAR HEMOGLOBIN 31 pg (25-35); MEAN CORPUSCULAR HGB CONC 33 g/dL (31-37); MEAN CORPUSCULAR VOLUME 94 fL (79-100); MONO # 0.4 x10^3/uL (0.0-1.1); MONO % 7 % (0-9); NEUT # 2.8 x10^3/uL (1.8-7.7); NEUT % 56 % (31-73); PLATELET COUNT 191 x10^3/uL (140-400); RED BLOOD COUNT 3.69 x10^6/uL (4.30-5.70); RED CELL DISTRIBUTION WIDTH 16.9 % (11.5-14.5)
[2021-02-22 10:35] LABS: CREATININE 2.2 mg/dL (0.7-1.3); POTASSIUM 3.6 mmol/L (3.5-5.1)
[2021-02-22 10:41] LABS: ALBUMIN 2.1 g/dL (3.4-5.0); ALBUMIN/GLOBULIN RATIO 0.7 (1.0-1.7); TOTAL BILIRUBIN 0.3 mg/dL (0.2-1.0); TOTAL PROTEIN 5.3 g/dL (6.4-8.2)
[2021-02-22 12:49] LABS: CREATININE,RANDOM URINE 126.8 mg/dL (Not Establ.)
== END ==
LOC: ONCLAB 09:45
PROVIDERS: ATTEND Internal Medicine Hematology & Oncology
DX: C18.3 Malignant neoplasm of hepatic flexure (principal)
CPT/HCPCS: 36415; 80053; 82378; 82570; 84156; 85025

== ENCOUNTER → 2021-03-07 | Outpatient (CLI) | payer MEDICARE ==
--- NOTE | 2021-03-07 09:49 | RAD ---
EXAM: CT Chest, Abdomen and Pelvis without IV contrast CLINICAL HISTORY: Reason: colon cancer / Spl. Instructions: no oral/iv contrast per office / History: COMPARISON: 01/17/2021 12/13/2020 TECHNIQUE: Helical CT of the chest, abdomen and pelvis was performed without intravenous contrast. Ax ial, coronal and sagittal reformatted images were generated. ---PQRS compliance statement - One or more of the following individualized dose reduction techniques were utilized for this study: 1. Automated exposure control 2. Adjustment of the mA and/or kV according to patient size 3. Use of iterative reconstruction technique--- FINDINGS: Lack of intravenous contrast limits evaluation of solid organs, vasculature, and lymph nodes. Chest: Right port tip terminates within the distal SVC. Heart is not enlarged. No pericardial effusion. Trac e left pleural effusion. No pneumothorax. Calcified granuloma left upper lobe small linear and bandli ke opacities likely scarring/atelectasis. Tree-in-bud type branching opacities in the lingula anterio rly stable. Calcified granuloma middle lobe. 8 mm right upper lobe lung nodule, stable (image 25) Abdomen and Pelvis: Hypodense hepatic lesions are again seen. For example a medial right hepatic lobe lesion measures 15 mm, previously 21 mm. Gallbladder is stable in appearance. High density material likely sludge. No bi liary ductal dilatation. Renal cysts are seen. Spleen, adrenal glands and pancreas are grossly stable. No hydronephrosis or hy droureter. Moderate abdominal and pelvic ascites. Colonic diverticulosis without CT evidence for acute diverticu litis. Anastomosis in the right upper quadrant from partial right colectomy. Previously described spl enic vein thrombosis is not delineated on this noncontrast examination. Ascites extends into the righ t inguinal canal. Mild bladder wall thickening, likely due to underdistention. Aorta is normal in iehsa iber with atherosclerotic calcifications. Bones: Scattered small sclerotic structures throughout the osseous structures likely bone islands giv en morphology although metastasis cannot be entirely excluded. IMPRESSION: 1. Mild interval decrease in the hepatic lesions suggesting femoral response. 2. Postsurgical changes of the colon from partial colectomy. 3. Abdominal and pelvic ascites is stable. 4. Previously seen splenic vein thrombosis is not able to be assessed on this noncontrast examinatio n. 5. Small patchy nodular opacities bilaterally, with prominent in the right upper lobe, stable. Electronically signed by: Ciro Chong MD (03/07/2021 9:47 AM) [id number]
== END ==
LOC: CT 08:47
PROVIDERS: ATTEND Internal Medicine Hematology & Oncology
DX: C18.3 Malignant neoplasm of hepatic flexure (principal); K82.8 Other specified diseases of gallbladder; K57.30 Diverticulosis of large intestine without perforation or abscess without bleeding; R18.8 Other ascites; J84.10 Pulmonary fibrosis, unspecified
CPT/HCPCS: 71250; 74176

== ENCOUNTER → 2021-03-08 | Outpatient (CLI) | payer MEDICARE ==
--- NOTE | 2021-03-08 17:26 | RAD ---
EXAM: RENAL/RETROPERITONAL ULTRASOUND. HISTORY: Proteinuria. COMPARISON: 03/07/2021. FINDINGS: Ultrasound of the kidneys, bladder and retroperitoneum was performed. The right kidney measures 9.3 cm. Cortical echogenicity is increased. Cortical thickness is preserved . There is no hydronephrosis. Multiple renal cysts measure up to 2.1 x 2.0 cm in the interpolar regio n. It contains a thin septation and an echogenic 7 mm nodule along its inferior periphery. 2 adjacent cysts versus a septated cyst laterally in the lower pole measure 2.1 x 1.7 cm. There are smaller cys ts at the upper pole. The left kidney measures 9.9 cm. Cortical echogenicity is increased. Cortical thickness is preserved. There is no hydronephrosis. Benign-appearing cysts measure up to 2.6 x 1.6 cm. The bladder is decompressed but demonstrates some wall thickening. There is moderate to large ascites . The abdominal aorta and inferior vena cava are grossly patent and normal in caliber. IMPRESSION: 1. Increased bilateral renal cortical echogenicity is consistent with intrinsic renal disease. No hyd ronephrosis. 2. A 2.1 cm cyst within the right interpolar region has an echogenic 7 mm nodule at its lower pole an d is indeterminate. Follow-up is recommended in 3-6 months. 3. Bladder wall thickening. Correlate with urinalysis. 4. Moderate to large ascites. Electronically signed by: Lolis Bernstein MD (03/08/2021 5:24 PM) [id number]
== END ==
LOC: US 14:03
PROVIDERS: ATTEND Physician Assistant
DX: C18.3 Malignant neoplasm of hepatic flexure (principal); R18.8 Other ascites; N28.1 Cyst of kidney, acquired
CPT/HCPCS: 76770

== ENCOUNTER → 2021-03-08 | Outpatient (CLI) | payer MEDICARE ==
[2021-03-08 10:54] LABS: BASO % 1 % (0-3); EOS # 0.1 x10^3/uL (0.0-0.7); EOS % 1 % (0-3); HEMATOCRIT 29.9 % (39.0-53.0); LYMPH # 1.3 x10^3/uL (1.0-4.8); LYMPH % 26 % (24-48); MEAN CORPUSCULAR HEMOGLOBIN 31 pg (25-35); MEAN CORPUSCULAR HGB CONC 33 g/dL (31-37); MEAN CORPUSCULAR VOLUME 93 fL (79-100); MONO # 0.4 x10^3/uL (0.0-1.1); MONO % 8 % (0-9); NEUT # 3.3 x10^3/uL (1.8-7.7); NEUT % 64 % (31-73); PLATELET COUNT 166 x10^3/uL (140-400); RED BLOOD COUNT 3.21 x10^6/uL (4.30-5.70); RED CELL DISTRIBUTION WIDTH 16.5 % (11.5-14.5); WHITE BLOOD COUNT 5.2 x10^3/uL (4.0-11.0)
[2021-03-08 11:05] LABS: CALCIUM 7.5 mg/dL (8.5-10.1); CREATININE 2.7 mg/dL (0.7-1.3); GFR 28.4; POTASSIUM 3.1 mmol/L (3.5-5.1)
[2021-03-08 11:12] LABS: ALBUMIN/GLOBULIN RATIO 0.6 (1.0-1.7); TOTAL BILIRUBIN 0.3 mg/dL (0.2-1.0); TOTAL PROTEIN 5.2 g/dL (6.4-8.2)
[2021-03-08 12:07] LABS: CREATININE,RANDOM URINE 142.9 mg/dL (Not Establ.)
== END ==
LOC: ONCLAB 10:22
PROVIDERS: ATTEND Internal Medicine Hematology & Oncology
DX: C18.3 Malignant neoplasm of hepatic flexure (principal)
CPT/HCPCS: 36415; 80053; 82378; 82570; 84156; 85025

== ENCOUNTER → 2021-03-09 | Outpatient (CLI) | payer MEDICARE ==
[2021-03-09 12:35] LABS: CALCIUM 7.7 mg/dL (8.5-10.1); CREATININE 2.5 mg/dL (0.7-1.3); POTASSIUM 3.2 mmol/L (3.5-5.1)
== END ==
LOC: ONCLAB 11:52
PROVIDERS: ATTEND Physician Assistant
DX: C18.3 Malignant neoplasm of hepatic flexure (principal)
CPT/HCPCS: 36415; 80048

== ENCOUNTER → 2021-03-11 | Outpatient (CLI) | payer MEDICARE ==
[2021-03-11 15:05] LABS: BASO % 1 % (0-3); EOS % 0 % (0-3); HEMATOCRIT 32.5 % (39.0-53.0); HEMOGLOBIN 10.6 g/dL (13.0-17.5); LYMPH # 1.6 x10^3/uL (1.0-4.8); LYMPH % 23 % (24-48); MEAN CORPUSCULAR HEMOGLOBIN 31 pg (25-35); MEAN CORPUSCULAR HGB CONC 33 g/dL (31-37); MEAN CORPUSCULAR VOLUME 94 fL (79-100); MONO # 0.5 x10^3/uL (0.0-1.1); MONO % 8 % (0-9); NEUT # 4.8 x10^3/uL (1.8-7.7); NEUT % 69 % (31-73); PLATELET COUNT 253 x10^3/uL (140-400); RED BLOOD COUNT 3.46 x10^6/uL (4.30-5.70); RED CELL DISTRIBUTION WIDTH 16.1 % (11.5-14.5)
[2021-03-11 15:05] LABS: BILIRUBIN,URINE NEGATIVE (NEG); CLARITY,URINE CLEAR; COLOR,URINE YELLOW; NITRITE,URINE NEGATIVE (NEG); PH,URINE 6.5 (<5.0-8.0); PROTEIN,URINE >=300 mg/dL (NEG-TRACE); UROBILINOGEN,URINE 0.2 mg/dL (0.2 mg/dL)
[2021-03-11 15:12] LABS: CREATININE,RANDOM URINE 46.6 mg/dL (Not Establ.)
[2021-03-11 15:21] LABS: BACTERIA,URINE 0 /HPF (0-FEW); WBC,URINE OCC /HPF (0-4)
[2021-03-11 15:22] LABS: CALCIUM 7.7 mg/dL (8.5-10.1); CREATININE 2.3 mg/dL (0.7-1.3); GFR 34.2; POTASSIUM 3.4 mmol/L (3.5-5.1)
[2021-03-11 15:27] LABS: ALBUMIN 1.9 g/dL (3.4-5.0); ALBUMIN/GLOBULIN RATIO 0.6 (1.0-1.7); TOTAL BILIRUBIN 0.3 mg/dL (0.2-1.0); TOTAL PROTEIN 5.3 g/dL (6.4-8.2)
[2021-03-14 10:13] LABS: KAPPA FREE 71.5 mg/L (3.3-19.4); KAPPA LAMBDA RATIO 1.26 (0.26-1.65); LAMBDA FREE 56.6 mg/L (5.7-26.3)
[2021-03-14 13:14] LABS: CEA 12.8 ng/mL (0.0-4.7)
[2021-03-14 14:14] LABS: IMMUNOGLOBULIN A 240 mg/dL (61-437); IMMUNOGLOBULIN G 962 mg/dL (603-1613); IMMUNOGLOBULIN M 40 mg/dL (20-172)
[2021-03-14 17:25] LABS: ALBUM 2.3 g/dL (2.9-4.4); ALPHA 1 0.3 g/dL (0.0-0.4); ALPHA 2 0.7 g/dL (0.4-1.0); GAMMA 0.8 g/dL (0.4-1.8); PROTEIN TOTAL 5.1 g/dL (6.0-8.5); SPEP AG RATIO 0.8 (0.7-1.7)
[2021-03-14 21:07] LABS: ANA INTERP Negative (.)
== END ==
LOC: ONCLAB 14:01
PROVIDERS: ATTEND Internal Medicine Hematology & Oncology
DX: C18.3 Malignant neoplasm of hepatic flexure (principal); N18.31 Chronic kidney disease, stage 3a
CPT/HCPCS: 36415; 80053; 81001; 82378; 82570; 82595; 82784; 83520; 84156; 84165; 85025; 86038; 86162; 86334

== ENCOUNTER → 2021-03-17 | Outpatient (CLI) | payer MEDICARE ==
[2021-03-17 11:50] LABS: BASO # 0.1 x10^3/uL (0.0-0.2); BASO % 1 % (0-3); EOS % 0 % (0-3); HEMATOCRIT 30.6 % (39.0-53.0); HEMOGLOBIN 10.1 g/dL (13.0-17.5); LYMPH # 1.4 x10^3/uL (1.0-4.8); LYMPH % 29 % (24-48); MEAN CORPUSCULAR HEMOGLOBIN 31 pg (25-35); MEAN CORPUSCULAR HGB CONC 33 g/dL (31-37); MEAN CORPUSCULAR VOLUME 95 fL (79-100); MONO # 0.3 x10^3/uL (0.0-1.1); MONO % 6 % (0-9); NEUT # 3.1 x10^3/uL (1.8-7.7); NEUT % 64 % (31-73); PLATELET COUNT 278 x10^3/uL (140-400); RED BLOOD COUNT 3.24 x10^6/uL (4.30-5.70); RED CELL DISTRIBUTION WIDTH 15.6 % (11.5-14.5); WHITE BLOOD COUNT 4.9 x10^3/uL (4.0-11.0)
[2021-03-17 12:10] LABS: CALCIUM 7.8 mg/dL (8.5-10.1); CREATININE 2.3 mg/dL (0.7-1.3); GFR 34.2; POTASSIUM 4.6 mmol/L (3.5-5.1)
[2021-03-17 12:15] LABS: ALBUMIN 1.8 g/dL (3.4-5.0); ALBUMIN/GLOBULIN RATIO 0.5 (1.0-1.7); TOTAL BILIRUBIN 0.2 mg/dL (0.2-1.0); TOTAL PROTEIN 5.2 g/dL (6.4-8.2)
== END ==
LOC: ONCLAB 11:32
PROVIDERS: ATTEND Internal Medicine Hematology & Oncology
DX: C18.3 Malignant neoplasm of hepatic flexure (principal)
CPT/HCPCS: 36415; 80053; 82378; 85025

== ENCOUNTER → 2021-03-22 | Outpatient (CLI) | payer MEDICARE ==
[2021-03-22 11:10] LABS: BASO % 1 % (0-3); EOS % 1 % (0-3); HEMATOCRIT 31.9 % (39.0-53.0); HEMOGLOBIN 10.2 g/dL (13.0-17.5); LYMPH # 1.8 x10^3/uL (1.0-4.8); LYMPH % 30 % (24-48); MEAN CORPUSCULAR HEMOGLOBIN 30 pg (25-35); MEAN CORPUSCULAR HGB CONC 32 g/dL (31-37); MEAN CORPUSCULAR VOLUME 95 fL (79-100); MONO # 0.3 x10^3/uL (0.0-1.1); MONO % 6 % (0-9); NEUT # 3.6 x10^3/uL (1.8-7.7); NEUT % 62 % (31-73); PLATELET COUNT 252 x10^3/uL (140-400); RED BLOOD COUNT 3.37 x10^6/uL (4.30-5.70); RED CELL DISTRIBUTION WIDTH 15.5 % (11.5-14.5); WHITE BLOOD COUNT 5.8 x10^3/uL (4.0-11.0)
[2021-03-22 11:21] LABS: CALCIUM 7.8 mg/dL (8.5-10.1); CREATININE 2.6 mg/dL (0.7-1.3); GFR 29.7; POTASSIUM 4.7 mmol/L (3.5-5.1)
[2021-03-22 11:27] LABS: ALBUMIN 1.7 g/dL (3.4-5.0); ALBUMIN/GLOBULIN RATIO 0.5 (1.0-1.7); TOTAL BILIRUBIN 0.2 mg/dL (0.2-1.0); TOTAL PROTEIN 5.1 g/dL (6.4-8.2)
== END ==
LOC: ONCLAB 10:16
PROVIDERS: ATTEND Internal Medicine Hematology & Oncology
DX: C18.3 Malignant neoplasm of hepatic flexure (principal)
CPT/HCPCS: 36415; 80053; 82378; 85025

== ENCOUNTER → 2021-04-04 | Outpatient (CLI) | payer MEDICARE ==
[2021-04-04 10:45] LABS: BASO # 0.1 x10^3/uL (0.0-0.2); BASO % 1 % (0-3); EOS # 0.1 x10^3/uL (0.0-0.7); EOS % 1 % (0-3); HEMATOCRIT 34.8 % (39.0-53.0); HEMOGLOBIN 11.5 g/dL (13.0-17.5); LYMPH # 1.7 x10^3/uL (1.0-4.8); LYMPH % 29 % (24-48); MEAN CORPUSCULAR HEMOGLOBIN 31 pg (25-35); MEAN CORPUSCULAR HGB CONC 33 g/dL (31-37); MEAN CORPUSCULAR VOLUME 95 fL (79-100); MONO # 0.3 x10^3/uL (0.0-1.1); MONO % 5 % (0-9); NEUT # 3.8 x10^3/uL (1.8-7.7); NEUT % 64 % (31-73); PLATELET COUNT 285 x10^3/uL (140-400); RED BLOOD COUNT 3.67 x10^6/uL (4.30-5.70); RED CELL DISTRIBUTION WIDTH 14.8 % (11.5-14.5)
[2021-04-04 10:49] LABS: CREATININE 2.4 mg/dL (0.7-1.3); GFR 32.5; POTASSIUM 3.8 mmol/L (3.5-5.1)
[2021-04-04 11:01] LABS: ALBUMIN 1.9 g/dL (3.4-5.0); ALBUMIN/GLOBULIN RATIO 0.5 (1.0-1.7); TOTAL BILIRUBIN 0.3 mg/dL (0.2-1.0); TOTAL PROTEIN 5.6 g/dL (6.4-8.2)
== END ==
LOC: ONCLAB 10:08
PROVIDERS: ATTEND Internal Medicine Hematology & Oncology
DX: C18.3 Malignant neoplasm of hepatic flexure (principal)
CPT/HCPCS: 36415; 80053; 82378; 85025